=== PATIENT | male | born 1975 | race Caucasian/White ===

== ENCOUNTER 2022-10-19 11:10 | Inpatient (IN) ==
--- NOTE | 2022-10-19 12:24 | History & Physical Report ---
Date of Service October 19, 2022 Assessment & Plan (1) Diabetic foot infection: Plan: -Admit to med/surge -Currently stable -Initially noticed discoloration of his right great toe approximately 3 weeks ago, noticed pain, erythema, and swelling yesterday -XRay of the right foot at [facility] concerning for OM so transferred here for further evaluation and treatment -Stable leukocytosis today at 11 with left shift of 9, ESR of 34 with CRP of -Started on Vancomycin and Zosyn at [facility], due to continued leukocytosis and elevated inflammatory makes will continue on Vancomycin and Cefepime for now -Orthopedics consulted, they will see tomorrow, requesting MRI w/con of the Right foot, ordered -Will obtain arterial doppler with CRISTY of the RLE for further evaluation -Spelter control with Tylenol prn mild pain and 1 mg IV morphine q4h prn pain 5+ -DM II for now, will make NPO at midnight in case of OR tomorrow -BL SCD's for DVT PPX for now, will see if Ortho would want chemical PPX to be held at this time -AM CBC, CMP, Mag, PT/INR (2) Osteomyelitis of right foot: Plan: -Reported by ED staff at [facility] per their review of right foot xray -Will obtain MRI of the right foot w/con for further evaluation -ABX and management per diabetic foot infection (3) Hypokalemia: Plan: -Noted to be 3.2 on admission labs today -T-wave flattening noted on ECG but otherwise WNL -Likely due to his diuretic use -Will give 40 meq PO KCL q2h x 2 doses now -Hold diuretic for now -Will obtain mag level (4) DM II (diabetes mellitus, type II), controlled: Plan: -Hold metformin -Monitor BSG ACHS, goal is 110-140 -5 units lantus BID, CF 50, CR 15 for now -DM II diet -Adjust regimen as needed (5) Cough: Plan: -Patient has had a non-productive cough for the past month -No focal consolidation on CXR to suggest PNA, will need a non-emergent CT for follow up on left lung nodule -Will obtain full respiratory biofire -No signs of acute CHF on exam or imaging -Will try a duoneb and order prn antitussive for now, continue to monitor (6) Weight loss: Plan: -Patient's reports that the patient has unintentionally lost approximately 30 lbs since last February -Appetite has been good, no reported changes in bowel habits, neurologic symptoms, urinary symptoms -Has had the non-productive cough with left pulmonary nodule on CXR -Will need to ensure he has outpatient Chest CT scheduled prior to DC with close PCP FU (7) HTN (hypertension): Plan: -Stable -Continue amlodipine -Hold losartan-HCTZ for now with hypokalemia (8) Hyperlipemia: Plan: -Continue simvastatin (9) Cellulitis: (10) Abnormal CXR: Plan The patient was discussed with Dr. Monreal at the time of the admission History of Present Illness Chief Complaint: Osteomyelitis of the right great toe Constantin is a 46 year old male with a PMH significant for HTN, DMII with diabetic neuropathy, hyperlipidemia, and current smokeless tobacco use who was transferred to [facility] from [facility] due to concerns for OM of the great right toe and diabetic right foot wound. Per transfer documentation, the patient arrived to the [facility] ED yesterday after developing pain, swelling, and erythema of the great right toe. The patient remained stable. Labs were significant for a leukocytosis of 16 with left shift of 13, ESR of 21, and potassium of 3.2. Xray of the right foot was concerning for OM of the great right toe. The patient was started on Vancomycin and Zosyn, with his last dose of vancomyin given at 0900 today and last dose of zosyn given at 2pm yesterday. At the time of the exam the patient was lying in bed in no acute distress with his sitting bedside. He states that he started to develop pain, erythema, and swelling of the right great toe yesterday. When asked further, he states that he first noticed black discoloration of the right great toe approximately 3 weeks ago but did not think it was related to infection at that time. He has significant peripheral neuropathy of the feet from DM II and does not examine his feet regularly. His pain is currently a 3/10 and he denies recent fever or chills. His is concerned because he has had an approximately 30 lbs of unintentional weight loss since last February, he has not been trying to lose weight and has been eating frequently. Her has been using smokeless tobacco for 20+ years and had approximately 17 years of secondhand smoke exposure while growing up as both his parents smoke. He has had a non- productive cough for the past month, he denies previous hx of lung disease or CHF. He denies recent chest pain, SOB, abd pain, nausea, vomiting, diarrhea, changes in bowel habit or changes in stool calibers, melena, bloody BM's, dysuria, hematuria, LE swelling and recent trauma. He did have surgery shortly after due to pyloric stenosis and abdominal hernias. He states that he was born approximately 2 months prematurely. I explained that he will need to be evaluated by Orthopedics, who will need to take him to the OR during this admission for surgery. He is a full code and wishes for his to make medical decisions for him if he could not make them himself. Please refer to Dr. Monreal's attestation for any changes to the treatment plan Allergies Allergy/AdvReac Type Severity Reaction Status Date / Time No Known Allergies Allergy Unverified 10/19/22 13:47 Home Medications Medication Instructions Recorded Confirmed Type amlodipine 5 mg tablet 5 mg PO DAILY 10/19/22 10/19/22 History aspirin 81 mg PO DAILY 10/19/22 10/19/22 History losartan 100 1 tab PO DAILY 10/19/22 10/19/22 History mg-hydrochlorothiazide 25 mg tablet metformin 500 mg tablet 500 mg PO BID 10/19/22 10/19/22 History simvastatin 10 mg tablet 10 mg PO HS 10/19/22 10/19/22 History Past Med/Surg History Medical History (Updated 10/20/22 @ 09:05 by Richmond Monreal MD) DM II (diabetes mellitus, type II), controlled HTN (hypertension) Hyperlipemia Social History Smoking Status: Never smoker Do You Dip or Chew Tobacco: Yes; Hx Alcohol Use: Yes Hx Substance Use: No Preferred Language: [employer] Shift Lead Required: No Beliefs That Will Affect Care: None Current Living Situation: Family and Significant Other Current Living Situation Comment: patient living with significant other and patient's mother Other Information That Helps Us Care for You: No Feels Safe at Home: Yes Safety Concerns: Feels Safe At This Time Assistive Devices: Denture - Upper and Denture - Lower Physical Exam Physical Exam: Physical Exam: General: In no acute distress, older stated age, chronically ill appearing but non-toxic, poor hygiene HEENT: Normocephalic, atraumatic, no scleral icterus, pupils around round, symmetrical, and reactive to light, moist mucus membranes, trachea midline, no thyromegaly Chest/Pulm: No respiratory distress, symmetrical chest expansion, expiratory wheezing noted in the BL lower lung dos santos Cardiac: RRR, no murmurs noted Abdomen: Negative for ascites and bruising, normoactive bowel sounds, soft, non-tender to palpation throughout Musculoskeletal: Swelling and erythema of the right great to with associated discoloration and eschar, no other signs of acute infection or trauma noted Extremities: Radial, dorsalis pedis, and posterior tibial pulses are intact and symmetrical, no edema noted in the BL LE's Skin: Skin thickening of the medial aspect of the right great toe with blue/black skin changes on the distal aspect of the right great toe, erythema and swelling runs from the distal aspect to the proxial aspect of the right great toe, no signs of significant cellulitis Neuro: Alert and oriented to person, place, month, year, and president, no focal defects, CN II-XII tested and intact, no tremors noted Psych: No acute distress, calm and cooperative during the exam Results & Data Results & Data Laboratory Results Abnormal lab results 10/19/22 10/19/22 10/19/22 Range/Units 12:55 12:55 12:55 WBC 11.32 H (4.8-10.8) K/ul RBC 4.35 L (4.70-6.10) M/uL Hgb 12.7 L (14.0-18.0) g/dl Hct 36.0 L (42.0-52.0) % Neut # (Auto) 9.38 H (1.40-6.50) K/uL Lymph # (Auto) 0.90 L (1.2-3.4) K/uL [place] # (Auto) 0.95 H (0.11-0.59) K/uL ESR 34 H (0-15) mm/hr Sodium 135 L (136-145) mmol/L Potassium 3.2 L (3.5-5.1) mmol/L Glucose 119 H (70-99(Fasting)) mg/dl Calcium 8.5 L (8.6-10.3) mg/dl AST 10 L (13-39) U/L C-Reactive Protein 12.36 H (0-0.5) mg/dl Diagnostic Findings Chest X-Ray 10/19/22 12:42 XR chest 1V portable HISTORY: 46 years-old Male cough acute cough COMPARISON: None TECHNIQUE: AP view of the chest FINDINGS: Cardiomediastinal and hilar silhouettes are within normal limits. No pneumothorax, pleural effusion or overt pulmonary edema. An 0.8 cm nodular focus of the left midlung. Probable nipple shadow in the right lung base. Bones appear grossly intact. IMPRESSION: 1. No airspace consolidation typical for pneumonia. 2. 1.8 cm nodular focus of the left mid lung. Nonemergent follow-up chest CT recommended. ACT 112: Negative or not required by law. The above report was generated using voice recognition software. It may contain grammatical, syntax or spelling errors. Electronically signed by: Luis Miguel Stark M.D. 10/19/2022 1:23 PM ECG Additional Comments: Normal sinus rhythm Nonspecific T wave abnormality Abnormal ECG No previous ECGs available Code Status & VTE Plan Code Status Full code VTE Prophylaxis Plan VTE Prophylaxis will be ordered: Yes Supervising Physician Co-Signing Physician Notes I personally saw and examined the patient. I verified all bazan points and agree with Vargas Mary PA-C with the following exceptions and/or additions: 46 year old male with relatively recently diagnosed T2DM transfer from [facility] due to need for debridement for right 1st toe infection (no orthopedics at [place]). O/E A&Ox3, HS RRR, no murmurs, Chest CTAB, Abdo SNT, right 2st toe swelling with fluctuance, swelling and erythema up to ankle A/P Diabetic ulcer with surrounding cellulitis - Vancomycin + cefepime, US arterial doppler, consult orthopedics, NPO after midnight Abnormal CXR - given nodule seen on CXR, recent weight loss and possible need for surgery will get CT chest while here routinely in the morning to further evaluate this. Otherwise as above. PG Care Time/CCT Total # of Minutes Spent Total Time Spent with Patient: Total time spent is greater than 50% in coordination of care (as documented) at patient's floor/unit and/or counseling patient: C[place] [address] INT INP/OBS CARE MIN Patient Type Established Medical Decision Making High Complexity Diagnoses Diabetic foot infection E11.628; L08.9 Osteomyelitis of right foot M86.9 Hypokalemia E87.6 DM II (diabetes mellitus, type II), controlled E11.9 Cough R05.9 Weight loss R63.4 HTN (hypertension) I10 Hyperlipemia E78.5 Cellulitis L03.90 Abnormal CXR R93.89
[2022-10-19] MEDS ORDERED: GLUCAGON FOR INJ 1 MG VIAL SQ PRN (13:17)
[2022-10-19] MEDS ORDERED: DEXTROSE 50% 50 ML SYRINGE IV PRN (13:17)
[2022-10-19] MEDS ORDERED: GLUCOSE 10 TAB/TUBE PO PRN (13:17)
[2022-10-19] MEDS ORDERED: GLUCOSE 40% GEL 15 GM TUBE PO PRN (13:17)
[2022-10-19] MEDS ORDERED: CARBOHYDRATES FOR HYPOGLYCEMIA PO PRN (13:17)
[2022-10-19 13:19] LABS: Basophils # (auto) 0.03 K/uL (0-0.2); Basophils % (auto) 0.3 %; Eosinophils # (auto) 0.03 K/uL (0-0.50); Eosinophils % (auto) 0.3 %; Hemoglobin 12.7 g/dl (14.0-18.0); Immature Granulocytes # (auto) 0.03 K/uL (0.01-0.20); Immature Granulocytes % (auto) 0.3 %; Mean Corpuscular Hemoglobin 29.2 pg (25.0-34.0); Mean Corpuscular Hgb Conc 35.3 g/dL (32.0-36.0); Mean Corpuscular Volume 82.8 fL (80.0-100.0); Mean Platelet Volume 9.9 fL (9.4-12.4); Monocytes # (auto) 0.95 K/uL (0.11-0.59); Monocytes % (auto) 8.4 %; Neutrophils # (auto) 9.38 K/uL (1.40-6.50); Neutrophils % (auto) 82.7 %; Platelet Count 327 K/uL (130-400); RDW Coefficient of Variation 12.5 % (11.5-14.5); RDW Standard Deviation 38.5 fL (36.4-46.3); Red Blood Count 4.35 M/uL (4.70-6.10); White Blood Count 11.32 K/ul (4.8-10.8)
--- NOTE | 2022-10-19 13:25 | XRay Report ---
XR chest 1V portable HISTORY: 46 years-old Male cough acute cough COMPARISON: None TECHNIQUE: AP view of the chest FINDINGS: Cardiomediastinal and hilar silhouettes are within normal limits. No pneumothorax, pleural effusion o r overt pulmonary edema. An 0.8 cm nodular focus of the left midlung. Probable nipple shadow in the r ight lung base. Bones appear grossly intact. IMPRESSION: 1. No airspace consolidation typical for pneumonia. 2. 1.8 cm nodular focus of the left mid lung. Nonemergent follow-up chest CT recommended. ACT 112: Negative or not required by law. The above report was generated using voice recognition software. It may contain grammatical, syntax o r spelling errors. Electronically signed by: Luis Miguel Stark M.D. 10/19/2022 1:23 PM
[2022-10-19] MEDS ORDERED: ASPIRIN 81 MG ECTAB PO SCH (13:30)
[2022-10-19] MEDS ORDERED: VANCOMYCIN CONSULT ACTIVE PRN (13:30)
[2022-10-19 13:36] LABS: Albumin Globulin Ratio 1.1 (0.9-2); Albumin Level 3.5 gm/dl (3.4-5.0); BUN Creatinine Ratio 19.3 (10-20); Bilirubin,Total 0.8 mg/dl (0.2-1.0); C Reactive Protein 12.36 mg/dl (0-0.5); Calcium 8.5 mg/dl (8.6-10.3); Creatinine Clr Calc Pharmacy 105.6 ml/min; Est GFR (African American) 121.4 ml/min; Est GFR (Non-African American) 104.8 ml/min; Globulin 3.2 gm/dl (2.5-4.0); Potassium 3.2 mmol/L (3.5-5.1); Total Protein 6.7 gm/dl (6.0-8.3)
[2022-10-19] MEDS ORDERED: MoRPHine SULFATE 2 MG/ML CARP IV PRN (13:37)
[2022-10-19] MEDS ORDERED: Patient's ALLERGY Info needs ENTERED SCH (13:45)
[2022-10-19] MEDS: amLODIPine BESYLATE 5 MG TAB PO SCH (13:48)
[2022-10-19] MEDS: CEFEPIME 2,000 MG in SYRINGE 0 ML IV SCH ×2 (14:09→21:51)
[2022-10-19 14:43] LABS: Adenovirus PCR Not Detected (NotDetected); Bordetella parapertussis PCR Not Detected (NotDetected); Bordetella pertussis PCR Not Detected (NotDetected); Chlamydia pneumoniae PCR Not Detected (NotDetected); Coronavirus 229E PCR Not Detected (NotDetected); Coronavirus CoV-2 (COVID19)PCR Not Detected (NotDetected); Coronavirus HKU1 PCR Not Detected (NotDetected); Coronavirus NL63 PCR Not Detected (NotDetected); Coronavirus OC43PCR Not Detected (NotDetected); Human Metapneumovirus PCR Not Detected (NotDetected); Influenza A PCR Not Detected (NotDetected); Influenza B PCR Not Detected (NotDetected); Mycoplasma pneumoniae PCR Not Detected (NotDetected); Parainfluenza Virus 1 PCR Not Detected (NotDetected); Parainfluenza Virus 2 PCR Not Detected (NotDetected); Parainfluenza Virus 3 PCR Not Detected (NotDetected); Parainfluenza Virus 4 PCR Not Detected (NotDetected); Respiratory Syncytial VirusPCR Not Detected (NotDetected); Rhinovirus/Enterovirus PCR Not Detected (NotDetected)
[2022-10-19] MEDS ORDERED: ALBUT/IPRATROP 3MG/0.5MG NEB 3 ML VIAL NEB STA (14:48)
[2022-10-19] MEDS: POTASSIUM CHLORIDE CRTAB 20 MEQ TABCR PO SCH ×2 (15:04→17:32)
[2022-10-19] MEDS ORDERED: GADOBUTROL 65ML VIAL IV ONE ×2 (16:57→17:01)
[2022-10-19] MEDS: INSULIN ASPART PER UNIT CHARGE SC SCH ×2 (17:36→21:23)
[2022-10-19] MEDS: VANCOMYCIN HCL 1,250 MG in SODIUM CHLORIDE 0.9% 250 ML IV SCH (17:41)
--- NOTE | 2022-10-19 18:31 | Magnetic Resonance Report ---
MR foot RT wo/w con HISTORY: 46 years-old Male Concern for OM of right foot patient presents with open wound of the righ t great toe COMPARISON: Radiographs from outside facility 10/18/2022 TECHNIQUE: Multiplanar multisequence MRI of the right foot was obtained both with and without the use of IV contrast. FINDINGS: Motion degraded exam. There is extensive enhancing subcutaneous and deep tissue edema of the foot, most pronounced dorsally . Intramuscular edema is also present. Subcutaneous gas involves the plantar tissues of the great toe with moderate subcutaneous and deep tissue edema with associated skin thickening. There is an associ ated ulcer/open wound on the distal plantar surface. No drainable fluid collection. Moderate marrow e jono the first distal phalanx. No associated cortical erosions are identified. Mild osteoarthritis. M arginal spurring of the first MTP joint. Ligaments and tendons are suboptimally dilated secondary to the motion artifact. Lisfranc ligament ap pears intact. IMPRESSION: 1. Motion degraded exam. 2. Findings suggestive of cellulitis with myositis of the foot. 3. Plantar ulcer of the distal great toe with subcutaneous gas. This may be secondary to direct exten scotty versus gas-forming organism. 4. Moderate marrow edema of the first distal phalanx without osseous erosion suggestive of reactive o steitis versus early osteomyelitis. 5. No abscess. ACT 112: Negative or not required by law. The above report was generated using voice recognition software. It may contain grammatical, syntax o r spelling errors. Electronically signed by: Luis Miguel Stark M.D. 10/19/2022 6:28 PM
--- NOTE | 2022-10-19 18:34 | Pharmacy Report ---
Pharmacy PK ABX Note - Date of Service October 19, 2022 - Assessment and Plan Assessment 46 year old M receiving cefepime/vancomycin for treatment of diabetic foot ulcer (r/o osteomyelitis). Pertinent microbiologic data includes: blood cultures pending. Foot MRI and Ortho evaluation pending. Day # 1/? of antimicrobial therapy. Plan Vancomycin * Loading dose: 1250 mg IV at 0900 (given in [facility]) * Stat vancomycin random ordered to assess for safety/clearance, level below goal range * Maintenance dose: 1250 mg IV every 12 hours beginning at 1700 * Regimen is predicted to achieve target AUC/SANDIE of 400-600 mg/L.hr, estimated AUC/SANDIE 519 on current regimen, goal AUC/SANDIE 500-600 for potential osteomyelitis * Daily serum creatinine ordered, Trough level ordered for: 10/21/22 @ 0400 (before 4th dose) Pharmacy will continue to follow and will adjust dose/frequency as necessary. Thank you. Pharmacy has transitioned to AUC monitoring for vancomycin. AUC/SANDIE is the preferred PK/PD target and is associated with decreased risk of nephrotoxicity compared to traditional trough targets.
[2022-10-19] MEDS: LANTUS PER UNIT CHARGE SQ SCH (21:23)
[2022-10-19] MEDS: SIMVASTATIN 10 MG TAB PO SCH (21:24)
[2022-10-19] MEDS: guaiFENesin SUGAR FREE 200 MG/10 ML UDC PO PRN (21:24)
[2022-10-19] MEDS: ACETAMINOPHEN 325 MG TAB PO PRN (21:31)
[2022-10-20] MEDS ORDERED: Nursing to Pharmacy Communication SCH ×2 (01:45→16:30)
[2022-10-20] MEDS: VANCOMYCIN HCL 1,250 MG in SODIUM CHLORIDE 0.9% 250 ML IV SCH ×2 (04:36→16:30)
[2022-10-20] MEDS: INSULIN ASPART PER UNIT CHARGE SC SCH ×4 (05:53→21:09)
[2022-10-20] MEDS: CEFEPIME 2,000 MG in SYRINGE 0 ML IV SCH ×3 (07:22→21:10)
[2022-10-20] MEDS: ASPIRIN 81 MG ECTAB PO SCH (07:33)
[2022-10-20] MEDS: amLODIPine BESYLATE 5 MG TAB PO SCH (07:33)
[2022-10-20] MEDS: LANTUS PER UNIT CHARGE SQ SCH ×2 (08:47→21:09)
[2022-10-20 09:48] LABS: Basophils # (auto) 0.04 K/uL (0-0.2); Basophils % (auto) 0.4 %; Eosinophils # (auto) 0.08 K/uL (0-0.50); Eosinophils % (auto) 0.9 %; Hematocrit (blood only) 35.2 % (42.0-52.0); Hemoglobin 12.6 g/dl (14.0-18.0); Immature Granulocytes # (auto) 0.04 K/uL (0.01-0.20); Immature Granulocytes % (auto) 0.4 %; Lymphocytes # (auto) 1.07 K/uL (1.2-3.4); Lymphocytes % (auto) 11.8 %; Mean Corpuscular Hemoglobin 29.4 pg (25.0-34.0); Mean Corpuscular Hgb Conc 35.8 g/dL (32.0-36.0); Mean Corpuscular Volume 82.1 fL (80.0-100.0); Mean Platelet Volume 10.1 fL (9.4-12.4); Monocytes # (auto) 0.71 K/uL (0.11-0.59); Monocytes % (auto) 7.8 %; Neutrophils # (auto) 7.15 K/uL (1.40-6.50); Neutrophils % (auto) 78.7 %; Platelet Count 334 K/uL (130-400); RDW Coefficient of Variation 12.8 % (11.5-14.5); RDW Standard Deviation 38.7 fL (36.4-46.3); Red Blood Count 4.29 M/uL (4.70-6.10); White Blood Count 9.09 K/ul (4.8-10.8)
[2022-10-20 10:15] LABS: Albumin Level 3.3 gm/dl (3.4-5.0); BUN Creatinine Ratio 15.2 (10-20); Bilirubin,Total 0.6 mg/dl (0.2-1.0); C Reactive Protein 7.77 mg/dl (0-0.5); Calcium 8.4 mg/dl (8.6-10.3); Creatinine Clr Calc Pharmacy 110.8 ml/min; Est GFR (African American) 123.9 ml/min; Est GFR (Non-African American) 106.9 ml/min; Globulin 3.4 gm/dl (2.5-4.0); Potassium 3.5 mmol/L (3.5-5.1); Total Protein 6.7 gm/dl (6.0-8.3)
[2022-10-20] MEDS ORDERED: diphenhydrAMINE 50 MG/ML VIAL IV STA (10:16)
[2022-10-20 10:19] LABS: Prothrombin Time 11.4 Seconds (9.0-12.0)
[2022-10-20 10:31] LABS: Estimated Average Glucose 117 mg/dl; Hemoglobin A1C 5.7 % (4.5-5.6)
[2022-10-20] MEDS ORDERED: OPTIRAY 320 100ml IV ONE (10:35)
--- NOTE | 2022-10-20 11:06 | CT Scan Report ---
CT SCAN OF THE CHEST WITH IV CONTRAST CLINICAL HISTORY: Abnormal chest x-ray. Suspected pulmonary nodule. COMPARISON STUDY: Chest x-ray dated 10/19/2022. TECHNIQUE: Following the IV administration of 90 cc of Optiray 320, CT scan of the thorax was perform ed from the thoracic inlet to the upper abdomen. Images are reviewed in the axial, sagittal, and eryn nal planes. IV contrast was administered without complication. A dose lowering technique was utilize d adhering to the principles of ALARA. CT DOSE: 799.64 mGy.cm FINDINGS: Thyroid: Imaged portions of the thyroid gland are normal in size and attenuation. A coarse calcificat ion is seen in the right lobe. Thoracic aorta: The thoracic aorta is normal in caliber and demonstrates bovine variant arch anatomy. No dissection is seen. Pulmonary vasculature: The pulmonary trunk is normal in caliber. There are no filling defects identif ied in the central pulmonary vessels to indicate pulmonary embolus. Note that this examination was no t protocoled for evaluation of the pulmonary arteries. Heart: The heart is top normal in size and without pericardial effusion. Lungs and pleural spaces: There is patchy airspace consolidation in the right middle, with mild tree- in-bud consolidation also seen at the right lung base. Additionally, there is a 2.3 cm irregular nodu le in the left lower lobe along the major fissure seen on image #115. This corresponds to the abnorma lity seen on yesterday's chest x-ray. No pleural effusion is identified. The trachea and central airw ays are clear. Mediastinum: There is no mediastinal lymphadenopathy. Mayi: Clear. Axillae: There is no axillary lymphadenopathy. Upper abdomen: There is a small hiatal hernia. A calcified granuloma is noted in the liver. Skeletal structures: No lytic or blastic bony lesions are seen. There are minimal chronic appearing c ompression deformities in the thoracic spine. IMPRESSION: 1. There is patchy airspace consolidation in the right middle lobe, as well as tree-in-bud nodularity in the right lower lobe. This is typical for an infectious/inflammatory pneumonitis. Clinical correl ation will be required. 2. There is a 2.3 cm irregular nodular density in the left lower lobe along the major fissure, which corresponds to the abnormality seen on yesterday's chest x-ray. There is is pathologically indetermin ant, and given the findings in the right lung may be on an infectious/inflammatory basis. Neoplasm is to be excluded, and a one-month follow-up chest CT is recommended for reassessment. 3. There is no mediastinal or hilar lymphadenopathy. 4. No pleural effusion is seen. 5. Additional findings as above. ACT 112: Positive. There are findings on this exam that require communication between the performing entity and the patient following Patient Test Result Information Act ([place] Act 112) guidelines. Electronically signed by: Tobi Katz M.D. 10/20/2022 11:05 AM
--- NOTE | 2022-10-20 11:15 | Ultrasound Report ---
US arterial duplex LE RT CLINICAL HISTORY: diabetic foot wounds TECHNIQUE: Real-time grayscale and color and spectral Doppler ultrasound imaging of the right lower e xtremity arteries was performed. Measurements calculated based NASCET criteria. COMPARISON: None available at the time of this dictation. FINDINGS: Right lower extremity Doppler: No significant plaque is seen. Triphasic waveforms are seen throughout without elevated velocities. Multiple lymph nodes are seen in the right inguinal region measuring up to 1.2 cm in short axis with fatty dragan. ANKLE/BRACHIAL INDEX (CRISTY): Brachial: Right: 175 mmHg. Ankle (dorsalis pedis): Right: >225 mmHg. Ankle (posterior tibial): Right: >225 mmHg. Ankle/brachial index: Right: >1.0 Reference ranges: Normal Ankle/Brachial Index (CRISTY) 1.0-1.4; 0.91-0.99 borderline; < or = 0.9 abnormal (0.7-0.89 mild, 0.51-0.69 moderate, < or = 0.5 severe peripheral arterial disease). Normal Toe/Brachial Index (TBI) > or = 0.6; < 0.6 abnormal (0.34-0.59 mild, 0.12-0.34 moderate, < or = 0.11 severe peripheral arterial disease). IMPRESSION: 1. No hemodynamically significant stenosis. 2. Normal ankle-brachial indices. ACT 112: Negative or not required by law. Electronically signed by: Altaf Murguia M.D. 10/20/2022 11:14 AM
[2022-10-20] MEDS: SIMVASTATIN 10 MG TAB PO SCH (21:10)
[2022-10-20] MEDS: guaiFENesin SUGAR FREE 200 MG/10 ML UDC PO PRN (21:11)
[2022-10-20] MEDS ORDERED: HEPARIN SOD 5,000 UNIT/0.5 ML VIAL SQ STA (22:53)
--- NOTE | 2022-10-20 22:53 | Hospitalist Progress Note ---
Date of Service October 20, 2022 Assessment & Plan (1) Diabetic foot infection: Plan: -Admit to med/surge -Currently stable -Initially noticed discoloration of his right great toe approximately 3 weeks ago, noticed pain, erythema, and swelling yesterday -XRay of the right foot at [facility] concerning for OM so transferred here for further evaluation and treatment -Stable leukocytosis today at 11 with left shift of 9, ESR of 34 with CRP of -Started on Vancomycin and Zosyn at [facility], due to continued leukocytosis and elevated inflammatory makes will continue on Vancomycin and Cefepime for now -Orthopedics consulted, they will see tomorrow, requesting MRI w/con of the Right foot, ordered -Will obtain arterial doppler with CRISTY of the RLE for further evaluation -[place] control with Tylenol prn mild pain and 1 mg IV morphine q4h prn pain 5+ -DM II for now, will make NPO at midnight in case of OR tomorrow -BL SCD's for DVT PPX for now, will see if Ortho would want chemical PPX to be held at this time -AM CBC, CMP, Mag, PT/INR On 10/20 will be NPO after midnight, plan for amputation of infected tissue on 10/21 (2) Osteomyelitis of right foot: Plan: -Reported by ED staff at [facility] per their review of right foot xray -Will obtain MRI of the right foot w/con for further evaluation -ABX and management per diabetic foot infection (3) Hypokalemia: Plan: -Noted to be 3.2 on admission labs today -T-wave flattening noted on ECG but otherwise WNL -Likely due to his diuretic use -Will give 40 meq PO KCL q2h x 2 doses now -Hold diuretic for now -Will obtain mag level (4) DM II (diabetes mellitus, type II), controlled: Plan: -Hold metformin -Monitor BSG ACHS, goal is 110-140 -5 units lantus BID, CF 50, CR 15 for now -DM II diet -Adjust regimen as needed (5) Cough: Plan: -Patient has had a non-productive cough for the past month -No focal consolidation on CXR to suggest PNA, will need a non-emergent CT for follow up on left lung nodule -Will obtain full respiratory biofire -No signs of acute CHF on exam or imaging -Will try a duoneb and order prn antitussive for now, continue to monitor (6) Weight loss: Plan: -Patient's reports that the patient has unintentionally lost approximately 30 lbs since last February -Appetite has been good, no reported changes in bowel habits, neurologic symptoms, urinary symptoms -Has had the non-productive cough with left pulmonary nodule on CXR -Will need to ensure he has outpatient Chest CT scheduled prior to DC with close PCP FU (7) HTN (hypertension): Plan: -Stable -Continue amlodipine -Hold losartan-HCTZ for now with hypokalemia (8) Hyperlipemia: Plan: -Continue simvastatin (9) Cellulitis: (10) Abnormal CXR: Admission and Anticipated Discharge Date Admission Date: October 19, 2022 Subjective Patient reports no new symptoms. Review of Systems Review of Systems: All systems reviewed & are unremarkable except as noted in HPI & below Physical Exam Physical Exam: General: In no acute distress, older stated age, chronically ill appearing but non-toxic HEENT: Normocephalic, atraumatic Chest/Pulm: No respiratory distress, symmetrical chest expansion, expiratory wheezing noted in the BL lower lung dos santos Cardiac: RRR, no murmurs noted Abdomen: Negative for ascites and bruising, normoactive bowel sounds, soft, non-tender to palpation throughout Musculoskeletal: Swelling and erythema of the right great to with associated discoloration and eschar, no other signs of acute infection or trauma noted Extremities: Radial, dorsalis pedis, and posterior tibial pulses are intact and symmetrical, no edema noted in the BL LE's Skin: Skin thickening of the medial aspect of the right great toe with blue/black skin changes on the distal aspect of the right great toe, erythema and swelling runs from the distal aspect to the proxial aspect of the right great toe, no signs of significant cellulitis Neuro: Alert and oriented to person, place, month, year, and president, no focal defects, CN II-XII tested and intact, no tremors noted Psych: No acute distress, calm and cooperative during the exam Results & Data Results & Data Vital Signs (Past 12 Hours) Vital Signs Temp Pulse Resp BP Pulse Ox O2 Del Method 10/20/22 21:26 Room Air 10/20/22 20:49 36.4 C L 76 18 167/90 H 98 Room Air 10/20/22 16:38 36.7 C 76 17 166/92 H 98 Room Air PG Care Time/CCT Total # of Minutes Spent Total Time Spent with Patient: Total time spent is greater than 50% in coordination of care (as documented) at patient's floor/unit and/or counseling patient: Coding Level of Care Code 01322 SUB INP/OBS CARE 2/35MIN Diagnoses Diabetic foot infection E11.628; L08.9 Osteomyelitis of right foot M86.9 Hypokalemia E87.6 DM II (diabetes mellitus, type II), controlled E11.9 Cough R05.9 Weight loss R63.4 HTN (hypertension) I10 Hyperlipemia E78.5 Cellulitis L03.90 Abnormal CXR R93.89
--- NOTE | 2022-10-21 01:00 | Consultation Report ---
DATE OF CONSULTATION: 10/20/2022. PERTINENT HISTORY: This is a 46-year-old gentleman seen at request of Dr. Richmond Monreal and Dr. Dipak Beltran for complaints of right great toe pain, swelling, redness and ulceration. The patient elan martinez noticed discoloration of his right great toe approximately 3 weeks prior to admission. He n oticed pain, erythema and swelling, which worsened the day before admission. He was seen at [facility] where he had x-rays of the right foot. Radiographs were concerning for osteom yelitis, so he was transferred here to [facility] for further care and management. He was noted to have leukocytosis of 11.0 with a left shift of 9, ESR of 34 with an elevated CRP not ed to be 12.36. The patient was placed on IV antibiotics. Radiographs were transferred from [facility] and the patient was then scheduled for an MRI with contrast to further delineate the z one of injury of the great toe. Per MRI noted to have features consistent with osteitis, possible ea rly osteomyelitis of the distal phalanx of the right great toe with gas noted at the plantar distal a spect of the right great toe. No other complaints. The patient also did note that he has had a nonp roductive cough for the past month and there were some changes on his chest x-ray requiring further w orkup. The patient had complaints of discomfort related to the right great toe. No other concerns. PAST MEDICAL HISTORY: Diabetes mellitus, type 2, hypertension, hyperlipidemia. PAST SURGICAL HISTORY: Noncontributory. ALLERGIES: No known drug allergies. MEDICATIONS: Amlodipine, aspirin, losartan, metformin, and simvastatin. SOCIAL HISTORY: The patient denies cigarette use; however, he does use smokeless tobacco. Denies si gnificant alcohol use. Denies drug use. He lives with his significant other and his mother. He is employed at [employer] in [employer]. PHYSICAL EXAMINATION: This is a 46-year-old gentleman, who is alert and oriented x3. Speech is christiano r and fluent. Affect is appropriate. He answers questions appropriately. He currently says timing with his significant other during the evaluation. Focused examination of the right foot demonstrates significant swelling of the right great toe from the first metatarsophalangeal joint extending dista lly. The redness and streaking, which begins at the distal tip of the right great toe extending prox imally with some streaking noted along the medial midfoot extending to the hindfoot. The patient has tenderness to palpation over the great toe. Limited range of motion due to pain and swelling. Peda l pulses are palpable, 2/4 bilateral feet. Bilateral feet are warm. Sensation is intact with normal sensory distribution proximal to the mid foot. There are features consistent with early neuropathy distal to the mid foot, bilateral feet. There is an ulceration of the distal tip of the right great toe and there is skin thickening of the right great toe with callus formation and there appears to be gas formation in the subepithelial, subdermal region of the distal aspect of right great toe. Radiographs and MRI reviewed. Laboratories reviewed. IMPRESSION: 1. Right great toe osteomyelitis of distal phalanx. 2. Diabetic ulceration, right great toe. 3. Exostoses of the proximal phalanx, great toe. RECOMMENDATION: At this time, the patient is scheduled for surgical amputation of the distal phalanx of the right great toe as well as exostectomy of the proximal phalanx of the right great toe. He tom uld remain on IV antibiotics for approximately 24-48 hours after surgical procedure is completed and then transitioned home with p.o. antibiotics per recommendation of the medical team. All potential r isks, benefits, complications, alternatives and rehabilitation were discussed with the patient and alhaji cortez questions answered. The patient is currently scheduled for surgery to occur on the morning of 10/2022. Thank you for the opportunity to consult in care of this patient. Job ID: [id number]
[2022-10-21] MEDS ORDERED: Nursing to Pharmacy Communication SCH ×2 (02:45→16:30)
[2022-10-21] MEDS ORDERED: VANCOMYCIN LEVEL ONE (04:00)
[2022-10-21 04:32] LABS: Basophils # (auto) 0.04 K/uL (0-0.2); Basophils % (auto) 0.5 %; Eosinophils # (auto) 0.17 K/uL (0-0.50); Eosinophils % (auto) 2.1 %; Hematocrit (blood only) 36.2 % (42.0-52.0); Hemoglobin 12.7 g/dl (14.0-18.0); Immature Granulocytes # (auto) 0.02 K/uL (0.01-0.20); Immature Granulocytes % (auto) 0.2 %; Lymphocytes # (auto) 1.45 K/uL (1.2-3.4); Mean Corpuscular Hemoglobin 29.5 pg (25.0-34.0); Mean Corpuscular Hgb Conc 35.1 g/dL (32.0-36.0); Mean Corpuscular Volume 84.2 fL (80.0-100.0); Mean Platelet Volume 10.1 fL (9.4-12.4); Monocytes # (auto) 0.73 K/uL (0.11-0.59); Monocytes % (auto) 9.1 %; Neutrophils # (auto) 5.64 K/uL (1.40-6.50); Neutrophils % (auto) 70.1 %; Platelet Count 352 K/uL (130-400); RDW Coefficient of Variation 12.7 % (11.5-14.5); RDW Standard Deviation 39.2 fL (36.4-46.3); White Blood Count 8.05 K/ul (4.8-10.8)
[2022-10-21 04:41] LABS: Albumin Level 3.2 gm/dl (3.4-5.0); BUN Creatinine Ratio 20.4 (10-20); Bilirubin,Total 0.4 mg/dl (0.2-1.0); C Reactive Protein 5.03 mg/dl (0-0.5); Calcium 8.5 mg/dl (8.6-10.3); Creatinine Clr Calc Pharmacy 89.3 ml/min; Est GFR (Non-African American) 91.4 ml/min; Globulin 3.1 gm/dl (2.5-4.0); Potassium 3.6 mmol/L (3.5-5.1); Total Protein 6.3 gm/dl (6.0-8.3)
[2022-10-21] MEDS: CEFEPIME 2,000 MG in SYRINGE 0 ML IV SCH ×3 (05:01→21:33)
[2022-10-21] MEDS: VANCOMYCIN HCL 1,250 MG in SODIUM CHLORIDE 0.9% 250 ML IV SCH ×3 (05:03→21:33)
[2022-10-21 05:15] LABS: Prothrombin Time 11.1 Seconds (9.0-12.0)
--- NOTE | 2022-10-21 06:14 | Electrocardiogram Report ---
Test Reason : Blood Pressure : / mmHG Vent. Rate : 076 BPM Atrial Rate : 076 BPM P-R Int : 136 ms QRS Dur : 088 ms QT Int : 388 ms P-R-T Axes : 047 036 103 degrees QTc Int : 436 ms Normal sinus rhythm Nonspecific T wave abnormality Abnormal ECG No previous ECGs available Confirmed by Jeff Goddard ([id number]) on 10/21/2022 6:13:45 AM Referred By: MORENITA GILLESPIE Confirmed By:Jeff Goddard
[2022-10-21] MEDS: INSULIN ASPART PER UNIT CHARGE SC SCH ×4 (06:34→21:32)
[2022-10-21] MEDS: amLODIPine BESYLATE 5 MG TAB PO SCH (07:24)
[2022-10-21] MEDS: ASPIRIN 81 MG ECTAB PO SCH (07:24)
[2022-10-21] MEDS: LANTUS PER UNIT CHARGE SQ SCH ×2 (07:24→21:32)
--- NOTE | 2022-10-21 11:31 | Pharmacy Report ---
Pharmacy PK ABX Note - Date of Service October 21, 2022 - Assessment and Plan Assessment 10/20 * Pt remains on vancomycin and cefepime for R great toe infection. * MRI with possible early osteomyelitis. Pt is scheduled for surgical amputation today. * Per ortho, rec continue IV abx [id number] post-op with transition to PO abx at discharge. * Vanc level obtained this morning. While not yet at steady-state, level was lower than desired for indication. Dosing re-timed as modified "load" to get vanc level into goal AUC range more quickly. 10/19 * 46 year old M receiving cefepime/vancomycin for treatment of diabetic foot ulcer (r/o osteomyelitis). Pertinent microbiologic data includes: blood cultures pending. Foot MRI and Ortho evaluation pending. * Day # 1/? of antimicrobial therapy. Plan Vancomycin * Loading dose: 1250 mg IV at 0900 (given in [facility] ER) * Maintenance dose: continue 1250 mg IV every 12 hours, with next dose closely following this morning's dose * Regimen is predicted to achieve target AUC/SANDIE 500-600, for potential osteomyelitis * No further levels have been ordered at this time. If patient remains on vanc beyond an additional 48hr, will re-consider the need for additional monitoring. Pharmacy will continue to follow and will adjust dose/frequency as necessary. Thank you. Pharmacy has transitioned to AUC monitoring for vancomycin. AUC/SANDIE is the preferred PK/PD target and is associated with decreased risk of nephrotoxicity compared to traditional trough targets.
--- NOTE | 2022-10-21 11:37 | History & Physical Bridge Note ---
Date of Service October 21, 2022 History & Physical Bridge Note I have examined the patient, reviewed the History & Physical and in the interval since the performance of the History & Physical I have noted the following changes of clinical significance: no changes noted
[2022-10-21] MEDS ORDERED: MIDAZOLAM HCL 1 MG/ML 2ML VIAL ONE (11:39)
[2022-10-21] MEDS ORDERED: LIDOCAINE 2% 2 ML VIAL/AMP(20MG/ML) INFIL ONE (11:39)
[2022-10-21] MEDS ORDERED: ONDANSETRON INJ 2 MG/ML 2 ML VIAL ONE (11:39)
[2022-10-21] MEDS ORDERED: PROPOFOL IV EMULSION 10 MG/ML 20 ML VIAL IV ONE ×2 (11:39→12:51)
[2022-10-21] MEDS ORDERED: fentaNYL citrate PF 100 MCG/2 ML VIAL ONE (11:39)
[2022-10-21] MEDS ORDERED: BUPIVACAINE 0.5 % 5 MG/1 ML MPF 30ML VIAL ONE (11:58)
[2022-10-21] MEDS ORDERED: ceFAZolin 330 MG/ML 1 GM VIAL ONE (11:58)
--- NOTE | 2022-10-21 12:17 | Anesthesiology Consultation ---
Date of Service October 21, 2022 Assessment & Plan Chart Review Chart Review: Acceptable Risk for Surgery Consults Requested none History Surgery Operation Date: 10/21/22 11:25 Proposed Procedures p Right Great Toe Amputation - Kan Preston DO Height/Weight Height: 5 ft 5 in Weight: 77.111 kg Allergies Allergy/AdvReac Type Severity Reaction Status Date / Time No Known Allergies Allergy Unverified 10/19/22 13:47 Medications Home Medications Medication Instructions Recorded Confirmed Last Taken amlodipine 5 mg tablet 5 mg PO DAILY 10/19/22 10/19/22 Unknown aspirin 81 mg PO DAILY 10/19/22 10/19/22 Unknown losartan 100 1 tab PO DAILY 10/19/22 10/19/22 Unknown mg-hydrochlorothiazide 25 mg tablet metformin 500 mg tablet 500 mg PO BID 10/19/22 10/19/22 Unknown simvastatin 10 mg tablet 10 mg PO HS 10/19/22 10/19/22 Unknown Active Medications Generic Name Dose Route Start Last Admin Trade Name Freq PRN Reason Stop Dose Admin Acetaminophen 650 mg 10/19/22 13:37 10/19/22 21:31 Acetaminophen 325 Mg Tab PO 11/18/22 13:36 650 mg Q4H PRN Administration pain(1,2,3,4) or fever Amlodipine Besylate 5 mg 10/19/22 13:30 10/21/22 07:24 Amlodipine Besylate 5 Mg Tab PO 11/18/22 13:29 5 mg DAILY CATALINA Administration Aspirin 81 mg 10/20/22 09:00 10/21/22 07:24 Aspirin 81 Mg Ectab PO 11/19/22 08:59 81 mg DAILY CATALINA Administration Guaifenesin 200 mg 10/19/22 15:11 10/20/22 21:11 Guaifenesin Sugar Free 200 Mg/10 Ml Udc PO 11/18/22 15:10 200 mg Q6H PRN Administration Cough Cefepime HCl 2,000 mg/ Syringe 20 mls @ 5 mls/min 10/19/22 14:00 10/21/22 05:01 IV 11/30/22 13:59 5 mls/min Q8H CATALINA Administration Protocol Vancomycin HCl 1,250 mg/ 275 mls @ 100 mls/hr 10/19/22 17:00 10/21/22 10:38 Sodium Chloride IV 11/30/22 16:59 100 mls/hr Q12H CATALINA Administration Protocol Insulin Aspart 0 units 10/21/22 06:00 10/21/22 11:31 Insulin Aspart Per Unit Charge SC 11/19/22 16:29 Not Given Q6 CATALINA Insulin Glargine 5 units 10/19/22 21:00 10/21/22 07:24 Lantus Per Unit Charge SQ 11/18/22 20:59 Not Given BID CATALINA Simvastatin 10 mg 10/19/22 21:00 10/20/22 21:10 Simvastatin 10 Mg Tab PO 11/18/22 20:59 10 mg HS CATALINA Administration NPO Date Last Intake of Fluids: 10/20/22 Time Last Intake of Fluids: 21:00 Date Last Intake of Solids: 10/20/22 Time Last Intake of Solids: 21:00 Past Medical History Medical History (Updated 10/20/22 @ 09:05 by Richmond Monreal MD) DM II (diabetes mellitus, type II), controlled HTN (hypertension) Hyperlipemia Social History Smoking Status: Never smoker tobacco type: smokeless tobacco Do You Dip or Chew Tobacco: Yes Hx Alcohol Use: Yes alcohol intake frequency: holidays/special occasions only Alcohol Intake Frequency Comment: very seldom, no hard liquor Hx Substance Use: No Physical Exam Vital Signs Last Vital Signs Temp 36.8 C 10/21/22 11:47 Pulse 69 10/21/22 11:47 Resp 18 10/21/22 11:47 BP 169/107 H 10/21/22 11:47 Pulse Ox 99 10/21/22 11:47 O2 Del Method Room Air 10/21/22 11:47 Testing Laboratory Results 10/21/22 04:11 10/21/22 04:11 PT 11.1 Seconds (9.0-12.0) 10/21/22 04:11 INR 1.0 (0.9-1.1) 10/21/22 04:11 Hemoglobin A1c 5.7 % (4.5-5.6) H 10/20/22 09:19 10/19/22 12:55 Aerobic Blood Culture - Preliminary Blood No growth in Aerobic bottle after 24 hours. Anaerobic Blood Culture - Preliminary No growth in Anaerobic bottle after 24 hours. 10/19/22 12:55 Aerobic Blood Culture - Preliminary Blood No growth in Aerobic bottle after 24 hours. Anaerobic Blood Culture - Preliminary No growth in Anaerobic bottle after 24 hours. 10/21/22 10/21/22 11:22 06:32 POC Glucose 91 108 H
[2022-10-21] MEDS ORDERED: fentaNYL citrate PF 100 MCG/2 ML VIAL IV PRN (12:18)
[2022-10-21] MEDS ORDERED: ONDANSETRON INJ 2 MG/ML 2 ML VIAL IV PRN (12:18)
[2022-10-21] MEDS ORDERED: ATROPINE SULFATE 0.1 MG/ML 10ML SYR IV PRN (12:18)
[2022-10-21] MEDS ORDERED: ePHEDrine sulfate 50 MG/ML AMP IV PRN (12:18)
[2022-10-21] MEDS ORDERED: HYDROmorphone INJ 2 MG/ML SYR/VIAL IV PRN (12:18)
[2022-10-21] MEDS ORDERED: PROMETHAZINE HCL 12.5 MG in SODIUM CHLORIDE 0.9% 50 ML IV PRN (12:18)
--- NOTE | 2022-10-21 13:25 | Post Operative Brief Note ---
Immediate Post Op Note v1 Date of Surgery October 21, 2022 Pre & Post Diagnosis Operation Date: 10/21/22 11:25 Pre-Op Diagnosis: 1. Right great toe osteomyelitis of distal phalanx. 2. Diabetic ulceration, right great toe. 3. Exostoses of the proximal phalanx, great toe. Post-Op Diagnosis: 1. Right great toe osteomyelitis of distal phalanx. 2. Diabetic ulceration, right great toe. 3. Exostoses of the proximal phalanx, great toe. I identified the patient and participated in the time-out.: Yes Procedure Operation Date: 10/21/22 11:25 Actual Procedures p #1 Right Great Toe Amputation distal phalanx and necrotic tissue. #2 exostect leana proximal phalanx great toe. #3 debridement diabetic ulceration plantar medial great toe 1.0 cm x 1.0 cm. (Right) - Kan Preston DO Surgeon Kan Preston DO Yeast Tender None Estimated Blood Loss 1 Findings Consistent with Post-Op Diagnosis Specimens Distal phalanx and tissue right great toe amputation Anesthesia Type MAC Regional Complications none Disposition Accompanied Patient To Recovery: No
--- NOTE | 2022-10-21 13:30 | Anesthesiology Progress Note ---
Date of Service October 21, 2022 Anesthesia Post Procedure Vital Signs Vital Signs: Temp Pulse Pulse Pulse Resp BP BP 10/21/22 13:20 76 16 144/93 H 10/21/22 13:14 36.8 C 83 17 133/88 10/21/22 11:47 36.8 C 69 69 18 169/107 H 10/21/22 09:16 69 163/96 H 10/21/22 07:20 36.4 C L 85 18 172/104 H 10/20/22 21:26 10/20/22 20:49 36.4 C L 76 18 167/90 H 10/20/22 16:38 36.7 C 76 17 166/92 H Pulse Ox O2 Del Method O2 Flow Rate 10/21/22 13:20 99 Oxymask 9 10/21/22 13:14 98 Oxymask 9 10/21/22 11:47 99 Room Air 10/21/22 09:16 98 Room Air 10/21/22 07:20 97 Room Air 10/20/22 21:26 Room Air 10/20/22 20:49 98 Room Air 10/20/22 16:38 98 Room Air Transfer of Care Handoff Completed per policy Notes Mental Status: alert / awake / arousable and participated in evaluation Patient Amnestic to Procedure: Yes Nausea / Vomiting: adequately controlled Pain: adequately controlled Airway Patency, RR, SpO2: stable & adequate BP & HR: stable & adequate Hydration State: stable & adequate Anesthetic Complications: no major complications apparent
--- NOTE | 2022-10-21 14:49 | Operative Report (OR) ---
DATE OF PROCEDURE: 10/21/2022. PREOPERATIVE DIAGNOSES: 1. Right great toe osteomyelitis of the distal phalanx. 2. Exostoses of the proximal phalanx great toe, right foot. 3. Diabetic ulcer, plantar medial right great toe, 1.0 cm x 1.0 cm. POSTOPERATIVE DIAGNOSES: 1. Right great toe osteomyelitis of the distal phalanx. 2. Exostoses of the proximal phalanx great toe, right foot. 3. Diabetic ulcer, plantar medial right great toe, 1.0 cm x 1.0 cm. PROCEDURE: 1. Right great toe amputation, distal phalanx and tissue. 2. Exostectomy of the proximal phalanx, right great toe. 3. Debridement diabetic ulcer, 1.0 cm x 1.0 cm. SURGEON: Kan Preston DO. ABAP DEVELOPER: None. ANESTHESIA: Local MAC. SPECIMENS: Distal phalanx and tissue, right great toe amputation. DRAINS: None. COMPLICATIONS: None. BLOOD LOSS: 1 mL. PERTINENT HISTORY: This is a 46-year-old gentleman who has had approximately 3- week history of pain, swelling, and redness of his right great toe. He eventually began to have fevers and he had pain with ambulation. He then presented to [facility]. On radiographs, there was concern for osteomyelitis of the great toe. He was then sent to [facility] for care and management. After MRI demonstrated definitive osteomyelitis with abscess and gas forming organism within the distal phalanx, the patient was then scheduled for surgery as indicated. All potential risks, benefits, complications, alternatives, rehab potential for incomplete relief of symptoms, need for further surgery, DVT, PE, , persistent pain, swelling, scarring, weakness, neurovascular injury, wound complications, need for further amputation was discussed with the patient and his significant other. They both decided to proceed with the procedure as indicated. DESCRIPTION OF PROCEDURE: The patient was taken to the operative suite and placed supine on the operating table. After review of consent, identification of proper operative site, the patient was sedated. Right lower extremity was identified per consent and timeout was performed. A sterile prep and drape was then performed of the right foot and then the limb was elevated and partially exsanguinated from the hindfoot proximally using an Esmarch bandage over a surgical towel. Tourniquet was applied over the towel and then after surgical timeout was confirmed, the digital block was then performed with approximately 20 mL of 0.5% Marcaine plain of the right great toe and then after this was completed, a 15 blade scalpel was used to make a circumferential racket style incision with a larger plantar lateral flap to excise the necrotic tissue and preserve as much of the flap as possible for closure. Next, the 15 blade was then used to enter the dorsal joint capsule and this was used to skeletonize the distal phalanx through the joint capsule and then using towel clips and gentle traction, the circumferential incision was then carried through the soft tissue leaving a full-thickness flap for closure. The osteomyelitis infected distal phalanx was then passed off as specimen including the necrotic tissue associated. Next, a 15 blade was then used to trim the collateral ligaments and then circumferentially dissect around the distal aspect of the proximal phalanx. Large exostosis were noted, which would definitely produce further ulceration. Then, a sagittal saw was then used to resect the exostoses of the distal aspect of the proximal phalanx of the great toe. A rongeur was then used to smooth and contour the remaining bone and a file was then used to smooth and contour the bone to a fine edge. Next, a copious irrigation with sterile saline was performed until clear. New top gloves were changed, top sheet was changed, and then the 1.0 cm x 1.0 cm diabetic ulcer was then debrided with a 15 blade scalpel down to a stable base, removing necrotic tissue and slough to preserve as much tissue to close as possible. The flaps were then revised with a 15- blade scalpel and a loose closure was then performed with a trial closure. Final irrigation was performed with sterile saline until clear and then two deep 3-0 Vicryl sutures were placed away from the area of tissue contamination to retain the contour of the toe and then the rest of the closure was then performed with interrupted 3-0 nylon sutures using combination of vertical mattress and simple sutures. Finally, a sterile compressive dressing was applied, overwrapped with Xeroform gauze, sterile 4 x 4s, cast padding, and a 4- inch Nehemias wrap. The tourniquet was released. The patient was awakened and taken to recovery in stable condition. Job ID: [id number] [facility]
[2022-10-21] MEDS: guaiFENesin SUGAR FREE 200 MG/10 ML UDC PO PRN (21:33)
[2022-10-21] MEDS: SIMVASTATIN 10 MG TAB PO SCH (21:33)
--- NOTE | 2022-10-21 22:35 | Hospitalist Progress Note ---
Date of Service October 21, 2022 Assessment & Plan (1) Diabetic foot infection: Plan: -Admit to med/surge -Currently stable -Initially noticed discoloration of his right great toe approximately 3 weeks ago, noticed pain, erythema, and swelling yesterday -XRay of the right foot at [facility] concerning for OM so transferred here for further evaluation and treatment -Stable leukocytosis today at 11 with left shift of 9, ESR of 34 with CRP of -Started on Vancomycin and Zosyn at [facility], due to continued leukocytosis and elevated inflammatory makes will continue on Vancomycin and Cefepime for now -Orthopedics consulted, they will see tomorrow, requesting MRI w/con of the Right foot, ordered -Will obtain arterial doppler with CRISTY of the RLE for further evaluation -[place] control with Tylenol prn mild pain and 1 mg IV morphine q4h prn pain 5+ -DM II for now, will make NPO at midnight in case of OR tomorrow -BL SCD's for DVT PPX for now, will see if Ortho would want chemical PPX to be held at this time -AM CBC, CMP, Mag, PT/INR On 10/20 will be NPO after midnight, plan for amputation of infected tissue on 10/21 On 10/21 Patient tolerated the procedure, patient does not appear to be septic (2) Osteomyelitis of right foot: Plan: -Reported by ED staff at [facility] per their review of right foot xray -Will obtain MRI of the right foot w/con for further evaluation -ABX and management per diabetic foot infection (3) Hypokalemia: Plan: -Noted to be 3.2 on admission labs today -T-wave flattening noted on ECG but otherwise WNL -Likely due to his diuretic use -Will give 40 meq PO KCL q2h x 2 doses now -Hold diuretic for now -Will obtain mag level (4) DM II (diabetes mellitus, type II), controlled: Plan: -Hold metformin -Monitor BSG ACHS, goal is 110-140 -5 units lantus BID, CF 50, CR 15 for now -DM II diet -Adjust regimen as needed (5) Cough: Plan: -Patient has had a non-productive cough for the past month -No focal consolidation on CXR to suggest PNA, will need a non-emergent CT for follow up on left lung nodule -Will obtain full respiratory biofire -No signs of acute CHF on exam or imaging -Will try a duoneb and order prn antitussive for now, continue to monitor (6) Weight loss: Plan: -Patient's reports that the patient has unintentionally lost approximately 30 lbs since last February -Appetite has been good, no reported changes in bowel habits, neurologic symptoms, urinary symptoms -Has had the non-productive cough with left pulmonary nodule on CXR -Will need to ensure he has outpatient Chest CT scheduled prior to DC with close PCP FU (7) HTN (hypertension): Plan: -Stable -Continue amlodipine -Hold losartan-HCTZ for now with hypokalemia (8) Hyperlipemia: Plan: -Continue simvastatin (9) Cellulitis: (10) Abnormal CXR: Admission and Anticipated Discharge Date Admission Date: October 19, 2022 Subjective Patient reports no new symptoms. Review of Systems Review of Systems: All systems reviewed & are unremarkable except as noted in HPI & below Physical Exam Physical Exam: General: In no acute distress, older stated age, chronically ill appearing but non-toxic HEENT: Normocephalic, atraumatic Chest/Pulm: No respiratory distress, symmetrical chest expansion, lungs appear clearer Cardiac: RRR, no murmurs noted Abdomen: normoactive bowel sounds, soft, non-tender to palpation throughout Extremities: Radial, dorsalis pedis, and posterior tibial pulses are intact and symmetrical, no edema noted in the BL LE's Neuro: Alert and oriented to person, place, month, year, and president, no focal defects Psych: No acute distress, calm and cooperative during the exam Results & Data Results & Data Vital Signs (Past 12 Hours) Vital Signs Temp Pulse Pulse Pulse Resp BP BP 10/21/22 22:06 37 C 82 16 163/90 H 10/21/22 19:47 36.7 C 84 16 169/94 H 10/21/22 17:10 36.7 C 77 20 156/94 H 10/21/22 15:10 36.4 C L 72 18 167/92 H 10/21/22 14:43 36.4 C L 67 20 158/91 H 10/21/22 16:04 36.7 C 87 20 162/94 H 10/21/22 14:09 36.9 C 68 20 159/91 H 10/21/22 13:45 61 12 145/90 H 10/21/22 13:30 36.3 C L 70 16 133/95 10/21/22 13:20 76 16 144/93 H 10/21/22 13:14 36.8 C 83 17 133/88 10/21/22 11:47 36.8 C 69 69 18 169/107 H Pulse Ox O2 Del Method O2 Flow Rate 10/21/22 22:06 98 Room Air 10/21/22 19:47 98 Room Air 10/21/22 17:10 96 Room Air 10/21/22 15:10 98 Room Air 10/21/22 14:43 96 Room Air 10/21/22 16:04 99 Room Air 10/21/22 14:09 97 Room Air 10/21/22 13:45 97 Room Air 10/21/22 13:30 98 Room Air 10/21/22 13:20 99 Oxymask 9 10/21/22 13:14 98 Oxymask 9 10/21/22 11:47 99 Room Air PG Care Time/CCT Total # of Minutes Spent Total Time Spent with Patient: Total time spent is greater than 50% in coordination of care (as documented) at patient's floor/unit and/or counseling patient: Coding Level of Care Code 34964 SUB INP/OBS CARE 2/35MIN Diagnoses Diabetic foot infection E11.628; L08.9 Osteomyelitis of right foot M86.9 Hypokalemia E87.6 DM II (diabetes mellitus, type II), controlled E11.9 Cough R05.9 Weight loss R63.4 HTN (hypertension) I10 Hyperlipemia E78.5 Cellulitis L03.90 Abnormal CXR R93.89
[2022-10-22] MEDS: CEFEPIME 2,000 MG in SYRINGE 0 ML IV SCH ×3 (05:08→21:18)
[2022-10-22 07:53] LABS: Basophils # (auto) 0.05 K/uL (0-0.2); Basophils % (auto) 0.5 %; Eosinophils # (auto) 0.15 K/uL (0-0.50); Eosinophils % (auto) 1.5 %; Hemoglobin 13.6 g/dl (14.0-18.0); Immature Granulocytes # (auto) 0.04 K/uL (0.01-0.20); Immature Granulocytes % (auto) 0.4 %; Lymphocytes # (auto) 1.29 K/uL (1.2-3.4); Lymphocytes % (auto) 13.2 %; Mean Corpuscular Hemoglobin 29.3 pg (25.0-34.0); Mean Corpuscular Hgb Conc 35.8 g/dL (32.0-36.0); Mean Corpuscular Volume 81.9 fL (80.0-100.0); Mean Platelet Volume 10.1 fL (9.4-12.4); Monocytes % (auto) 9.2 %; Neutrophils # (auto) 7.34 K/uL (1.40-6.50); Neutrophils % (auto) 75.2 %; Platelet Count 407 K/uL (130-400); RDW Coefficient of Variation 12.6 % (11.5-14.5); RDW Standard Deviation 37.8 fL (36.4-46.3); Red Blood Count 4.64 M/uL (4.70-6.10); White Blood Count 9.77 K/ul (4.8-10.8)
[2022-10-22 08:12] LABS: Albumin Level 3.5 gm/dl (3.4-5.0); BUN Creatinine Ratio 19.6 (10-20); Bilirubin,Total 0.6 mg/dl (0.2-1.0); C Reactive Protein 4.64 mg/dl (0-0.5); Calcium 8.6 mg/dl (8.6-10.3); Creatinine Clr Calc Pharmacy 95.1 ml/min; Est GFR (African American) 114.4 ml/min; Est GFR (Non-African American) 98.7 ml/min; Globulin 3.5 gm/dl (2.5-4.0); Potassium 3.9 mmol/L (3.5-5.1)
[2022-10-22] MEDS: LANTUS PER UNIT CHARGE SQ SCH ×2 (08:53→21:16)
[2022-10-22] MEDS: INSULIN ASPART PER UNIT CHARGE SC SCH ×4 (08:53→21:15)
[2022-10-22] MEDS: ASPIRIN 81 MG ECTAB PO SCH (08:54)
[2022-10-22] MEDS: amLODIPine BESYLATE 5 MG TAB PO SCH (08:54)
[2022-10-22] MEDS: guaiFENesin SUGAR FREE 200 MG/10 ML UDC PO PRN (08:55)
[2022-10-22] MEDS: ACETAMINOPHEN 325 MG TAB PO PRN (09:00)
[2022-10-22] MEDS: VANCOMYCIN HCL 1,250 MG in SODIUM CHLORIDE 0.9% 250 ML IV SCH ×2 (10:00→21:18)
--- NOTE | 2022-10-22 17:15 | Orthopedic Progress Note ---
Date of Service October 22, 2022 Assessment & Plan (1) Osteomyelitis of right foot: Plan: Nursing to perform dressing change in a.m. Continue use of postoperative shoe with primary heel weightbearing only. Continue IV antibiotics per medical team. Ice and elevate. Consider ASA 81 mg 1 p.o. daily x4 weeks for DVT prophylaxis if approved by medicine team. (2) Diabetic foot infection: (3) Cellulitis: Admission and Anticipated Discharge Date Admission Date: October 19, 2022 Subjective Patient feeling improved. Minimal pain in the foot. No fevers and chills. Blood sugar improved. Physical Exam Physical Exam: Patient sitting at bedside chair with foot elevated. No acute distress. Dressing clean and dry. No strikethrough evident. Capillary refill less than 2 seconds remaining toes. No proximal edema or erythema. No calf tenderness. Negative Homans test. Results & Data Vital Signs (Past 12 Hours) Vital Signs Temp Pulse Resp BP Pulse Ox O2 Del Method 10/22/22 15:28 36.6 C 91 H 18 176/105 H 96 Room Air 10/22/22 09:07 Room Air 10/22/22 07:47 36.7 C 72 18 176/95 H 97 Room Air
[2022-10-22] MEDS: SIMVASTATIN 10 MG TAB PO SCH (20:10)
--- NOTE | 2022-10-22 22:46 | Hospitalist Progress Note ---
Date of Service October 22, 2022 Assessment & Plan (1) Diabetic foot infection: Plan: -Admit to med/surge -Currently stable -Initially noticed discoloration of his right great toe approximately 3 weeks ago, noticed pain, erythema, and swelling yesterday -XRay of the right foot at [facility] concerning for OM so transferred here for further evaluation and treatment -Stable leukocytosis today at 11 with left shift of 9, ESR of 34 with CRP of -Started on Vancomycin and Zosyn at [facility], due to continued leukocytosis and elevated inflammatory makes will continue on Vancomycin and Cefepime for now -Orthopedics consulted, they will see tomorrow, requesting MRI w/con of the Right foot, ordered -Will obtain arterial doppler with CRISTY of the RLE for further evaluation -Ernest control with Tylenol prn mild pain and 1 mg IV morphine q4h prn pain 5+ -DM II for now, will make NPO at midnight in case of OR tomorrow -BL SCD's for DVT PPX for now, will see if Ortho would want chemical PPX to be held at this time -AM CBC, CMP, Mag, PT/INR On 10/20 will be NPO after midnight, plan for amputation of infected tissue on 10/21 On 10/21 Patient tolerated the procedure, patient does not appear to be septic 10/22 Continue IV antibiotics throughout 10/23. trend cbc, glucos, Sed rate and CRP. Plan to discharge home on thursday or thursday. (2) Osteomyelitis of right foot: Plan: possible Gas gangrene R toe -Reported by ED staff at [facility] per their review of right foot xray -Will obtain MRI of the right foot w/con for further evaluation -ABX and management per diabetic foot infection (3) Hypokalemia: Plan: -Noted to be 3.2 on admission labs today -T-wave flattening noted on ECG but otherwise WNL -Likely due to his diuretic use -Will give 40 meq PO KCL q2h x 2 doses now -Hold diuretic for now -Will obtain mag level (4) DM II (diabetes mellitus, type II), controlled: Plan: -Hold metformin -Monitor BSG ACHS, goal is 110-140 -5 units lantus BID, CF 50, CR 15 for now -DM II diet -Adjust regimen as needed (5) Cough: Plan: -Patient has had a non-productive cough for the past month -No focal consolidation on CXR to suggest PNA, will need a non-emergent CT for follow up on left lung nodule -Will obtain full respiratory biofire -No signs of acute CHF on exam or imaging -Will try a duoneb and order prn antitussive for now, continue to monitor (6) Weight loss: Plan: severe malnutrition -Patient's reports that the patient has unintentionally lost approximately 30 lbs since last February -Appetite has been good, no reported changes in bowel habits, neurologic symptoms, urinary symptoms -Has had the non-productive cough with left pulmonary nodule on CXR -Large irregular lung nodule noted on chest CT. will need repeat in 1 month. -Will need to ensure he has outpatient Chest CT scheduled prior to DC with close PCP FU reached out to lung nodule coordinator, will check in 1 month if patient followed through with chest ct (7) HTN (hypertension): Plan: -Stable -Continue amlodipine -Hold losartan-HCTZ for now with hypokalemia (8) Hyperlipemia: Plan: -Continue simvastatin (9) Cellulitis: (10) Abnormal CXR: Admission and Anticipated Discharge Date Admission Date: October 19, 2022 Subjective Patient reports no new symptoms. Review of Systems Review of Systems: All systems reviewed & are unremarkable except as noted in HPI & below Physical Exam Physical Exam: General: In no acute distress, older stated age, chronically ill appearing but non-toxic HEENT: Normocephalic, atraumatic Chest/Pulm: No respiratory distress, symmetrical chest expansion, lungs appear clearer Cardiac: RRR, no murmurs noted Abdomen: normoactive bowel sounds, soft, non-tender to palpation throughout Extremities: Radial, dorsalis pedis, and posterior tibial pulses are intact and symmetrical, no edema noted in the BL LE's Neuro: Alert and oriented to person, place, month, year, and president, no focal defects Psych: No acute distress, calm and cooperative during the exam Results & Data Results & Data Vital Signs (Past 12 Hours) Vital Signs Temp Pulse Resp BP BP Pulse Ox O2 Del Method 10/22/22 19:20 Room Air 10/22/22 21:10 36.6 C 76 20 166/92 H 99 Room Air 10/22/22 15:28 36.6 C 91 H 18 176/105 H 96 Room Air PG Care Time/CCT Total # of Minutes Spent Total Time Spent with Patient: Total time spent is greater than 50% in coordination of care (as documented) at patient's floor/unit and/or counseling patient: Coding Level of Care Code 81779 SUB INP/OBS CARE 2/35MIN Diagnoses Diabetic foot infection E11.628; L08.9 Osteomyelitis of right foot M86.9 Hypokalemia E87.6 DM II (diabetes mellitus, type II), controlled E11.9 Cough R05.9 Weight loss R63.4 HTN (hypertension) I10 Hyperlipemia E78.5 Cellulitis L03.90 Abnormal CXR R93.89
[2022-10-23] MEDS: CEFEPIME 2,000 MG in SYRINGE 0 ML IV SCH (05:07)
[2022-10-23 06:01] LABS: Hematocrit (blood only) 38.2 % (42.0-52.0); Hemoglobin 13.4 g/dl (14.0-18.0); Mean Corpuscular Hemoglobin 29.3 pg (25.0-34.0); Mean Corpuscular Hgb Conc 35.1 g/dL (32.0-36.0); Mean Corpuscular Volume 83.4 fL (80.0-100.0); Platelet Count 403 K/uL (130-400); RDW Coefficient of Variation 12.4 % (11.5-14.5); RDW Standard Deviation 37.8 fL (36.4-46.3); Red Blood Count 4.58 M/uL (4.70-6.10); White Blood Count 9.41 K/ul (4.8-10.8)
[2022-10-23 06:14] LABS: BUN Creatinine Ratio 18.2 (10-20); C Reactive Protein 8.07 mg/dl (0-0.5); Calcium 8.6 mg/dl (8.6-10.3); Creatinine Clr Calc Pharmacy 102.4 ml/min; Est GFR (African American) 118.6 ml/min; Est GFR (Non-African American) 102.3 ml/min; Potassium 3.6 mmol/L (3.5-5.1)
[2022-10-23] MEDS: amLODIPine BESYLATE 5 MG TAB PO SCH (09:02)
[2022-10-23] MEDS: ASPIRIN 81 MG ECTAB PO SCH (09:05)
[2022-10-23] MEDS: LANTUS PER UNIT CHARGE SQ SCH (09:06)
[2022-10-23] MEDS: INSULIN ASPART PER UNIT CHARGE SC SCH ×2 (09:07→13:06)
--- NOTE | 2022-10-23 09:37 | Hospitalist Progress Note ---
Date of Service October 23, 2022 Assessment & Plan (1) Diabetic foot infection: Plan: -3 week prehospital change and progression -XRay of the right foot at [facility] concerning for OM so transferred here for further evaluation and treatment possible Gas gangrene R toe-Started on Vancomycin and Zosyn at [facility], continued on Vancomycin and Cefepime -Orthopedics consult; MRI w/con of the Right foot Moderate marrow edema of the first distal phalanx without osseous erosion suggestive of reactive osteitis versus early osteomyelitis. - arterial doppler with no hemodynamically significant stenosis and normal CRISTY 10/21, taken to OR by Dr Preston for Gr toe amputation (2) DM II (diabetes mellitus, type II), controlled: Plan: -Hold metformin -Monitor BSG ACHS, goal is 110-140 -5 units lantus BID, CF 50, CR 15 for now -DM II diet -Adjust regimen as needed (3) Cough: Plan: -Patient has had a non-productive cough for the past month, CT has 2.3 cm nodule LLL vs infectious etiol Biofire is negative severe malnutrition, unintentional weight loss -Patient's reports that the patient has unintentionally lost approximately 30 lbs since last February -Appetite has been good, no reported changes in bowel habits, -Will need to ensure he has outpatient Chest CT scheduled prior to DC with close PCP Fu reached out to lung nodule coordinator, will check in 1 month if patient followed through with chest ct -will need a non-emergent CT for follow up on left lung nodule - (4) HTN (hypertension): Plan: -Stable -Continue amlodipine -Hold losartan-HCTZ for now with hypokalemia (5) Hypokalemia: Plan: -Noted to be 3.2 on admission labs today -T-wave flattening noted on ECG but otherwise WNL replete Admission and Anticipated Discharge Date Admission Date: October 19, 2022 Results & Data Results & Data Vital Signs (Past 12 Hours) Vital Signs Temp Pulse Pulse Resp BP BP Pulse Ox 10/23/22 09:06 92 H 160/91 H 10/23/22 07:57 10/23/22 07:39 98.1 F 83 18 164/100 H 98 O2 Del Method 10/23/22 09:06 10/23/22 07:57 Room Air 10/23/22 07:39 Room Air PG Care Time/CCT Total # of Minutes Spent Total Time Spent with Patient: Total time spent is greater than 50% in coordination of care (as documented) at patient's floor/unit and/or counseling patient: Coding Diagnoses Diabetic foot infection E11.628; L08.9 DM II (diabetes mellitus, type II), controlled E11.9 Cough R05.9 HTN (hypertension) I10 Hypokalemia E87.6
[2022-10-23] MEDS: VANCOMYCIN HCL 1,250 MG in SODIUM CHLORIDE 0.9% 250 ML IV SCH (10:31)
--- NOTE | 2022-10-23 13:30 | Pharmacy Report ---
Pharmacy PK ABX Note - Date of Service October 23, 2022 - Assessment and Plan Assessment 10/23: * Plan to continue IV antibiotic therapy through today and stop tomorrow, 48 hours post amputation. * Level today predicts therapeutic AUc/SANDIE will continue same dose thorugh today. 10/20 * Pt remains on vancomycin and cefepime for R great toe infection. * MRI with possible early osteomyelitis. Pt is scheduled for surgical amputation today. * Per ortho, rec continue IV abx [id number] post-op with transition to PO abx at discharge. * Vanc level obtained this morning. While not yet at steady-state, level was lower than desired for indication. Dosing re-timed as modified "load" to get vanc level into goal AUC range more quickly. 10/19 * 46 year old M receiving cefepime/vancomycin for treatment of diabetic foot ulcer (r/o osteomyelitis). Pertinent microbiologic data includes: blood cultures pending. Foot MRI and Ortho evaluation pending. * Day # 1/? of antimicrobial therapy. Plan Vancomycin * Loading dose: 1250 mg IV at 0900 (given in [facility] ER) * Maintenance dose: continue 1250 mg IV every 12 hours * Regimen is predicted to achieve target AUC/SANDIE 500-600 * No further levels have been ordered at this time. Pharmacy will continue to follow and will adjust dose/frequency as necessary. Thank you. Pharmacy has transitioned to AUC monitoring for vancomycin. AUC/SANDIE is the preferred PK/PD target and is associated with decreased risk of nephrotoxicity compared to traditional trough targets.
--- NOTE | 2022-10-23 16:06 | Discharge Summary ---
Date of Service October 23, 2022 Admission HPI Per Admitting Provider Constantin is a 46 year old male with a PMH significant for HTN, DMII with diabetic neuropathy, hyperlipidemia, and current smokeless tobacco use who was transferred to [facility] from [facility] due to concerns for OM of the great right toe and diabetic right foot wound. Per transfer documentation, the patient arrived to the [facility] ED yesterday after developing pain, swelling, and erythema of the great right toe. The patient remained stable. Labs were significant for a leukocytosis of 16 with left shift of 13, ESR of 21, and potassium of 3.2. Xray of the right foot was concerning for OM of the great rig ht toe. The patient was started on Vancomycin and Zosyn, with his last dose of vancomyin given at 0900 today and last dose of zosyn given at 2pm yesterday. At the time of the exam the patient was lying in bed in no acute distress with his sitting bedside. He states that he started to develop pain, erythema, and swelling of the right great toe yesterday. When asked further, he states that he first noticed black discoloration of the right great toe approximately 3 weeks ago but did not think it was related to infection at that time. He has significant peripheral neuropathy of the feet from DM II and does not examine his feet regularly. His pain is currently a 3/10 and he denies recent fever or chills. His is concerned because he has had an approximately 30 lbs of unintentional weight loss since last February, he has not been trying to lose weight and has been eating frequently. Her has been using smokeless tobacco for 20+ years and had approximately 17 years of secondhand smoke exposure while growing up as both his parents smoke. He has had a non- productive cough for the past month, he denies previous hx of lung disease or CHF. He denies recent chest pain, SOB, abd pain, nausea, vomiting, diarrhea, changes in bowel habit or changes in stool calibers, melena, bloody BM's, dysuria, hematuria, LE swelling and recent trauma. He did have surgery shortly after due to pyloric stenosis and abdominal hernias. He states that he was born approximately 2 months prematurely. I explained that he will need to be evaluated by Orthopedics, who will need to take him to the OR during this admission for surgery. He is a full code and wishes for his to make medical decisions for him if he could not make them himself. Please refer to Dr. Monreal's attestation for any changes to the treatment plan Principal Diagnosis Gangrene right great toe status post amputation Abnormal CT chest with left fissure indeterminate mass Discharge Exam Patient wake alert and appropriate lung exam is clear heart is regular he has a boot and dressing on his foot I asked the nurse to redress before discharge Discharge Data Allergies Allergy/AdvReac Type Severity Reaction Status Date / Time No Known Allergies Allergy Unverified 10/19/22 13:47 Consultations 10/19/22 13:22 Consult Orthopedic Surgery Routine Procedures Performed Operation Date: 10/21/22 11:25 Actual Procedures p Right Great Toe Amputation(Right) - Kan Preston DO Ordered Studies 10/19/22 14:20 MRI Foot [MR foot RT wo/w con] Urgent 10/20/22 US arterial duplex LE RT Routine 10/20/22 07:00 CT chest diagnostic w con Routine Hospital Course (1) Diabetic foot infection: -3 week prehospital change and progression -XRay of the right foot at [facility] concerning for OM so transferred here for further evaluation and treatment possible Gas gangrene R toe-Started on Vancomycin and Zosyn at [facility], continued on Vancomycin and Cefepime -Orthopedics consult; MRI w/con of the Right foot Moderate marrow edema of the first distal phalanx without osseous erosion suggestive of reactive osteitis versus early osteomyelitis. - arterial doppler with no hemodynamically significant stenosis and normal CRISTY 10/21, taken to OR by Dr Preston for Gr toe amputation recommend aspirin 81 4 times a day for 6 weeks for DVT prevention (2) DM II (diabetes mellitus, type II), controlled: -Patient's A1c is in good control with metformin 500 twice daily however may need to come off informatively get if A1c continues to be low (3) Cough: -Patient has had a non-productive cough for the past month, CT has 2.3 cm nodule LLL vs infectious etiol Biofire is negative severe malnutrition, unintentional weight loss -Patient's reports that the patient has unintentionally lost approximately 30 lbs since last February -Appetite has been good, no reported changes in bowel habits, -Will need to ensure he has outpatient Chest CT scheduled prior to DC with close PCP Fu reached out to lung nodule coordinator, will check in 1 month if patient followed through with chest ct -will need a non-emergent CT for follow up on left lung nodule communicate this need to [employer] in office - (4) HTN (hypertension): -Stable -Continue amlodipine -Resume losartan at discharge (5) Hypokalemia: -Noted to be 3.2 on admission labs today -T-wave flattening noted on ECG but otherwise WNL replete Total Time Total Time Spent Total Time Spent (In Minutes): It required greater than 30 minutes to prepare this patient for discharge Discharge Plan Discharge Items Patient Disposition: Home - Self-Care Reason For Visit: OSTEOMYELITIS, DIABETIC ULCER Discharge Diagnosis: right gr toe osteomyelitis, s/p amputation for gangrene lung nodule in need of follow up Activity: Resume your previous activity Non-emergency contact: Primary Care Provider and Surgeon Call non-emergency contact if: your symptoms worsen Follow-up/Referrals: Kan Preston DO [Surgeon] - (LEFT A MESSAGE AT THE OFFICE TO HAVE OFFICE STAFF CALL PATIENT FOR A HOSPITAL FOLLOW UP.) Vern Driscoll MD [Primary Care Provider] - 11/03/22 3:25 pm ([address] [place] [id number] Cox ) Diet: Carb Consistent or DM2 Addtl Attending Provider Instructions: follow up with primary care to arrange an outpt CT chest for follow up Follow up with Dr Haque office , keep wound clean and dry, elevate leg when sitting, avoid weight bearing on the front of your foot take aspirin 81 mg 4 x's a day to prevent blood clots for 6 weeks Pending Studies at Discharge: No Stand-Alone Forms: My Apprema, Work/School Release, Smoking Cessation Medications and DC Order Prescriptions: New acetaminophen [Tylenol Extra Strength] 500 mg tablet 500 mg PO QID PRN (Reason: fever) Qty: 30 0RF Continued amlodipine 5 mg tablet 5 mg PO DAILY metformin 500 mg tablet 500 mg PO BID simvastatin 10 mg tablet 10 mg PO HS losartan-hydrochlorothiazide 100-25 mg tablet 1 tab PO DAILY aspirin 81 mg PO DAILY Discharge Orders: Discharge Order (Routine); Ordered 10/23/22 Ordered By: Ho Llamas/Other Patient Handouts: Foot Surg Protect Foot Post Op, Diabetes Inspect Feet Admission Data Admit Date/Time: 10/19/22 12:26 Attending Provider: Ho Samuels Admit Provider: Richmond Monreal Primary Care Provider: Vern Driscoll Other Providers: Kan Preston Other Interventions: Discharge Summary Assessment (RN) Last Done: 10/23/22 13:14 Coding Level of Care Code 40862 INP/OBS DISCH >30 MIN Diagnoses Diabetic foot infection E11.628; L08.9 DM II (diabetes mellitus, type II), controlled E11.9 Cough R05.9 HTN (hypertension) I10 Hypokalemia E87.6
== END 2022-10-23 14:23 | disposition home or self-care (01) | DRG 616 ==
LOC: SUPCPDRO 12:26 → 3E 12:26 → SUATTDRO 12:26

== ENCOUNTER 2022-11-02 17:50 | Inpatient (IN) ==
--- NOTE | 2022-11-02 18:22 | Emergency Department Note ---
History of Present Illness General Chief complaint: Toe Injury/Pain Stated complaint: RIGHT BIG TOE PAIN Time Seen by Provider: 11/02/22 17:57 History of Present Illness Maximum Pain Intensity: 4 This is a 46-year-old male that presents to the emergency department via private vehicle accompanied by girlfriend with complaints of right toe pain". The patient notes recent partial amputation of his right first toe performed on 10/21/2022 here at [facility] by Dr. Preston. Patient notes that postoperatively he has not had any follow-up thus far. He notes he has been doi ng well but over the past few days notes increasing pain and points to the right first MTP joint as a location of discomfort. He and girlfriend also note that there has been some yellowish-green discharge over the past day or so now. No fevers. Patient not currently on antibiotics. Home Medications Medication Instructions Recorded Confirmed Type amlodipine 5 mg tablet 5 mg PO DAILY 10/19/22 11/02/22 History losartan 100 1 tab PO DAILY 10/19/22 11/02/22 History mg-hydrochlorothiazide 25 mg tablet metformin 500 mg tablet 500 mg PO BID 10/19/22 11/02/22 History simvastatin 10 mg tablet 10 mg PO HS 10/19/22 11/02/22 History acetaminophen 500 mg tablet 500 mg PO QID PRN fever #30 tabs 10/23/22 11/02/22 Rx (Tylenol Extra Strength) naproxen sodium 220 mg tablet 220 mg PO BID 11/02/22 11/02/22 History (Aleve) Allergies Allergy/AdvReac Type Severity Reaction Status Date / Time No Known Allergies Allergy Unverified 10/19/22 13:47 Past Med/Surg History Medical History DM II (diabetes mellitus, type II), controlled HTN (hypertension) Hyperlipemia Surgical History H/O toe surgery Social History Smoking Status: Never smoker Do You Dip or Chew Tobacco: Yes; Hx Alcohol Use: Yes Hx Substance Use: No Preferred Language: Yemeni Communication Ability: Effective 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 Required: No Beliefs That Will Affect Care: None Current Living Situation: Family and Significant Other Current Living Situation Comment: patient living with significant other and patient's mother Feels Safe at Home: Yes Assistive Devices: Walker Review of Systems A total of 10 systems reviewed and were otherwise negative Physical Exam Vital Signs Vital Signs - 24 hr 11/02/22 17:53 11/02/22 18:28 11/02/22 20:15 Temperature 37.1 C 36.9 C Temperature Source Temporal Artery Scan Oral Pulse Rate 102 H Pulse Rate [Left Finger] 102 H 83 Pulse Rhythm [Left Finger] Regular Pulse Strength [Left Finger] Normal Respiratory Rate 20 20 18 Respiratory Effort / Characteristics Non-Labored Non-Labored Spontaneous Respiratory Depth Normal Normal Respiratory Pattern Regular Blood Pressure 192/108 H Blood Pressure [Left Arm] 179/112 H 166/103 H Blood Pressure Mean 136 Blood Pressure Mean [Left Arm] 134 124 Blood Pressure Position [Left Arm] Lying Pulse Oximetry 99 96 97 Oxygen Delivery Method Room Air Room Air Sepsis Recent Fever Within 48 Hours No Sepsis New/Unexplained Change in Mental Status N/A Sepsis Action Taken by Nursing No Action Required VITAL SIGNS - Vital signs and nursing notes were reviewed. Hypertensive, otherw ise stable and afebrile. GENERAL -46-year-old male appearing his stated age who is in no acute distress. Communicates well with provider and answers questions appropriately. SKIN -the patient has a hard soled/postop shoe to the right foot. This was removed and the bandage underneath is a dark green/brown stained color. The integument is an erythematous hue with several scabbed areas and yellow flake appearance. There is some bleeding to the lateral wound edge. Sutures are in place. No dehiscence at the present time but the wound edge is still soft and appears to not be adhered. No lymphangitic streaking LUNGS -clear to auscultation. CARDIAC -regular rate and rhythm. EXTREMITIES - No clubbing or peripheral cyanosis. Skin as above. Evidence of recent partial amputation to the right first toe. Sutures overlying the distal aspect of the toe in the horizontal plane. There is minimal active drainage from the toe with some mild bleeding. The gauze dressing that was overlying it as above was saturated with a dark green/brown stained color. Mild odor present. +5/5 strength noted in UE/LE bilaterally. NEUROLOGIC - Cranial nerves II through XII grossly intact. PSYCH - A&O, and cooperates fully with examiner. Pt is very pleasant and interacts well with examiner. Course Administered Medications Discontinued Medications Cefepime HCl (Maxipime) 2,000 mg in 20 mls @ 5 mls/min IV NOW STA; Protocol Stop: 11/02/22 19:47 Last Admin: 11/02/22 20:16 Dose: 5 mls/min Documented By: MAINFRAME PROGRAMMER Medical Decision Making Laboratory Data 11/02/22 18:26 11/02/22 18:26 Lab Results 11/02/22 11/02/22 11/02/22 Range/Units 18:26 18:26 19:54 WBC 6.11 (4.8-10.8) K/ul RBC 4.55 L (4.70-6.10) M/uL Hgb 13.2 L (14.0-18.0) g/dl Hct 39.0 L (42.0-52.0) % MCV 85.7 (80.0-100.0) fL MCH 29.0 (25.0-34.0) pg MCHC 33.8 (32.0-36.0) g/dL RDW Std Deviation 41.1 (36.4-46.3) fL RDW Coeff of Arcelia 13.2 (11.5-14.5) % Plt Count 360 (130-400) K/uL MPV 10.3 (9.4-12.4) fL Immature Gran % (Auto) 0.3 % Neut % (Auto) 61.0 % Lymph % (Auto) 26.2 % [place] % (Auto) 9.7 % Eos % (Auto) 1.8 % Baso % (Auto) 1.0 % Neut # (Auto) 3.73 (1.40-6.50) K/uL Lymph # (Auto) 1.60 (1.2-3.4) K/uL [place] # (Auto) 0.59 (0.11-0.59) K/uL Eos # (Auto) 0.11 (0-0.50) K/uL Baso # (Auto) 0.06 (0-0.2) K/uL Immature Gran # (Auto) 0.02 (0.01-0.20) K/uL Sodium 139 (136-145) mmol/L Potassium 3.9 (3.5-5.1) mmol/L Chloride 106 (98-107) mmol/L Carbon Dioxide 27 (21-32) mmol/L Anion Gap 6 (3-11) BUN 15 (6-23) mg/dl Creatinine 1.15 (0.6-1.4) mg/dl Est Cr Clr Drug Dosing 79.1 ml/min Est GFR ( Amer) 87.3 ml/min Est GFR (Non-Af Amer) 75.4 ml/min BUN/Creatinine Ratio 13.0 (10-20) Glucose 132 H (70-99(Fasting)) mg/dl Calcium 9.3 (8.6-10.3) mg/dl Total Bilirubin 0.3 (0.2-1.0) mg/dl AST 15 (13-39) U/L ALT 23 (7-52) U/L Alkaline Phosphatase 76 (34-104) U/L Total Protein 7.1 (6.0-8.3) gm/dl Albumin 3.8 (3.4-5.0) gm/dl Globulin 3.3 (2.5-4.0) gm/dl Albumin/Globulin Ratio 1.2 (0.9-2) SARS-CoV-2, RNA, NAAT NEGATIVE (NEGATIVE) Imaging Data Radiologist's Impression: Foot X-Ray 11/02/22 18:16 RIGHT FOOT 3 VIEWS CLINICAL HISTORY: First toe pain. FINDINGS: 3 views of the right foot are compared to study dated 10/18/2022. The skeletal structures are well-mineralized. There has been amputation of the first toe through the head of the first proximal phalanx. There is soft tissue swelling within the stump of the first toe. No acute fracture is seen. No bony erosion is identified. Minimal degenerative change is seen at the first meta tarsophalangeal joint and at the tarsometatarsal articulations. There are tiny dorsal and large plantar heel spurs. Atherosclerotic calcification is noted in the regional arteries. No soft tissue gas is identified. IMPRESSION: 1. No acute bony abnormality is identified. 2. There has been interval amputation of the first toe as above. 3. Soft tissue edema is seen in the stump of the first toe. Correlate clinically. Electronically signed by: Tobi Katz M.D. 11/02/2022 6:57 PM MDM Narrative Patient was seen and evaluated as above in room D03. Review was performed of triage nursing notes and vital signs. I did review pertinent previous visits and patient history. After obtaining a thorough history and physical examination the above work up was performed. Patient presents to us today with worsening pain in the outpatient setting now with drainage from his surgical wound. Patient is status post partial amputation of his right first toe. On examination there is a large amount of dried greenish/brown discharge on the dressing that was ad hered to the integument and dry. Options of care were discussed with the patient. X-ray was obtained. No acute bony abnormality is seen. Consent was obtained, utilizing sterile saline and sterile gauze I was able to gently remove the dressing that was adhered to the integument and dried to the integument. Care was taken so as to not create any disruption to the wound. Patient and girlfriend note that they have been applying antibiotic ointment from a packets to the toe. The right first digit is erythematous. No dehiscence of the wound. With the patient having new drainage from the toe that is a change compared to previous postoperative drainage in the setting of a somewhat macerated appearance of the tissue of the toe I did find it reasonable to discuss findings with the patient's surgeon, Dr. Preston. Unfortunately there is not enough drainage to culture at the present time. At this time we will proceed with inpatient management, IV antibiotics and the patient will be n.p.o. after midnight in the event that further surgical intervention is needed. Patient provided IV cefepime here. Case discussed with the hospitalist service. Patient amenable to plan of care. Please refer to further documentation regarding his stay. After the patient was evaluated hospitalist service I did redress the patient's wound. Sterile gauze was utilized followed by sterile gauze wrap. At this time we will use dry dressings noting the appearance of the wound pending evaluation tomorrow by his surgeon. In the evaluation and treatment of this patient the following differential diagnoses were entertained: Postoperative pain, fracture, infection, abscess, wound dehiscence, among others Impression & Plan Wound drainage, Pain in toe of right foot Discharge Plan Visit Data Chief Complaint: Toe Injury/Pain Stated Complaint: RIGHT BIG TOE PAIN ED Provider: Chirag Gar ED Midlevel Provider: Michael Hernandez Discharge Problem: Wound drainage, Pain in toe of right foot Patient Disposition: Admitted As Inpatient Condition: Good Forms Stand Alone Forms: My [facility] [employer] Prescriptions Prescriptions: No Action naproxen sodium [Aleve] 220 mg Tablet 220 mg PO BID amlodipine 5 mg tablet 5 mg PO DAILY metformin 500 mg tablet 500 mg PO BID simvastatin 10 mg tablet 10 mg PO HS losartan-hydrochlorothiazide 100-25 mg tablet 1 tab PO DAILY acetaminophen [Tylenol Extra Strength] 500 mg tablet 500 mg PO QID PRN (Reason: fever) Qty: 30 0RF Referrals Referrals: Vern Driscoll MD [Primary Care Provider] -
[2022-11-02 18:45] LABS: Basophils # (auto) 0.06 K/uL (0-0.2); Eosinophils # (auto) 0.11 K/uL (0-0.50); Eosinophils % (auto) 1.8 %; Hemoglobin 13.2 g/dl (14.0-18.0); Immature Granulocytes # (auto) 0.02 K/uL (0.01-0.20); Immature Granulocytes % (auto) 0.3 %; Lymphocytes % (auto) 26.2 %; Mean Corpuscular Hgb Conc 33.8 g/dL (32.0-36.0); Mean Corpuscular Volume 85.7 fL (80.0-100.0); Mean Platelet Volume 10.3 fL (9.4-12.4); Monocytes # (auto) 0.59 K/uL (0.11-0.59); Monocytes % (auto) 9.7 %; Neutrophils # (auto) 3.73 K/uL (1.40-6.50); Platelet Count 360 K/uL (130-400); RDW Coefficient of Variation 13.2 % (11.5-14.5); RDW Standard Deviation 41.1 fL (36.4-46.3); Red Blood Count 4.55 M/uL (4.70-6.10); White Blood Count 6.11 K/ul (4.8-10.8)
[2022-11-02 18:59] LABS: Alanine Aminotransferase 23 U/L (7-52); Albumin Globulin Ratio 1.2 (0.9-2); Albumin Level 3.8 gm/dl (3.4-5.0); Alkaline Phosphatase 76 U/L (34-104); Anion Gap 6 (3-11); Aspartate Aminotransferase 15 U/L (13-39); Bilirubin,Total 0.3 mg/dl (0.2-1.0); Blood Urea Nitrogen 15 mg/dl (6-23); Calcium 9.3 mg/dl (8.6-10.3); Carbon Dioxide 27 mmol/L (21-32); Chloride 106 mmol/L (98-107); Creatinine Clr Calc Pharmacy 79.1 ml/min; Est GFR (African American) 87.3 ml/min; Est GFR (Non-African American) 75.4 ml/min; Globulin 3.3 gm/dl (2.5-4.0); Glucose 132 mg/dl (70-99(Fasting)); Potassium 3.9 mmol/L (3.5-5.1); Sodium 139 mmol/L (136-145); Total Protein 7.1 gm/dl (6.0-8.3)
--- NOTE | 2022-11-02 18:59 | XRay Report ---
RIGHT FOOT 3 VIEWS CLINICAL HISTORY: First toe pain. FINDINGS: 3 views of the right foot are compared to study dated 10/18/2022. The skeletal structures are well-mineralized. There has been amputation of the first toe through the head of the first proximal phalanx. There is soft tissue swelling within the stump of the first toe. No acute fracture is seen. No bony erosion is identified. Minimal degenerative change is seen at the first metatarsophalangeal j oint and at the tarsometatarsal articulations. There are tiny dorsal and large plantar heel spurs. At herosclerotic calcification is noted in the regional arteries. No soft tissue gas is identified. IMPRESSION: 1. No acute bony abnormality is identified. 2. There has been interval amputation of the first toe as above. 3. Soft tissue edema is seen in the stump of the first toe. Correlate clinically. Electronically signed by: Tobi Katz M.D. 11/02/2022 6:57 PM
[2022-11-02] MEDS ORDERED: CEFEPIME 2,000 MG/20 ML VIAL IV STA (19:44)
--- NOTE | 2022-11-02 20:15 | History & Physical Report ---
Date of Service November 02, 2022 Assessment & Plan (1) Wound drainage: Plan: 46yo male with DM, HTN, HLP, recent amputation of the right great toe distal phalanx for osteomyelitis and debridement of diabetic ulcer performed by Dr. Preston on 10/21/22 returns with increase in purulent drainage from his surgical site as well as increased pain and swelling. He is afebrile, HD stable and non-toxic in appearance. Surgical site with possible infection. Imaging as above, no suggestion of osteomyelitis on x-ray. -Admit to medical -Wound care to right toe daily -Check CRP -Continue antibiotics - Cefepime -Tylenol and Oxy-IR as needed for pain -Will keep NPO after midnight in the event of OR debridement/intervention tomorrow -Orthopedic Surgery consultation appreciated (2) Hyperlipemia: Plan: Chronic. -Continue Simvastatin 10mg po qHS (3) HTN (hypertension): Plan: Chronic. Blood pressure elevated at 166/103 -Continue Losartan/HCTZ -Continue Amlodipine -Continue to monitor (4) DM II (diabetes mellitus, type II), controlled: Plan: Overall well controlled on Metformin. Last [id number]=3.7 on 10/20/22 -Hold metformin -ISS - goal blood sugar 110 - 140 F/E/N - Heplock. Electrolytes WNL. CC diet for now, NPO after midnight Ppx - REsume ASA 81mg po QID Code - Full Dispo -Admit to medical History of Present Illness Chief Complaint: right great toe pain Primary Care Provider: Vern Driscoll MD Constantin Dodson is a 46yo male with history of well controlled DM, HTN and HLP presenting with pain and drainage from his right great toe. Patient was recently seen at [facility] from 10/19/22 - 10/23/22 with concern for osteomyelitis of the right great toe. He had an MRI which revealed reactive osteitis vs osteomyelitis. He had an arterial doppler which was normal. Patient was treated with IV antibiotics - Vancomycin/Zosyn then Vancomycin/Cefepime. He was taken to the OR on 10/21/[address] Preston for amputation fo the great toe. The surgery went well and patient was discharged home on 10/23/22. He has been changing the dressing every other day and notes a large amount of serosanguinous drainage present on the bandages. Over the last several days he has had a sharp, shooting pain in the dorsal portion of the surgical stump and in the joint as well as some tingling in the toe. He noted an increased amount of drainage today and the drainage was more cloudy and green in color. Patient has been taking his ASA four times daily until he ran out 3 days ago. He denies fever, chills, cough, CP, SOB. Denies abdominal pain, nausea, vomiting or diarrhea. No additional complaints at this time. In the ER he is afebrile, mildly tachycardic at 102bpm, NAD Allergies Allergy/AdvReac Type Severity Reaction Status Date / Time No Known Allergies Allergy Unverified 10/19/22 13:47 Home Medications Medication Instructions Recorded Confirmed Type amlodipine 5 mg tablet 5 mg PO DAILY 10/19/22 11/02/22 History losartan 100 1 tab PO DAILY 10/19/22 11/02/22 History mg-hydrochlorothiazide 25 mg tablet metformin 500 mg tablet 500 mg PO BID 10/19/22 11/02/22 History simvastatin 10 mg tablet 10 mg PO HS 10/19/22 11/02/22 History acetaminophen 500 mg tablet 500 mg PO QID PRN fever #30 tabs 10/23/22 11/02/22 Rx (Tylenol Extra Strength) naproxen sodium 220 mg tablet 220 mg PO BID 11/02/22 11/02/22 History (Aleve) Past Med/Surg History Medical History DM II (diabetes mellitus, type II), controlled HTN (hypertension) Hyperlipemia Surgical History H/O toe surgery Social History Smoking Status: Never smoker Do You Dip or Chew Tobacco: Yes; Hx Alcohol Use: Yes Hx Substance Use: No Preferred Language: Armenian Communication Ability: Effective 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 Beliefs That Will Affect Care: None Current Living Situation: Family and Significant Other Current Living Situation Comment: patient living with significant other and patient's mother Feels Safe at Home: Yes Assistive Devices: Walker Review of Systems Review of Systems: All systems reviewed & are unremarkable except as noted in HPI & below Physical Exam Physical Exam: General: patient resting comfortably, NAD, non-toxic in appearance, AA&O x 4 Skin: warm, dry, intact, no rashes or lesions HEENT: NC/AT, PERRL, EOMI, anicteric sclera, conjunctiva without injection, external ear normal to inspection and nontender, nares patent, moist mucus membranes, dentition intact, no oropharyngeal lesions, neck supple, trachea midline, no LAD, no thyromegaly, no JVD Heart: +S1/S2, regular, several ectopic beats, no m/r/g Lungs: equal air entry bilaterally, no rales/rhonchi/wheezes Abd: +BS, soft, NT/ND, no masses/organomegaly/ascites Ext: warm, 2+ pulses in UE/LE bilaterally, no clubbing/cyanosis, right great toe with swelling, purulent drainage present on dressings, skin scaling, sutures in place. 2+ pulses. No evidence of progressive infection of the foot Neuro: nonfocal, patient AA&O x 4, speech intact, no facial droop, moving all extremities on command with equal strength 5/5 Results & Data Results & Data Vital Signs (Past 12 Hours) Vital Signs Temp Pulse Pulse Resp BP BP Pulse Ox 11/02/22 18:28 102 H 20 179/112 H 96 11/02/22 17:53 37.1 C 102 H 20 192/108 H 99 O2 Del Method 11/02/22 18:28 11/02/22 17:53 Room Air Laboratory Results Laboratory Results WBC 6.11 K/ul (4.8-10.8) 11/02/22 18: RBC 4.55 M/uL (4.70-6.10) L 11/02/22 18:26 Hgb 13.2 g/dl (14.0-18.0) L 11/02/22 18: Hct 39.0 % (42.0-52.0) L 11/02/22 18: MCV 85.7 fL (80.0-100.0) 11/02/22 18: MCH 29.0 pg (25.0-34.0) 11/02/22 18: MCHC 33.8 g/dL (32.0-36.0) 11/02/22 18: RDW Std Deviation 41.1 fL (36.4-46.3) 11/02/22 18: RDW Coeff of Arcelia 13.2 % (11.5-14.5) 11/02/22 Plt Count 360 K/uL (130-400) 11/02/22 18: MPV 10.3 fL (9.4-12.4) 11/02/22: Immature Gran % (Auto) 0.3 % 11/02/22: Neut % (Auto) 61.0 % 11/02/22 18: Lymph % (Auto) 26.2 % 11/02/22 18: [place] % (Auto) 9.7 % 11/02/22: Eos % (Auto) 1.8 % 11/02/22 Baso % (Auto) 1.0 % 11/02/22 Neut # (Auto) 3.73 K/uL (1.40-6.50) 11/02/22: Lymph # (Auto) 1.60 K/uL (1.2-3.4) 11/02/22 18: [place] # (Auto) 0.59 K/uL (0.11-0.59) 11/02/22: Eos # (Auto) 0.11 K/uL (0-0.50) 11/02/22 18: Baso # (Auto) 0.06 K/uL (0-0.2) 11/02/22: Immature Gran # (Auto) 0.02 K/uL (0.01-0.20) 11/02/22 18: Sodium 139 mmol/L (136-145) 11/02/22: Potassium 3.9 mmol/L (3.5-5.1) 11/02/22: Chloride 106 mmol/L (98-107) 11/02/22 Carbon Dioxide 27 mmol/L (21-32) 11/02/22 18: Anion Gap 6 (3-11) 11/02/22: BUN 15 mg/dl (6-23) 11/02/22: Creatinine 1.15 mg/dl (0.6-1.4) 11/02/22: Est Cr Clr Drug Dosing 79.1 ml/min 11/02/22 18:26 Est GFR ( Amer) 87.3 ml/min 11/02/22 18: Est GFR (Non-Af Amer) 75.4 ml/min 11/02/22 18:26 BUN/Creatinine Ratio 13.0 (10-20) 11/02/22 18:26 Glucose 132 mg/dl (70-99(Fasting)) H 11/02/22 18: Calcium 9.3 mg/dl (8.6-10.3) 11/02/22 18: Total Bilirubin 0.3 mg/dl (0.2-1.0) 11/02/22 18: AST 15 U/L (13-39) 11/02/22 18: ALT 23 U/L (7-52) 11/02/22 18: Alkaline Phosphatase 76 U/L (34-104) 11/02/22 18: Total Protein 7.1 gm/dl (6.0-8.3) 11/02/22 18: Albumin 3.8 gm/dl (3.4-5.0) 11/02/22 18: Globulin 3.3 gm/dl (2.5-4.0) 11/02/22 18: Albumin/Globulin Ratio 1.2 (0.9-2) 11/02/22 18:26 SARS-CoV-2, RNA, NAAT NEGATIVE (NEGATIVE) 11/02/22 19:54 Impressions Foot X-Ray 11/02/22 18:16 RIGHT FOOT 3 VIEWS CLINICAL HISTORY: First toe pain. FINDINGS: 3 views of the right foot are compared to study dated 10/18/2022. The skeletal structures are well-mineralized. There has been amputation of the first toe through the head of the first proximal phalanx. There is soft tissue swelling within the stump of the first toe. No acute fracture is seen. No bony erosion is identified. Minimal degenerative change is seen at the first metatarsophalangeal joint and at the tarsometatarsal articulations. There are tiny dorsal and large plantar heel spurs. Atherosclerotic calcification is noted in the regional arteries. No soft tissue gas is identified. IMPRESSION: 1. No acute bony abnormality is identified. 2. There has been interval amputation of the first toe as above. 3. Soft tissue edema is seen in the stump of the first toe. Correlate clinic ally. Electronically signed by: Tobi Katz M.D. 11/02/2022 6:57 PM PG Care Time/CCT Total # of Minutes Spent Total Time Spent with Patient: Total time spent is greater than 50% in coordination of care (as documented) at patient's floor/unit and/or counseling patient: Coding Level of Care Code 55454 INT INP/OBS CARE 2/55MIN Diagnoses Wound drainage L24.A9 Hyperlipemia E78.5 HTN (hypertension) I10 DM II (diabetes mellitus, type II), controlled E11.9
[2022-11-02] MEDS ORDERED: GLUCAGON FOR INJ 1 MG VIAL SQ PRN (21:43)
[2022-11-02] MEDS ORDERED: CARBOHYDRATES FOR HYPOGLYCEMIA PO PRN (21:43)
[2022-11-02] MEDS ORDERED: ONDANSETRON INJ 2 MG/ML 2 ML VIAL IV PRN (21:43)
[2022-11-02] MEDS ORDERED: oxyCODONE HCL IR 5 MG TAB (IMMEDIATE RELEASE) PO PRN (21:43)
[2022-11-02] MEDS ORDERED: ACETAMINOPHEN 500 MG TAB PO PRN (21:43)
[2022-11-02] MEDS ORDERED: DEXTROSE 50% 50 ML SYRINGE IV PRN (21:43)
[2022-11-02] MEDS ORDERED: GLUCOSE 40% GEL 15 GM TUBE PO PRN (21:43)
[2022-11-02] MEDS ORDERED: GLUCOSE 10 TAB/TUBE PO PRN (21:43)
[2022-11-02] MEDS: INSULIN ASPART PER UNIT CHARGE SC SCH (21:56)
[2022-11-02 22:28] LABS: C Reactive Protein < 0.50 mg/dl (0-0.5)
[2022-11-02] MEDS: CEFEPIME 2,000 MG in SYRINGE 0 ML IV SCH (22:28)
[2022-11-02] MEDS: SIMVASTATIN 10 MG TAB PO SCH (22:29)
--- NOTE | 2022-11-03 07:29 | Hospitalist Progress Note ---
Date of Service November 03, 2022 Assessment & Plan (1) Wound drainage: Plan: 46 y/o male with DM, HTN, HLP, recent amputation of the right great toe distal phalanx for osteomyelitis and debridement of diabetic ulcer performed by Dr. Preston on 10/21/22 returns with increase in purulent drainage from his surgical site as well as increased pain and swelling now on IV abx and awaiting surgical revision with Dr. Preston. #Right foot infection #Recent surgical removal of right great toe #Recent osteomyelitis He is afebrile, HD stable and non-toxic in appearance. Surgical site with possible infection. Imaging as above, no suggestion of osteomyelitis on x-ray. This does not r/o osteo. CRP WNL. No leukocytosis. Ortho consulted - appreciate recs. Plan to return to the OR. [] NPO [] wound care [] wound revision today [] abx - cefepime [] pain control - tylenol and oxy #HLD Chronic. Continue Simvastatin 10mg po qHS #HTN Chronic. Blood pressure elevated at 166/103. Continue home meds - Losartan/HCTZ, Amlodipine #Type II DM Overall well controlled on metformin. Last HgbA1C: 5.7 on 10/20/22. Hold metformin while inpatient. [] SSI while inpatient - BSG 110-140 FENGI - NPO, resume carb consistent diet after procedure DVT ppx - resume ASA 81mg po QID Code - Full Dispo - med/surg (2) Hyperlipemia: (3) HTN (hypertension): (4) DM II (diabetes mellitus, type II), controlled: Admission and Anticipated Discharge Date Admission Date: November 02, 2022 Supervising Physician Co-Signing Physician Notes I personally examined the patient and verified all bazan points of history and exam, discussed case, and agree with decision making with Dr Hsu Feeling okay postop. No new complaints. Vitals noted, in general he is awake and alert pleasant no distress. HEENT normocephalic atraumatic mucous membranes moist. Breathing unlabored no accessory muscle use good effort. Foot dressed. CBC, BMP, glucoses noted. Diabetic foot infection/osteomyelitis/cellulitisfurther amputation done today. Continue IV antibiotics. Surgical input greatly appreciated. DVT proph - SCDs for now. add pharmacologic if stay becomes prolonged Subjective Seen at bedside. No f/c/SOB/CP. Pain is manageable at present. No complaints. Review of Systems Review of Systems: See HPI Physical Exam Physical Exam: General: patient resting comfortably, NAD, non-toxic in appearance Skin: warm, dry, intact, no rashes or lesions HEENT: NC/AT, PERRL, EOMI, anicteric sclera, conjunctiva without injection, external ear normal to inspection and nontender, nares patent, moist mucus membranes Heart: +S1/S2, regular, no m/r/g Lungs: CTAB, no rales/rhonchi/wheezes Abd: nondistended Ext: warm, well perfused, dressing in place over right foot, no strikethrough Neuro: nonfocal, patient AA&O x 4, speech intact, no facial droop, moving all extremities on command Results & Data Results & Data Vital Signs (Past 12 Hours) Vital Signs Temp Pulse Resp BP Pulse Ox O2 Del Method 11/02/22 21:43 36.6 C 75 18 182/94 H 98 Room Air 11/02/22 20:15 36.9 C 83 18 166/103 H 97 Room Air Laboratory Results 11/03/22 07:03 11/03/22 07:03 Diagnostic Findings Foot X-Ray 11/02/22 18:16 RIGHT FOOT 3 VIEWS CLINICAL HISTORY: First toe pain. FINDINGS: 3 views of the right foot are compared to study dated 10/18/2022. The skeletal structures are well-mineralized. There has been amputation of the first toe through the head of the first proximal phalanx. There is soft tissue swelling within the stump of the first toe. No acute fracture is seen. No bony erosion is identified. Minimal degenerative change is seen at the first metatarsophalangeal joint and at the tarsometatarsal articulations. There are tiny dorsal and large plantar heel spurs. Atherosclerotic calcification is noted in the regional arteries. No soft tissue gas is identified. IMPRESSION: 1. No acute bony abnormality is identified. 2. There has been interval amputation of the first toe as above. 3. Soft tissue edema is seen in the stump of the first toe. Correlate clinically. Resident Activity Tracking Resident Involvement: Resident Care Provided Care Provided: [facility]
[2022-11-03 07:46] LABS: Hematocrit (blood only) 41.2 % (42.0-52.0); Hemoglobin 13.8 g/dl (14.0-18.0); Mean Corpuscular Hemoglobin 28.9 pg (25.0-34.0); Mean Corpuscular Hgb Conc 33.5 g/dL (32.0-36.0); Mean Corpuscular Volume 86.2 fL (80.0-100.0); Mean Platelet Volume 10.2 fL (9.4-12.4); Platelet Count 333 K/uL (130-400); RDW Coefficient of Variation 13.2 % (11.5-14.5); Red Blood Count 4.78 M/uL (4.70-6.10); White Blood Count 6.38 K/ul (4.8-10.8)
[2022-11-03 08:03] LABS: BUN Creatinine Ratio 16.5 (10-20); Calcium 9.4 mg/dl (8.6-10.3); Creatinine Clr Calc Pharmacy 88.1 ml/min; Est GFR (African American) 99.8 ml/min; Est GFR (Non-African American) 86.1 ml/min; Potassium 4.1 mmol/L (3.5-5.1)
[2022-11-03] MEDS: INSULIN ASPART PER UNIT CHARGE SC SCH ×4 (08:26→20:42)
[2022-11-03] MEDS: ASPIRIN 81 MG ECTAB PO SCH ×2 (08:48→13:16)
[2022-11-03] MEDS: LOSARTAN/HCTZ 50/12.5MG TAB PO SCH (08:48)
[2022-11-03] MEDS: amLODIPine BESYLATE 5 MG TAB PO SCH (08:49)
[2022-11-03] MEDS: NICOTINE 7 MG/24 HR TDSY TD SCH (08:50)
--- NOTE | 2022-11-03 09:24 | Anesthesiology Consultation ---
Date of Service November 03, 2022 Assessment & Plan (1) Encounter for pre-operative examination: Chart Review Chart Review: Acceptable Risk for Surgery History Surgery Operation Date: 11/03/22 13:05 Proposed Procedures p Right Great Toe Amputation Revision - Kan Preston DO Height/Weight Height: 5 ft 5 in Weight: 83.4 kg Allergies Allergy/AdvReac Type Severity Reaction Status Date / Time No Known Allergies Allergy Unverified 10/19/22 13:47 Medications Home Medications Medication Instructions Recorded Confirmed Last Taken amlodipine 5 mg tablet 5 mg PO DAILY 10/19/22 11/02/22 11/02/22 losartan 100 1 tab PO DAILY 10/19/22 11/02/22 11/02/22 mg-hydrochlorothiazide 25 mg tablet metformin 500 mg tablet 500 mg PO BID 10/19/22 11/02/22 11/02/22 simvastatin 10 mg tablet 10 mg PO HS 10/19/22 11/02/22 11/01/22 acetaminophen 500 mg tablet 500 mg PO QID PRN fever #30 tabs 10/23/22 11/02/22 Unknown (Tylenol Extra Strength) naproxen sodium 220 mg tablet 220 mg PO BID 11/02/22 11/02/22 11/02/22 (Aleve) Active Medications Generic Name Dose Route Start Last Admin Trade Name Freq PRN Reason Stop Dose Admin Amlodipine Besylate 5 mg 11/03/22 09:00 11/03/22 08:49 Amlodipine Besylate 5 Mg Tab PO 12/03/22 08:59 5 mg DAILY CATALINA Administration Aspirin 81 mg 11/03/22 09:00 11/03/22 08:48 Aspirin 81 Mg Ectab PO 12/03/22 08:59 81 mg QID CATALINA Administration HCTZ/Losartan Potassium 1 tab 11/03/22 09:00 11/03/22 08:48 Losartan/Hctz 50/12.5mg Tab PO 12/03/22 08:59 1 tab DAILY CATALINA Administration Cefepime HCl 2,000 mg/ Syringe 20 mls @ 5 mls/min 11/02/22 22:00 11/02/22 22:28 IV 11/09/22 21:59 5 mls/min Q12H CATALINA Administration Protocol Insulin Aspart 0 units 11/02/22 22:00 11/03/22 08:26 Insulin Aspart Per Unit Charge SC 12/02/22 21:59 Not Given ACHS CATALINA Miscellaneous 1 each 11/03/22 08:59 11/03/22 08:51 Remove Nicoderm Patch N/A 12/03/22 08:58 Not Given DAILY@0859 CATALINA Nicotine 7 mg 11/03/22 09:00 11/03/22 08:50 Nicotine 7 Mg/24 Hr Tdsy TD 12/03/22 08:59 7 mg QAM CATALINA Administration Oxycodone HCl 5 mg 11/02/22 21:43 11/03/22 06:18 Oxycodone Hcl Ir 5 Mg Tab (Immediate Release) PO 11/16/22 21:42 5 mg Q6H PRN Administration moderate to severe pain Simvastatin 10 mg 11/02/22 22:00 11/02/22 22:29 Simvastatin 10 Mg Tab PO 12/02/22 21:59 10 mg HS CATALINA Administration Past Medical History Medical History DM II (diabetes mellitus, type II), controlled HTN (hypertension) Hyperlipemia Past Surgical History Surgical History H/O toe surgery Social History Smoking Status: Never smoker tobacco type: smokeless tobacco Do You Dip or Chew Tobacco: Yes Hx Alcohol Use: Yes alcohol intake frequency: holidays/special occasions only Hx Substance Use: No substance use type: does not use Physical Exam Vital Signs Last Vital Signs Temp 36.5 C 11/03/22 07:43 Pulse 75 11/03/22 07:43 Resp 18 11/03/22 07:43 BP 169/106 H 11/03/22 07:43 Pulse Ox 99 11/03/22 07:43 O2 Del Method Room Air 11/03/22 07:43 Testing Laboratory Results 11/03/22 07:03 11/03/22 07:03 11/03/22 11/02/22 06:06 21:52 POC Glucose 113 H 95 Electrocardiogram Date: 10/19/22 Findings: + NSR @ (76) and + NSST changes
[2022-11-03] MEDS: CEFEPIME 2,000 MG in SYRINGE 0 ML IV SCH ×2 (09:28→21:53)
[2022-11-03] MEDS ORDERED: LIDOCAINE 2% 2 ML VIAL/AMP(20MG/ML) INFIL ONE (09:43)
[2022-11-03] MEDS ORDERED: ONDANSETRON INJ 2 MG/ML 2 ML VIAL ONE (09:43)
[2022-11-03] MEDS ORDERED: METOCLOPRAMIDE HCL INJ 5 MG/ML 2 ML VIAL ONE (09:43)
[2022-11-03] MEDS ORDERED: PROPOFOL IV EMULSION 10 MG/ML 20 ML VIAL IV ONE ×2 (09:43→12:12)
[2022-11-03] MEDS ORDERED: MIDAZOLAM HCL 1 MG/ML 2ML VIAL ONE (09:44)
[2022-11-03] MEDS ORDERED: fentaNYL citrate PF 100 MCG/2 ML VIAL ONE (09:44)
[2022-11-03] MEDS ORDERED: FAMOTIDINE/PF 20 MG/2 ML VIAL IV ONE (10:12)
--- NOTE | 2022-11-03 10:48 | History & Physical Bridge Note ---
Date of Service November 03, 2022 History & Physical Bridge Note I have examined the patient, reviewed the History & Physical and in the interval since the performance of the History & Physical I have noted the following changes of clinical significance: no changes noted
[2022-11-03] MEDS ORDERED: ONDANSETRON INJ 2 MG/ML 2 ML VIAL IV PRN (11:07)
[2022-11-03] MEDS ORDERED: LABETALOL HCL IV 5 MG/ML 20ML IV PRN (11:07)
[2022-11-03] MEDS ORDERED: fentaNYL citrate PF 100 MCG/2 ML VIAL IV PRN (11:07)
[2022-11-03] MEDS ORDERED: ATROPINE SULFATE 0.1 MG/ML 10ML SYR IV PRN (11:07)
--- NOTE | 2022-11-03 11:13 | Orthopedic Consultation ---
Date of Consultation November 03, 2022 Assessment & Plan (1) Abscess of great toe, right: Patient will be scheduled for revision amputation right great toe. Continue IV antibiotics with transition to p.o. antibiotics after surgery. ASA 81 mg daily for DVT prophylaxis. Thank you for the opportunity to participate in the care of this patient. Kan Preston (2) Dehiscence of amputation stump of right lower extremity: (3) Cellulitis of right foot: (4) Wound drainage: (5) Pain in toe of right foot: History of Present Illness Reason for Consultation: This is a 46-year-old gentleman seen at the request of Dr. Orlin paulino and the hospitalist service. Patient is well-known to my service and had prior partial amputation of the right great toe due to osteomyelitis. Over the last 48 to 72 hours prior to admission the patient developed increased redness, swelling and some green purulent discharge from the right great toe despite doing daily dressing changes. The patient then presented to the emergency department and w as then admitted to the hospitalist service for IV antibiotics and further surgical management. When seen at bedside, the patient noted that he was feeling somewhat better with bed rest and IV antibiotics. He did note some fevers and mild chills prior to admission. No other associated issues. Attending Physician: Madhav Ordaz DO Allergies Allergy/AdvReac Type Severity Reaction Status Date / Time No Known Allergies Allergy Unverified 10/19/22 13:47 Home Medications Medication Instructions Recorded Confirmed Type amlodipine 5 mg tablet 5 mg PO DAILY 10/19/22 11/02/22 History losartan 100 1 tab PO DAILY 10/19/22 11/02/22 History mg-hydrochlorothiazide 25 mg tablet metformin 500 mg tablet 500 mg PO BID 10/19/22 11/02/22 History simvastatin 10 mg tablet 10 mg PO HS 10/19/22 11/02/22 History acetaminophen 500 mg tablet 500 mg PO QID PRN fever #30 tabs 10/23/22 11/02/22 Rx (Tylenol Extra Strength) naproxen sodium 220 mg tablet 220 mg PO BID 11/02/22 11/02/22 History (Aleve) Patient History Medical History DM II (diabetes mellitus, type II), controlled HTN (hypertension) Hyperlipemia Surgical History H/O toe surgery Social History Smoking Status: Never smoker Do You Dip or Chew Tobacco: Yes; Hx Alcohol Use: Yes Hx Substance Use: No Preferred Language: Filipino Communication Ability: Effective Slicing Machine Feeder Required: No Beliefs That Will Affect Care: None Current Living Situation: Significant Other Current Living Situation Comment: patient living with significant other and patient's mother Other Information That Helps Us Care for You: No Feels Safe at Home: Yes Safety Concerns: Feels Safe At This Time Assistive Devices: None Physical Exam Constitutional: WD/WN, vitals as above Eyes: Strabismus. No glasses noted. ENMT: external ear and nose normal, oropharynx normal Neck: trachea midline, no thyromegaly Respiratory: Symmetric chest motion. No labored breathing. Gastrointestinal (Abdomen): Soft, nontender and nondistended. Musculoskeletal: Right great toe status post partial amputation of the distal phalanx and the condyles of the proximal phalanx with several sutures intact. Erythema and local purulence at the incision line with loss of stabilization of several of the sutures. Proximal redness with streaking to the level of the first metatarsal phalangeal joint. No obvious fluctuance however area of erythema over the medial first MTPJ. Pedal pulses palpable 2/4 bilateral lower extremities. Protective sensation intact from the midfoot proximal bilaterally. Normal range of motion of the ankles and lower extremities with the exception of the previously amputated right great toe. Early hammertoe formation bilateral. Skin: no rashes, warm and dry Results & Data Vital Signs (Past 12 Hours) Vital Signs Temp Pulse Resp BP Pulse Ox O2 Del Method 11/03/22 09:59 36.6 C 66 18 162/100 H 99 Room Air 11/03/22 07:43 36.5 C 75 18 169/106 H 99 Room Air Diagnostic Findings Radiographs reviewed noting prior partial amputation right great toe without evidence of osteomyelitis or fracture.
[2022-11-03] MEDS ORDERED: BUPIVACAINE 0.5 % 5 MG/1 ML MPF 30ML VIAL ONE (12:29)
[2022-11-03] MEDS ORDERED: ceFAZolin 330 MG/ML 1 GM VIAL ONE (12:29)
--- NOTE | 2022-11-03 12:32 | Operative Report ---
Post Operative Report Pre & Post Diagnosis Operation Date: 11/03/22 10:30 Preop diagnosis: 1. Dehiscence right great toe 2. Right great toe infection with recent history of osteomyelitis 3. Cellulitis right great toe Postop diagnosis: 1. Dehiscence right great toe 2. Right great toe infection with recent history of osteomyelitis 3. Cellulitis right great toe I identified the patient and participated in the time-out.: Yes Procedure Operation Date: 11/03/22 10:30 Procedure: 1. Revision amputation right great toe including resection bone and tissue dist al aspect proximal phalanx. Surgeon Kan Preston, DO Crop Setting Out Machine Operator None Estimated Blood Loss 1 Findings Consistent with Post-Op Diagnosis Specimens Aerobic, Gram stain and anaerobic specimen sent to laboratory distal aspect r ight great toe bone. Anesthesia Type MAC Regional Complications none Disposition Accompanied Patient To Recovery: No Indications This 46-year-old gentleman had previously developed osteomyelitis of the right great toe and underwent amputation of the distal phalanx and the distal condyles of the proximal phalanx of the right great toe. He had an uneventful postoperative recovery course until the last 72 hours when he began noticing increasing redness, pain and some trace purulent drainage on his dressings. He presented to the emergency department at [facility] was evaluated placed on IV antibiotics and then scheduled for surgery after orthopedic consultation as indicated. Description of Procedure All potential risks, benefits, complications, alternatives, rehab, need for fu rther surgery, potential for incomplete relief of symptoms, neurovascular injury, DVT, PE, , stiffness, weakness, loss of function, persistent pain, swelling, numbness, bone fracture and wound complications were discussed with the patient. The patient decided to proceed with the procedure as indicated. The patient was taken to the operative suite and placed supine on the operating room table. After review of the consent and identification of the proper operative site, the patient was sedated. The operative right lower extremity was then sterilely prepped and draped in the usual fashion. Elevated, exsanguinated with an Esmarch bandage and Esmarch tourniquet applied over a sterile surgical towel at the level of the ankle. Quarter percent Marcaine plain local anesthetic was injected at the site of the planned revision amputation right great toe. Several sutures had loosened or pulled through the tissue. The remaining nylon sutures were sharply removed using iris scissors. Next, the #15 blade scalpel was used to incise and debride the uneven macerated, roughened tissue edges of the partial amputation. The distal phalanx was completely missing as a result of the previous amputation. There was local erythema, maceration and purulence at the incision line which was then resected with a 15 blade scalpel and adjacent soft tissue which was then sharply excised to even the soft tissue envelope to more healthy appearing tissue. Careful dissection was performed with tenotomy scissors to expose the distal aspect of the proximal phalanx and a specimen was obtained down to the level of bone for aerobic, anaerobic and Gram stain evaluation. The specimen container was then passed off the back table. A sagittal saw was then used to resect the distal aspect of the proximal phalanx to reveal firm healthy bone. Next a rongeur was then used to smooth and contour the distal aspect of the proximal phalanx. The residual tissue was then partially incised to allowed robust soft tissue coverage of the distal bony phalanx. This provided a more uniform and neat closure of the plantar flap. 3 L of sterile normal saline irrigation was performed with pulsatile lavage until clear. Plantar flap of the great toe was then carefully approximated to the dorsum and then closed using interrupted 3-0 Monocryl antibiotic and 3-0 Ethilon nylon sutures using combination of horiz ontal mattress, vertical mattress and simple sutures. A sterile compressive forefoot dressing was applied and then overwrapped with a Nehemias wrap. The tourniquet was released and normal hyperemic response return to the great toe and lesser digits. The patient was awakened and taken to recovery in stable condition. I attest to the content of the Intraoperative Record and any orders documented therein. Any exceptions are noted below.
--- NOTE | 2022-11-03 12:50 | Anesthesiology Progress Note ---
Date of Service November 03, 2022 Anesthesia Post Procedure Vital Signs Vital Signs: Temp Pulse Pulse Pulse Resp BP BP 11/03/22 12:45 65 16 130/95 11/03/22 12:35 58 L 18 159/96 H 11/03/22 12:28 36 C L 63 11 L 137/93 11/03/22 09:59 36.6 C 66 18 162/100 H 11/03/22 07:43 36.5 C 75 18 169/106 H 11/02/22 21:43 36.6 C 75 18 182/94 H 11/02/22 20:15 36.9 C 83 18 166/103 H 11/02/22 18:28 102 H 20 179/112 H 11/02/22 17:53 37.1 C 102 H 20 192/108 H Pulse Ox O2 Del Method 11/03/22 12:45 99 Room Air 11/03/22 12:35 98 Room Air 11/03/22 12:28 96 Room Air 11/03/22 09:59 99 Room Air 11/03/22 07:43 99 Room Air 11/02/22 21:43 98 Room Air 11/02/22 20:15 97 Room Air 11/02/22 18:28 96 11/02/22 17:53 99 Room Air Pain Intensity Right Toe: Pain Intensity: 5 Transfer of Care Handoff Completed per policy Notes Mental Status: alert / awake / arousable Patient Amnestic to Procedure: Yes Nausea / Vomiting: adequately controlled Pain: adequately controlled Airway Patency, RR, SpO2: stable & adequate BP & HR: stable & adequate Hydration State: stable & adequate Anesthetic Complications: no major complications apparent
--- NOTE | 2022-11-03 19:04 | Billing Data ---
Date of Service November 03, 2022 Coding Level of Care Code 93139 SUB INP/OBS CARE MIN
[2022-11-03] MEDS: SIMVASTATIN 10 MG TAB PO SCH (20:35)
[2022-11-04] MEDS: LOSARTAN/HCTZ 50/12.5MG TAB PO SCH (06:22)
[2022-11-04 07:24] LABS: Hematocrit (blood only) 40.8 % (42.0-52.0); Mean Corpuscular Hemoglobin 29.2 pg (25.0-34.0); Mean Corpuscular Hgb Conc 34.3 g/dL (32.0-36.0); Mean Corpuscular Volume 85.2 fL (80.0-100.0); Mean Platelet Volume 10.2 fL (9.4-12.4); Platelet Count 336 K/uL (130-400); RDW Standard Deviation 39.7 fL (36.4-46.3); Red Blood Count 4.79 M/uL (4.70-6.10); White Blood Count 8.23 K/ul (4.8-10.8)
--- NOTE | 2022-11-04 07:33 | Hospitalist Progress Note ---
Date of Service November 04, 2022 Assessment & Plan (1) Wound drainage: Plan: 46 y/o male with DM, HTN, HLP, recent amputation of the right great toe distal phalanx for osteomyelitis and debridement of diabetic ulcer performed by Dr. Preston on 10/21/22 returns with increase in purulent drainage from his surgical site as well as increased pain and swelling now POD1 from wound revision 11/[address] Preston doing well on IV abx. #Right foot infection #Recent surgical removal of right great toe #Recent osteomyelitis He is afebrile, HD stable and non-toxic in appearance. Surgical site with possible infection. Imaging as above, no suggestion of osteomyelitis on x-ray. This does not r/o osteo. CRP WNL. No leukocytosis. Ortho consulted - appreciate recs. Now POD1 from wound revision. Cultures growing gram negative rods. Awaiting sensitivities. [] wound care [] awaiting sensitivities on control [] abx - cefepime [] pain control - tylenol and oxy #HLD Chronic. Continue Simvastatin 10mg po qHS #HTN Chronic. Blood pressure elevated. Continue home meds - Losartan/HCTZ, Amlodipine #Type II DM Overall well controlled on metformin. Last HgbA1C: 5.7 on 10/20/22. Hold metformin while inpatient. [] SSI while inpatient - BSG 110-140 #Lung Nodule Incidental finding on CT Chest. Infectious vs inflammatory vs malignancy. Will need repeat CT 11/19/2022 for further information. Patient has also had 30 lbs of weight loss in the last few weeks. Attributed to dietary changes for lifestyle control of diabetes. Warrants further workup. FENGI - carb consistent diet DVT ppx - resume ASA 81mg po QID Code - Full Dispo - med/surg (2) Hyperlipemia: (3) HTN (hypertension): (4) DM II (diabetes mellitus, type II), controlled: Admission and Anticipated Discharge Date Admission Date: November 02, 2022 Supervising Physician Co-Signing Physician Notes I personally examined the patient and verified all bazan points of history and exam, discussed case, and agree with decision making with Dr Hsu Feels okay, would like to go home, but after we discussed waiting on full culture results for sensitivities, he expressed a good understanding and was okay with staying. Extensive discussion on tobacco abuse and stress management as well. Applauded his effortsdiscussed his current A1c is 5.7, and he notes it was not that long ago it was 14-16. Vitals noted, in general he is awake and alert pleasant no distress. HEENT normocephalic atraumatic mucous membranes moist. Breathing unlabored no accessory muscle use good effort. Skin shows no rashes no pallor or icterus. Neuro without focal deficits. Foot in a walking boot Diabetic foot infection/osteomyelitis/cellulitisfurther amputation done yesterday, continue cefepime until sensitivities are back. DVT proph - SCDs for now. add pharmacologic if stay becomes prolonged but probably will be able to go home tomorrow. Counseled on tobacco cessation Subjective Seen at bedside. No f/c/SOB/CP. Pain is manageable at present. No complaints. Review of Systems Review of Systems: See HPI Physical Exam Physical Exam: General: patient resting comfortably, NAD, non-toxic in appearance Skin: warm, dry, intact, no rashes or lesions HEENT: NC/AT, PERRL, EOMI, anicteric sclera, conjunctiva without injection, external ear normal to inspection and nontender, nares patent, moist mucus membranes Heart: +S1/S2, regular, no m/r/g Lungs: CTAB, no rales/rhonchi/wheezes Abd: nondistended Ext: warm, well perfused, dressing in place over right foot, no strikethrough Neuro: nonfocal, patient AA&O x 4, speech intact, no facial droop, moving all extremities on command Results & Data Results & Data Vital Signs (Past 12 Hours) Vital Signs Temp Pulse Resp BP Pulse Ox O2 Del Method 11/04/22 06:08 162/109 H 11/04/22 06:04 37.0 C 75 19 158/108 H 97 Room Air 11/04/22 00:04 36.7 C 82 18 160/93 H 96 Room Air 11/03/22 19:36 36.7 C 67 18 164/94 H 99 Room Air Laboratory Results 11/04/22 06:55 11/04/22 06:55 Resident Activity Tracking Resident Involvement: Resident Care Provided Care Provided: Adult Hospital Medicine
[2022-11-04 07:36] LABS: Calcium 9.4 mg/dl (8.6-10.3); Creatinine Clr Calc Pharmacy 82.5 ml/min; Est GFR (African American) 92.2 ml/min; Est GFR (Non-African American) 79.5 ml/min; Potassium 3.7 mmol/L (3.5-5.1)
[2022-11-04] MEDS: ASPIRIN 81 MG ECTAB PO SCH (07:37)
[2022-11-04] MEDS: amLODIPine BESYLATE 5 MG TAB PO SCH (07:37)
[2022-11-04] MEDS: NICOTINE 7 MG/24 HR TDSY TD SCH (07:38)
[2022-11-04] MEDS: INSULIN ASPART PER UNIT CHARGE SC SCH ×4 (08:31→21:51)
[2022-11-04] MEDS: CEFEPIME 2,000 MG in SYRINGE 0 ML IV SCH ×2 (08:32→21:52)
--- NOTE | 2022-11-04 18:59 | Billing Data ---
Date of Service November 04, 2022 Coding Level of Care Code 68935 SUB INP/OBS CARE MIN
[2022-11-04] MEDS: SIMVASTATIN 10 MG TAB PO SCH (21:36)
--- NOTE | 2022-11-05 07:51 | Discharge Summary ---
Date of Service November 05, 2022 Admission HPI Per Admitting Provider Constantin Dodosn is a 46yo male with history of well controlled DM, HTN and HLP presenting with pain and drainage from his right great toe. Patient was recently seen at [facility] from 10/19/22 - 10/23/22 with concern for osteomyelitis of the right great toe. He had an MRI which revealed reactive osteitis vs osteomyelitis. He had an arterial doppler which was normal. Patient was treated with IV antibiotics - Vancomycin/Zosyn then Vancomycin/Cefepime. He was taken to the OR on 10/21/[address] Preston for amputation fo the great toe. The surgery went well and patient was discharged home on 10/23/22. He has been changing the dressing every other day and notes a large amount of serosanguinous drainage present on the bandages. Over the last several days he has had a sharp, shooting pain in the dorsal portion of the surgical stump and in the joint as well as some tingling in the toe. He noted an increased amount of drainage today and the drainage was more cloudy and green in color. Patient has been taking his ASA four times daily until he ran out 3 days ago. He denies fever, chills, cough, CP, SOB. Denies abdominal pain, nausea, vomiting or diarrhea. No additional complaints at this time. In the ER he is afebrile, mildly tachycardic at 102bpm, NAD Admission Exam Per Admitting Provider General: patient resting comfortably, NAD, non-toxic in appearance, AA&O x 4 Skin: warm, dry, intact, no rashes or lesions HEENT: NC/AT, PERRL, EOMI, anicteric sclera, conjunctiva without injection, external ear normal to inspection and nontender, nares patent, moist mucus membranes, dentition intact, no oropharyngeal lesions, neck supple, trachea midline, no LAD, no thyromegaly, no JVD Heart: +S1/S2, regular, several ectopic beats, no m/r/g Lungs: equal air entry bilaterally, no rales/rhonchi/wheezes Abd: +BS, soft, NT/ND, no masses/organomegaly/ascites Ext: warm, 2+ pulses in UE/LE bilaterally, no clubbing/cyanosis, right great toe with swelling, purulent drainage present on dressings, skin scaling, sutures in place. 2+ pulses. No evidence of progressive infection of the foot Neuro: nonfocal, patient AA&O x 4, speech intact, no facial droop, moving all extremities on command with equal strength 5/5 Principal Diagnosis cellulitis Discharge Exam General: patient resting comfortably, NAD, non-toxic in appearance Skin: warm, dry, intact, no rashes or lesions HEENT: NC/AT, PERRL, EOMI, anicteric sclera, conjunctiva without injection, external ear normal to inspection and nontender, nares patent, moist mucus membranes Heart: +S1/S2, regular, no m/r/g Lungs: CTAB, no rales/rhonchi/wheezes Abd: nondistended Ext: warm, well perfused, dressing in place over right foot, no strikethrough Neuro: nonfocal, patient AA&O x 4, speech intact, no facial droop, moving all extremities on command Discharge Data Allergies Allergy/AdvReac Type Severity Reaction Status Date / Time No Known Allergies Allergy Unverified 10/19/22 13:47 Consultations 11/02/22 19:44 ED Decision to Admit Stat 11/02/22 21:43 Consult Orthopedic Surgery Routine Procedures Performed Foot X-Ray 11/02/22 18:16 RIGHT FOOT 3 VIEWS CLINICAL HISTORY: First toe pain. FINDINGS: 3 views of the right foot are compared to study dated 10/18/2022. The skeletal structures are well-mineralized. There has been amputation of the first toe through the head of the first proximal phalanx. There is soft tissue swelling within the stump of the first toe. No acute fracture is seen. No bony erosion is identified. Minimal degenerative change is seen at the first metatarsophalangeal joint and at the tarsometatarsal articulations. There are tiny dorsal and large plantar heel spurs. Atherosclerotic calcification is noted in the regional arteries. No soft tissue gas is identified. IMPRESSION: 1. No acute bony abnormality is identified. 2. There has been interval amputation of the first toe as above. 3. Soft tissue edema is seen in the stump of the first toe. Correlate clinically. Operation Date: 11/03/22 10:30 Actual Procedures p Right Great Toe Amputation Revision with (Right) - Kan Preston DO 11/05/22 07:21 11/05/22 07:21 Hospital Course (1) Wound drainage: 46 y/o male with DM, HTN, HLP, recent amputation of the right great toe distal phalanx for osteomyelitis and debridement of diabetic ulcer performed by Dr. Preston on 10/21/22 returns with increase in purulent drainage from his surgical site as well as increased pain and swelling now POD1 from wound revision 11/[address] Preston with + blood cultures growing pansensitive pseudomonas stable for transition to oral abx and discharge home. #Right foot infection #Recent surgical removal of right great toe #Recent osteomyelitis He is afebrile, HD stable and non-toxic in appearance. Surgical site with possible infection. Imaging as above, no suggestion of osteomyelitis on x-ray. This does not r/o osteo. CRP WNL. No leukocytosis. Ortho consulted - appreciate recs. Now POD2 from wound revision. Cultures growing pansensitive pseudomonas. Will treat with an additional 10 days of oral antibiotics - ciprofloxacin 750 mg BID. Continue with tylenol as needed for pain. Recommend changing dressing either every 2-3 days or when saturated. Close follow up with his surgeon and podaitry. Has a scheduled appointment with PCP office 11/07. #HLD Chronic. Continue Simvastatin 10mg po qHS #HTN Chronic. Blood pressure elevated. Continue home meds - Losartan/HCTZ, Amlodipine #Type II DM Overall well controlled on metformin. Last HgbA1C: 5.7 on 10/20/22. SSI while inpatient. Resume home meds on discharge. #Lung Nodule Incidental finding on CT Chest. Infectious vs inflammatory vs malignancy. Will need repeat CT 11/19/2022 for further information. Patient has also had 30 lbs of weight loss in the last few weeks. Attributed to dietary changes for lifestyle control of diabetes. Warrants further workup. FENGI - carb consistent diet DVT ppx - resume ASA 81mg po QID Code - Full Dispo - med/surg (2) Hyperlipemia: (3) HTN (hypertension): (4) DM II (diabetes mellitus, type II), controlled: Total Time Total Time Spent Total Time Spent (In Minutes): <30 Discharge Plan Discharge Items Patient Disposition: Home - Self-Care Reason For Visit: ?toe infection Discharge Diagnosis: cellulitis Condition on Discharge: Good Activity: Per Instructions section Non-emergency contact: Primary Care Provider and Surgeon Call non-emergency contact if: your pain is concerning for you, your temperature is above 101.5 and your wound has increased drainage Follow-up/Referrals: Kan Preston DO [Surgeon] - 11/24/22 11:20 am (Follow up with Dr Preston on Thursday November 24, 2022 at 11:[address] Preston stated to finish the prescribed antibiotic and to do your daily dressing changes. ) Ame Adams DPM [Physician] - Vern Driscoll MD [Primary Care Provider] - 11/07/22 9:50 am (appointment with Fawn Saldana on 11/07/22 at 9:50 am) Diet: Carb Consistent or DM2 Addtl Attending Provider Instructions: You were admitted to the hospital for an infection in your toe. Dr. Preston revised the previous wound on your toe. You were also treated with IV antib iotics. Your wound cultures grew pseudomonas. We will transition from IV antibiotics to oral ciprofloxacin 750 mg twice a day. Take the entire course of this medication. A discharge summary will be sent to your primary care physician to ensure continuity of care. Please bring this discharge summary with you to your next office appointment so that your provider can review it at that time. Follow-up appointments: You have an appointment scheduled with Fawn Saldana PA 11/07. It is very important that you follow up with them shortly after discharge from the hospital. We have requested a follow up appointment with your surgeon Dr. Preston. If you do not hear from them in the 5 business days call. Keep all your follow-up appointments as already scheduled. If you cannot make an appointment, notify your provider. Medications: Your medication list has been reviewed and reconciled upon discharge to ensure accuracy and continuity of care. An updated list of all your medications is included with your hospital discharge paperwork. Please review this list closely, and make note of any changes. We sent a new medication called ciprofloxacin to your pharmacy. Take one pill every 12 hours for 10 days. If you have any issues filling these prescriptions, please call [phone] and ask to leave a message for Dr. Hsu. Take your medications as instructed; do not skip a dose of your medicines. Make sure all of your doctors know every medicine you are taking (including msab-ubp-wqmulgl medicines, vitamins, and supplements). Call your primary care provider before taking any new medicines (including over- the- counter medicines, vitamins, and supplements), because some of these may interact with your current medications, or may make your symptoms worse. Tell your primary care provider if you cannot afford your medications. CONTACT YOUR PRIMARY CARE PROVIDER if you experience any of the following: fevers/chills increased foul smelling discharge from wound Difficulty following your treatment plan, or difficulty taking medications CALL 911 OR GO TO THE EMERGENCY DEPARTMENT if you experience any of the following: Sudden, severe abdominal pain or nausea/vomiting Severe chest pain, or chest pain that radiates (moves) to your jaw or arm Sudden, severe shortness of breath or difficulty breathing Thank you for allowing us to participate in your care Pending Studies at Discharge: No Stand-Alone Forms: My [facility] [employer], Smoking Cessation Medications and DC Order Prescriptions: New nicotine 7 mg/24 hr Patch 24 Hour 7 mg transdermal QAM Qty: 14 3RF ciprofloxacin HCl 750 mg tablet 750 mg PO BID 10 Days Qty: 20 0RF Continued naproxen sodium [Aleve] 220 mg Tablet 220 mg PO BID amlodipine 5 mg tablet 5 mg PO DAILY metformin 500 mg tablet 500 mg PO BID simvastatin 10 mg tablet 10 mg PO HS losartan-hydrochlorothiazide 100-25 mg tablet 1 tab PO DAILY acetaminophen [Tylenol Extra Strength] 500 mg tablet 500 mg PO QID PRN (Reason: fever) Qty: 30 0RF Discharge Orders: Discharge Order (Routine); Ordered 11/05/22 Ordered By: Chari Hsu Admission Data Admit Date/Time: 11/04/22 16:25 Attending Provider: Madhav Ordaz Admit Provider: Madhav Ordaz Primary Care Provider: Vern Driscoll Other Providers: Loretta Mcmillan ; Kan Preston Other Interventions: Discharge Summary Assessment (RN) Last Done: 11/05/22 11:52 Supervising Physician Co-Signing Physician Notes I personally examined the patient and verified all bazan points of history and exam, discussed case, and agree with decision making with Dr Hsu Feels good, feels up to going home, culture and antibiotic selection, as well as tendinopathy risk discussed with patient. Vitals noted, in general he is awake and alert pleasant no distress. HEENT normocephalic atraumatic mucous membranes moist. Breathing unlabored no accessory muscle use good effort. Skin shows no rashes no pallor or icterus. Neuro without focal deficits. Foot in a walking boot Diabetic foot infection/osteomyelitis/cellulitisfurther amputation done during this hospital stay. PseudomonasHome on Cipro (was on cefepime while here) DVT proph -SCDs and ambulation utilized during this hospital stay Briefly reiterated counseling on tobacco cessation Resident Activity Tracking Resident Involvement: Resident Care Provided Care Provided: Adult Hospital Medicine
[2022-11-05 08:11] LABS: Hematocrit (blood only) 42.4 % (42.0-52.0); Hemoglobin 14.9 g/dl (14.0-18.0); Mean Corpuscular Hemoglobin 28.9 pg (25.0-34.0); Mean Corpuscular Hgb Conc 35.1 g/dL (32.0-36.0); Mean Corpuscular Volume 82.3 fL (80.0-100.0); Mean Platelet Volume 10.7 fL (9.4-12.4); Platelet Count 361 K/uL (130-400); RDW Coefficient of Variation 13.2 % (11.5-14.5); RDW Standard Deviation 39.7 fL (36.4-46.3); Red Blood Count 5.15 M/uL (4.70-6.10); White Blood Count 6.74 K/ul (4.8-10.8)
[2022-11-05] MEDS: amLODIPine BESYLATE 5 MG TAB PO SCH (08:23)
[2022-11-05] MEDS: LOSARTAN/HCTZ 50/12.5MG TAB PO SCH (08:23)
[2022-11-05 08:24] LABS: BUN Creatinine Ratio 28.6 (10-20); Calcium 9.7 mg/dl (8.6-10.3); Creatinine Clr Calc Pharmacy 86.4 ml/min; Est GFR (African American) 97.5 ml/min; Est GFR (Non-African American) 84.1 ml/min; Potassium 3.8 mmol/L (3.5-5.1)
[2022-11-05] MEDS: NICOTINE 7 MG/24 HR TDSY TD SCH (08:24)
[2022-11-05] MEDS: ASPIRIN 81 MG ECTAB PO SCH (08:24)
[2022-11-05] MEDS: INSULIN ASPART PER UNIT CHARGE SC SCH ×2 (08:33→13:06)
[2022-11-05] MEDS: CEFEPIME 2,000 MG in SYRINGE 0 ML IV SCH (10:30)
--- NOTE | 2022-11-05 17:29 | Billing Data ---
Date of Service November 05, 2022 Coding Level of Care Code 54681 IN/OBS DISCH 30 MIN/LESS
== END 2022-11-05 13:07 | disposition home or self-care (01) | DRG 617 ==
LOC: ED 17:50 → 3N 17:50 → SUATTDRO 20:14 → 3N 21:30

== ENCOUNTER 2023-05-14 11:10 | Inpatient (IN) ==
--- NOTE | 2023-05-14 11:35 | ED Triage Note ---
Date of Service May 14, 2023 Provider in Triage Author: Michael Hernandez History of Present Illness This patient was briefly evaluated while in triage. An abbreviated physical exam was performed. This patient is a 47-year-old Male who presents to the ED for evaluation of infection Sores on right foot. Saw PCP today, sent here. Diabetes neuropathy. Currently on Clindamycin for the past 3 days. Physical Exam GENERAL: 47 year old male. In no acute distress. SKIN: No lesions or rashes. Shoe covering the right foot. HEART: Regular rate and rhythm. LUNGS: Clear to auscultation. NEURO: Alert and oriented. No deficits. MUSCULOSKELETAL: No deformities to inspection of the extremities. Shoe currently in place. PSYCH: Patient is pleasant and answers all questions appropriately. Initial orders for labs and / or imaging were placed and patient was placed in the waiting area until a bed is available. Please see further documentation for the full ED course.
--- NOTE | 2023-05-14 12:10 | XRay Report ---
XR foot RT min 3V routine CLINICAL HISTORY: Right foot wounds. COMPARISON: MRI of the right foot October 19, 2022. Right foot radiographs November 02, 2022. FINDINGS: There are postoperative findings consistent with resection of the distal phalanx of the ri ght first toe. Interval erosion of the distal aspect of the right first proximal phalanx is noted whi ch compared to radiographs of November 02, 2022. Interval mild erosion of the distal tuft of the distal p halanx of the right second toe is also noted. No additional erosions are identified within the right foot. There is moderate vascular calcification. No radiopaque foreign bodies are present. There are n o fractures. IMPRESSION: 1. Status post amputation of the distal phalanx of the right first toe. 2. Interval bony erosion of the distal aspect of the proximal phalanx of the right first toe. This pollack ggests acute to subacute osteomyelitis. 3. Interval subtle erosion of the distal tuft of the distal phalanx of the right second toe suggestiv e of age indeterminate osteomyelitis. 4. No fractures within the right foot. ACT 112: Negative or not required by law. Electronically signed by: Rashid Aguilar M.D. 05/14/2023 12:09 PM
[2023-05-14 12:40] LABS: Basophils # (auto) 0.05 K/uL (0.00-0.20); Basophils % (auto) 0.7 %; Eosinophils # (auto) 0.06 K/uL (0.00-0.50); Eosinophils % (auto) 0.8 %; Hematocrit (blood only) 49.5 % (42.0-52.0); Hemoglobin 17.7 g/dl (14.0-18.0); Immature Granulocytes # (auto) 0.01 K/uL (0.01-0.20); Immature Granulocytes % (auto) 0.1 %; Lymphocytes # (auto) 1.34 K/uL (1.20-3.40); Lymphocytes % (auto) 18.7 %; Mean Corpuscular Hemoglobin 30.5 pg (25.0-34.0); Mean Corpuscular Hgb Conc 35.8 g/dL (32.0-36.0); Mean Corpuscular Volume 85.3 fL (80.0-100.0); Mean Platelet Volume 10.2 fL (9.4-12.4); Monocytes # (auto) 0.57 K/uL (0.11-0.59); Neutrophils # (auto) 5.13 K/uL (1.40-6.50); Neutrophils % (auto) 71.7 %; Platelet Count 319 K/uL (130-400); RDW Coefficient of Variation 12.4 % (11.5-14.5); RDW Standard Deviation 38.5 fL (36.4-46.3); White Blood Count 7.16 K/ul (4.8-10.8)
[2023-05-14 12:51] LABS: Albumin Globulin Ratio 1.5 (0.9-2); Albumin Level 4.6 gm/dl (3.4-5.0); BUN Creatinine Ratio 17.4 (10-20); Calcium 10.3 mg/dl (8.6-10.3); Creatinine Clr Calc Pharmacy 84.1 ml/min; Est GFR (African American) 86.7 ml/min; Est GFR (Non-African American) 74.8 ml/min; Globulin 3.1 gm/dl (2.5-4.0); Potassium 3.6 mmol/L (3.5-5.1); Total Protein 7.7 gm/dl (6.0-8.3)
--- NOTE | 2023-05-14 13:04 | Emergency Department Note ---
History of Present Illness General Chief complaint: Infection Stated complaint: DIABETIC SORES, INFECTION, REF BY DOC Time Seen by Provider: 05/14/23 12:54 History of Present Illness This is a 47-year-old male that presents to the emergency department via private vehicle with complaints of "foot infection". Patient notes that he has had some ongoing wounds now to the toes adjacent to the right first toe. He saw his PCP and was referred here today over concern for possible infection. He notes a history of diabetic neuropathy. He is currently on oral clindamycin and has been for the past 3 days. The patient denies any fevers or chills. No nausea or vomiting. EMR review shows pansensitive Pseudomonas grew from the right great toe on 11/03/2022. Home Medications Medication Instructions Recorded Confirmed Type amlodipine 5 mg tablet 5 mg PO DAILY 10/19/22 02/24/23 History losartan 100 1 tab PO DAILY 10/19/22 02/24/23 History mg-hydrochlorothiazide 25 mg tablet metformin 500 mg tablet 500 mg PO BID 10/19/22 02/24/23 History simvastatin 10 mg tablet 10 mg PO HS 10/19/22 02/24/23 History acetaminophen 500 mg tablet 500 mg PO QID PRN fever #30 tabs 10/23/22 02/24/23 Rx (Tylenol Extra Strength) naproxen sodium 220 mg tablet 220 mg PO BID 11/02/22 02/24/23 History (Aleve) nicotine 7 mg/24 hr daily 7 mg transdermal QAM #14 ea 11/05/22 02/24/23 Rx transdermal patch itraconazole 100 mg capsule 200 mg (2 x 100 mg) PO .COMPLEX 02/09/23 02/24/23 Rx #120 caps Allergies Allergy/AdvReac Type Severity Reaction Status Date / Time No Known Allergies Allergy Unverified 02/24/23 09:37 Past Med/Surg History Medical History Hyperlipemia HTN (hypertension) DM II (diabetes mellitus, type II), controlled Surgical History H/O toe surgery Social History Smoking Status: Never smoker Tobacco Type: Smokeless Tobacco (Dip or Chew) Do You Dip or Chew Tobacco: Yes; Hx Alcohol Use: Yes Hx Substance Use: No Preferred Language: Malay Communication Ability: Effective Building Surveyor Required: No Beliefs That Will Affect Care: None Current Living Situation: Significant Other Current Living Situation Comment: patient living with significant other and patient's mother Feels Safe at Home: Yes Assistive Devices: Glasses Review of Systems A total of 10 systems reviewed and were otherwise negative Physical Exam Vital Signs Vital Signs - 24 hr 05/14/23 11:33 05/14/23 13:47 05/14/23 13:47 Temperature 36.9 C Temperature Source Temporal Artery Scan Pulse Rate 98 H 98 H Pulse Rate [Apical] 96 H Respiratory Rate 18 18 Respiratory Effort / Characteristics Non-Labored Non-Labored Spontaneous Respiratory Depth Normal Normal Respiratory Pattern Regular Blood Pressure 143/96 H Blood Pressure [Left Arm] 144/96 H Blood Pressure Mean 111 Blood Pressure Mean [Left Arm] 112 Blood Pressure Position [Left Arm] Lying Pulse Oximetry 99 98 Oxygen Delivery Method Room Air Room Air Sepsis Recent Fever Within 48 Hours No Sepsis New/Unexplained Change in Mental Status No Sepsis Action Taken by Nursing No Action Required VITAL SIGNS - Vital signs and nursing notes were reviewed. Hypertensive, otherwise stable. GENERAL -47-year-old male appearing his stated age who is in no acute distress. Communicates well with provider and answers questions appropriately. SKIN - the right first toe shows partial amputation without erythema. Right second toe with erythema tracking to the dorsal aspect of the right foot outlined by skin marking pen. Small blister to the medial aspect of the right second toe. Cap refill of all toes within normal limits. There is no drainage at the present time to culture. HEAD - NC/AT. EYES - Sclera anicteric. MOUTH/OROPHARYNX - Without perioral cyanosis. NECK - No nuchal rigidity. LUNGS - CTA CARDIAC - RRR EXTREMITIES - No clubbing or peripheral cyanosis. +5/5 strength noted in UE/LE bilaterally. NEUROLOGIC - Cranial nerves II through XII grossly intact. PSYCH - A&O, and cooperates fully with examiner. Pt is very pleasant and interacts well with examiner. Course Administered Medications Sodium Chloride (Nss) 1,000 mls @ 999 mls/hr IV .Q1H1M [facility] Stop: 05/14/23 14:15 Last Admin: 05/14/23 13:40 Dose: 999 mls/hr Documented By: KAYLA Discontinued Medications Cefepime HCl (Maxipime) 2,000 mg in 20 mls @ 5 mls/min IV NOW STA; Protocol Stop: 05/14/23 13:08 Last Admin: 05/14/23 13:39 Dose: 5 mls/min Documented By: KAYLA Medical Decision Making Laboratory Data 05/14/23 12:16 05/14/23 12:16 Lab Results 05/14/23 Range/Units 12:16 WBC 7.16 (4.8-10.8) K/ul RBC 5.80 (4.70-6.10) M/uL Hgb 17.7 (14.0-18.0) g/dl Hct 49.5 (42.0-52.0) % MCV 85.3 (80.0-100.0) fL MCH 30.5 (25.0-34.0) pg MCHC 35.8 (32.0-36.0) g/dL RDW Std Deviation 38.5 (36.4-46.3) fL RDW Coeff of Arcelia 12.4 (11.5-14.5) % Plt Count 319 (130-400) K/uL MPV 10.2 (9.4-12.4) fL Immature Gran % (Auto) 0.1 % Neut % (Auto) 71.7 % Lymph % (Auto) 18.7 % [place] % (Auto) 8.0 % Eos % (Auto) 0.8 % Baso % (Auto) 0.7 % Neut # (Auto) 5.13 (1.40-6.50) K/uL Lymph # (Auto) 1.34 (1.20-3.40) K/uL [place] # (Auto) 0.57 (0.11-0.59) K/uL Eos # (Auto) 0.06 (0.00-0.50) K/uL Baso # (Auto) 0.05 (0.00-0.20) K/uL Immature Gran # (Auto) 0.01 (0.01-0.20) K/uL Sodium 136 (136-145) mmol/L Potassium 3.6 (3.5-5.1) mmol/L Chloride 99 (98-107) mmol/L Carbon Dioxide 27 (21-32) mmol/L Anion Gap 10 (3-11) BUN 20 (6-23) mg/dl Creatinine 1.15 (0.6-1.4) mg/dl Est Cr Clr Drug Dosing 84.1 ml/min Est GFR ( Amer) 86.7 ml/min Est GFR (Non-Af Amer) 74.8 ml/min BUN/Creatinine Ratio 17.4 (10-20) Glucose 140 H (70-99(Fasting)) mg/dl Lactate 2.2 H* (0.4-2.0) mmol/L Calcium 10.3 (8.6-10.3) mg/dl Total Bilirubin 1.0 (0.2-1.0) mg/dl AST 24 (13-39) U/L ALT 33 (7-52) U/L Alkaline Phosphatase 76 (34-104) U/L Total Protein 7.7 (6.0-8.3) gm/dl Albumin 4.6 (3.4-5.0) gm/dl Globulin 3.1 (2.5-4.0) gm/dl Albumin/Globulin Ratio 1.5 (0.9-2) Procalcitonin < 0.05 (0-0.5) ng/ml Imaging Data Radiologist's Impression: Foot X-Ray 05/14/23 11:35 XR foot RT min 3V routine CLINICAL HISTORY: Right foot wounds. COMPARISON: MRI of the right foot October 19, 2022. Right foot radiographs November 02, 2022. FINDINGS: There are postoperative findings consistent with resection of the distal phalanx of the right first toe. Interval erosion of the distal aspect of the right first proximal phalanx is noted which compared to radiographs of November 02, 2022. Interval mild erosion of the distal tuft of the distal phalanx of the right second toe is also noted. No additional erosions are identified within the right foot. There is moderate vascular calcification. No radiopaque foreign bodies are present. There are no fractures. IMPRESSION: 1. Status post amputation of the distal phalanx of the right first toe. 2. Interval bony erosion of the distal aspect of the proximal phalanx of the right first toe. This suggests acute to subacute osteomyelitis. 3. Interval subtle erosion of the distal tuft of the distal phalanx of the right second toe suggestive of age indeterminate osteomyelitis. 4. No fractures within the right foot. ACT 112: Negative or not required by law. Electronically signed by: Rashid Aguilar M.D. 05/14/2023 12:09 PM MDM Narrative Patient was seen and evaluated as above in the triage room followed by the [facility] area in a separate private room. Review was performed of nursing notes and vital signs. I did review pertinent previous visits and patient history. After obtaining a thorough history and physical examination the above work up was performed. Patient presents to us today for evaluation of erythema to the dorsum of the right foot which appears to be originating from toes 1/2. He has a history of osteomyelitis. Options of care were discussed with the patient. IV access was established. Labs were drawn. Blood cultures were obtained. Labs reveal no leukocytosis or concerning anemia. No emergent metabolic disturbance. Lactate 2.2 which could be secondary to infection versus dehydration. IV fluids ordered. Glucose 140. Pro-Lars within normal range. X-ray was obtained revealing status post amputation of the distal phalanx of the right first toe. Interval bony erosion within the distal aspect of the proximal phalanx of the right first toe suggesting acute to subacute osteomyelitis and interval subtle erosion of the distal tuft of the distal phalanx of the right second toe suggestive of age- indeterminate osteomyelitis. No fracture within the right foot. At this time noting the patient's comorbidities and findings today I do believe that IV antibiotics and inpatient management is warranted. IV cefepime was ordered based on patient's previous culture results and sensitivities. Unfortunately there is no purulence or drainage at this time to sample for culture. Case discussed with the hospitalist service. Please refer to further documentation regarding his stay. In the evaluation and treatment of this patient the following differential diagnoses were entertained: Fracture, dislocation, subluxation, osteomyelitis, abscess, cellulitis, among others Impression & Plan Acute osteomyelitis of toe of right foot, Cellulitis of right foot Discharge Plan Visit Data Chief Complaint: Infection Stated Complaint: DIABETIC SORES, INFECTION, REF BY DOC ED Provider: Alisha Napoles ED Midlevel Provider: Michael Hernandez Discharge Problem: Acute osteomyelitis of toe of right foot, Cellulitis of right foot Patient Disposition: Admitted As Inpatient Condition: Good Forms Stand Alone Forms: My [facility], Important Visit Information Prescriptions Prescriptions: No Action itraconazole 100 mg capsule 200 mg PO .COMPLEX Qty: 120 0RF Rx Instructions: 200 mg orally Take 2 capsules 3 times a day for the first 3 days followed by 1 capsule on a daily basis; must administer with a meal/food naproxen sodium [Aleve] 220 mg Tablet 220 mg PO BID nicotine 7 mg/24 hr Patch 24 Hour 7 mg transdermal QAM Qty: 14 3RF amlodipine 5 mg tablet 5 mg PO DAILY metformin 500 mg tablet 500 mg PO BID simvastatin 10 mg tablet 10 mg PO HS Hold Instructions: While on Itraconazole losartan-hydrochlorothiazide 100-25 mg tablet 1 tab PO DAILY acetaminophen [Tylenol Extra Strength] 500 mg tablet 500 mg PO QID PRN (Reason: fever) Qty: 30 0RF Referrals Referrals: Vern Driscoll MD [Primary Care Provider] -
[2023-05-14] MEDS ORDERED: CEFEPIME 2,000 MG/20 ML VIAL IV STA (13:05)
[2023-05-14] MEDS ORDERED: SODIUM CHLORIDE 0.9% 1,000 ML IV SCH (13:15)
--- NOTE | 2023-05-14 14:21 | History & Physical Report ---
Date of Service May 14, 2023 Assessment & Plan (1) Acute osteomyelitis of toe of right foot: (2) Abscess of great toe, right: (3) Cellulitis of right foot: (4) Hyperlipemia: (5) HTN (hypertension): (6) DM II (diabetes mellitus, type II), controlled: (7) Osteomyelitis of right foot: (8) Diabetic foot infection: Plan Diabetic foot infection/recurrent osteomyelitis involving right foot- History of amputation of distal phalanx of right first toe in November 07 X-ray today showing osteomyelitis of proximal phalanx of right first toe, and likely involvement of distal phalanx of right second toe Ordering MRI foot for further assessment Previously had cultures growing pansensitive Pseudomonas Double cover with cefepime 2 g IV every 12 hours and levofloxacin 500 mg IV daily NSS + KCl 20 mill equivalents at 80 mL/h Status post 1 L normal saline bolus from the ED Arterial Dopplers on 10/20/2022 showed normal indices Consult podiatry Dr. Mcduffie Diabetes mellitus- Hold metformin Place on Accu-Cheks with SSI Hypertension- Hold losartan/HCTZ Continue amlodipine 10 mg daily History of Present Illness Chief Complaint: The patient presents to the emergency department with complaint of recurrence of a right foot infection, with history of ongoing wounds to toes, with now redness extending along the dorsum of the foot Primary Care Provider: Vern Driscoll MD The patient is a 39-year-old male with a past medical history including right foot osteomyelitis, histoplasma Pneumonia, Multiple Pulmonary Nodules, Diabetes Mellitus, Hyperlipidemia, Hypertension and Obesity. He Initially Underwent Evaluation in October for Right Great Toe Infection, and Had Amputation of the Distal Phalanx by Dr. Preston at That Time. Cultures at That Time Grew Pseudomonas That Was Pansensitive. He was recently seen at [place] emergency department, and was placed on clindamycin, and with worsening symptoms, who presented to the ED and identified assessment. X-ray of right foot shows amputation of distal phalanx of the right first toe, osteomyelitis of proximal phalanx right first toe, and suggestion of osteomyelitis of distal phalanx of right second toe. Allergies Allergy/AdvReac Type Severity Reaction Status Date / Time No Known Allergies Allergy Unverified 05/14/23 14:00 Home Medications Medication Instructions Recorded Confirmed Type simvastatin 10 mg tablet 10 mg PO HS 10/19/22 05/14/23 History acetaminophen 500 mg tablet 500 mg PO QID PRN fever #30 tabs 10/23/22 05/14/23 Rx (Tylenol Extra Strength) naproxen sodium 220 mg tablet 220 mg PO BID 11/02/22 05/14/23 History (Aleve) amlodipine 10 mg tablet 10 mg PO DAILY 05/14/23 05/14/23 History aspirin 81 mg tablet 81 mg PO DAILY 05/14/23 05/14/23 History chlorthalidone 25 mg tablet 25 mg PO DAILY 05/14/23 05/14/23 History losartan 100 mg tablet 100 mg PO DAILY 05/14/23 05/14/23 History metformin 500 mg tablet 0 mg PO DAILY 05/14/23 05/14/23 History Past Med/Surg History Medical History Hyperlipemia HTN (hypertension) DM II (diabetes mellitus, type II), controlled Surgical History H/O toe surgery Social History Smoking Status: Never smoker Tobacco Type: Smokeless Tobacco (Dip or Chew) Do You Dip or Chew Tobacco: Yes; Hx Alcohol Use: Yes Hx Substance Use: No Preferred Language: Romanian Communication Ability: Effective General Cleaner Required: No Beliefs That Will Affect Care: None Current Living Situation: Significant Other Current Living Situation Comment: patient living with significant other and patient's mother Feels Safe at Home: Yes Assistive Devices: Glasses Review of Systems Review of Systems: The patient denies chest pain, palpitations, shortness of breath, dyspnea on exertion, cough, lower extremity swelling, sore throat, fevers, chills, sweats, nausea, vomiting, diarrhea , constipation, abdominal pain, pelvic pain, blood in urine or stool, dysuria, urinary frequency or urgency, lightheadedness, dizziness, headache, memory loss, loss of consciousness, abnormal bruising or bleeding, focal or generalized weakness, numbness or tingling in arms or legs, generalized arthralgias or myalgias, back or neck pain, or night sweats. The review of systems is otherwise negative other than for that already noted above, and at least 10 systems have been reviewed. Physical Exam Physical Exam: The patient is awake, alert and oriented 3, well developed and well nourished, normocephalic and atraumatic, lying in bed and in no acute distress. HEENT--PERRL, EOMI, mucous membranes and oropharynx normal. Neck--supple. No JVD. No bruits. Thyroid normal, trachea midline, no adenopathy. Heart--normal S1 and S2. No murmurs, rubs or gallops. Lungs--clear bilaterally, no respiratory distress, no accessory muscle use. Abdomen--normal bowel sounds and soft. Nontender. Nondistended, no hernias or masses, no organomegaly. Extremities--right foot: Status post amputation distal phalanx of first toe. Erythema involving right second toe, and along the dorsum of right foot in MTP distribution Dermatologic--normal skin turgor, normal color, no abnormal lymph nodes, no rash. Neurologic--cranial nerves II through XII grossly intact. Rheumatologic--normal range of motion. Psychiatric--normal affect. Results & Data Results & Data Vital Signs (Past 12 Hours) Vital Signs Temp Pulse Pulse Resp BP BP Pulse Ox 05/14/23 13:47 96 H 18 144/96 H 98 05/14/23 13:47 98 H 05/14/23 11:33 36.9 C 98 H 18 143/96 H 99 O2 Del Method 05/14/23 13:47 Room Air 05/14/23 13:47 05/14/23 11:33 Room Air Laboratory Results Laboratory Results WBC 7.16 K/ul (4.8-10.8) 05/14/23 12:16 RBC 5.80 M/uL (4.70-6.10) 05/14/23 12:16 Hgb 17.7 g/dl (14.0-18.0) 05/14/23 12:16 Hct 49.5 % (42.0-52.0) 05/14/23 12:16 MCV 85.3 fL (80.0-100.0) 05/14/23 12:16 MCH 30.5 pg (25.0-34.0) 05/14/23 12:16 MCHC 35.8 g/dL (32.0-36.0) 05/14/23 12:16 RDW Std Deviation 38.5 fL (36.4-46.3) 05/14/23 12:16 RDW Coeff of Arcelia 12.4 % (11.5-14.5) 05/14/23 12:16 Plt Count 319 K/uL (130-400) 05/14/23 12:16 MPV 10.2 fL (9.4-12.4) 05/14/23 12:16 Immature Gran % (Auto) 0.1 % 05/14/23 12:16 Neut % (Auto) 71.7 % 05/14/23 12:16 Lymph % (Auto) 18.7 % 05/14/23 12:16 [place] % (Auto) 8.0 % 05/14/23 12:16 Eos % (Auto) 0.8 % 05/14/23 12:16 Baso % (Auto) 0.7 % 05/14/23 12:16 Neut # (Auto) 5.13 K/uL (1.40-6.50) 05/14/23 12:16 Lymph # (Auto) 1.34 K/uL (1.20-3.40) 05/14/23 12:16 [place] # (Auto) 0.57 K/uL (0.11-0.59) 05/14/23 12:16 Eos # (Auto) 0.06 K/uL (0.00-0.50) 05/14/23 12:16 Baso # (Auto) 0.05 K/uL (0.00-0.20) 05/14/23 12:16 Immature Gran # (Auto) 0.01 K/uL (0.01-0.20) 05/14/23 12:16 Sodium 136 mmol/L (136-145) 05/14/23 12:16 Potassium 3.6 mmol/L (3.5-5.1) 05/14/23 12:16 Chloride 99 mmol/L (98-107) 05/14/23 12:16 Carbon Dioxide 27 mmol/L (21-32) 05/14/23 12:16 Anion Gap 10 (3-11) 05/14/23 12:16 BUN 20 mg/dl (6-23) 05/14/23 12:16 Creatinine 1.15 mg/dl (0.6-1.4) 05/14/23 12:16 Est Cr Clr Drug Dosing 84.1 ml/min 05/14/23 12:16 Est GFR ( Amer) 86.7 ml/min 05/14/23 12:16 Est GFR (Non-Af Amer) 74.8 ml/min 05/14/23 12:16 BUN/Creatinine Ratio 17.4 (10-20) 05/14/23 12:16 Glucose 140 mg/dl (70-99(Fasting)) H 05/14/23 12:16 Lactate 2.2 mmol/L (0.4-2.0) H* 05/14/23 12:16 Calcium 10.3 mg/dl (8.6-10.3) 05/14/23 12:16 Total Bilirubin 1.0 mg/dl (0.2-1.0) 05/14/23 12:16 AST 24 U/L (13-39) 05/14/23 12:16 ALT 33 U/L (7-52) 05/14/23 12:16 Alkaline Phosphatase 76 U/L (34-104) 05/14/23 12:16 Total Protein 7.7 gm/dl (6.0-8.3) 05/14/23 12:16 Albumin 4.6 gm/dl (3.4-5.0) 05/14/23 12:16 Globulin 3.1 gm/dl (2.5-4.0) 05/14/23 12:16 Albumin/Globulin Ratio 1.5 (0.9-2) 05/14/23 12:16 Procalcitonin < 0.05 ng/ml (0-0.5) 05/14/23 12:16 Impressions Foot X-Ray 05/14/23 11:35 XR foot RT min 3V routine CLINICAL HISTORY: Right foot wounds. COMPARISON: MRI of the right foot October 19, 2022. Right foot radiographs November 02, 2022. FINDINGS: There are postoperative findings consistent with resection of the distal phalanx of the right first toe. Interval erosion of the distal aspect of the right first proximal phalanx is noted which compared to radiographs of November 02, 2022. Interval mild erosion of the distal tuft of the distal phalanx of the right second toe is also noted. No additional erosions are identified within the right foot. There is moderate vascular calcification. No radiopaque foreign bodies are present. There are no fractures. IMPRESSION: 1. Status post amputation of the distal phalanx of the right first toe. 2. Interval bony erosion of the distal aspect of the proximal phalanx of the right first toe. This suggests acute to subacute osteomyelitis. 3. Interval subtle erosion of the distal tuft of the distal phalanx of the right second toe suggestive of age indeterminate osteomyelitis. 4. No fractures within the right foot. ACT 112: Negative or not required by law. Electronically signed by: Rashid Aguilar M.D. 05/14/2023 12:09 PM Code Status & VTE Plan Code Status Full code VTE Prophylaxis Plan VTE Prophylaxis will be ordered: Yes PG Care Time/CCT Total # of Minutes Spent Total Time Spent with Patient: Total time spent is greater than 50% in coordination of care (as documented) at patient's floor/unit and/or counseling patient: Coding Level of Care Code 41522 INT INP/OBS CARE 3/75MIN Diagnoses Acute osteomyelitis of toe of right foot M86.171 Abscess of great toe, right L02.611 Cellulitis of right foot L03.115 Hyperlipemia E78.5 HTN (hypertension) I10 DM II (diabetes mellitus, type II), controlled E11.9 Osteomyelitis of right foot M86.9 Diabetic foot infection E11.628; L08.9
[2023-05-14] MEDS: levoFLOXacin/D5W 500 MG/100 ML BAG IV SCH (14:41)
[2023-05-14] MEDS ORDERED: CARBOHYDRATES FOR HYPOGLYCEMIA PO PRN (17:11)
[2023-05-14] MEDS ORDERED: GLUCOSE 40% GEL 15 GM TUBE PO PRN (17:11)
[2023-05-14] MEDS ORDERED: GLUCOSE 10 TAB/TUBE PO PRN (17:11)
[2023-05-14] MEDS ORDERED: GLUCAGON FOR INJ 1 MG VIAL SQ PRN (17:11)
[2023-05-14] MEDS ORDERED: ACETAMINOPHEN 325 MG TAB PO PRN (17:11)
[2023-05-14] MEDS ORDERED: ONDANSETRON INJ 2 MG/ML 2 ML VIAL IV PRN (17:11)
[2023-05-14] MEDS ORDERED: DEXTROSE 50% 50 ML SYRINGE IV PRN (17:11)
[2023-05-14] MEDS ORDERED: CEFEPIME 2,000 MG in SYRINGE 0 ML IV SCH ×2 (17:30→22:00)
[2023-05-14] MEDS ORDERED: fentaNYL citrate PF 100 MCG/2 ML VIAL ONE (17:36)
--- NOTE | 2023-05-14 17:45 | Anesthesiology Consultation ---
Date of Service May 14, 2023 Assessment & Plan (1) Encounter for pre-operative examination: Chart Review Chart Review: Acceptable Risk for Surgery (urgent procedure) History Surgery Operation Date: 05/14/23 18:15 Proposed Procedures p Right Foot First and Second Amputation Toe(Right) - Seth Mcduffie, DPM, MS Height/Weight Height: 5 ft 7 in Weight: 90 kg Allergies Allergy/AdvReac Type Severity Reaction Status Date / Time No Known Allergies Allergy Unverified 05/14/23 14:00 Medications Home Medications Medication Instructions Recorded Confirmed Last Taken simvastatin 10 mg tablet 10 mg PO HS 10/19/22 05/14/23 05/13/23 acetaminophen 500 mg tablet 500 mg PO QID PRN fever #30 tabs 10/23/22 05/14/23 Unknown (Tylenol Extra Strength) naproxen sodium 220 mg tablet 220 mg PO BID 11/02/22 05/14/23 11/02/22 (Aleve) amlodipine 10 mg tablet 10 mg PO DAILY 05/14/23 05/14/23 05/14/23 aspirin 81 mg tablet 81 mg PO DAILY 05/14/23 05/14/23 05/14/23 chlorthalidone 25 mg tablet 25 mg PO DAILY 05/14/23 05/14/23 05/14/23 losartan 100 mg tablet 100 mg PO DAILY 05/14/23 05/14/23 05/14/23 metformin 500 mg tablet 0 mg PO DAILY 05/14/23 05/14/23 05/14/23 Active Medications Generic Name Dose Route Start Last Admin Trade Name Freq PRN Reason Stop Dose Admin Levofloxacin/Dextrose 500 mg in 100 mls @ 100 mls/hr 05/14/23 14:00 05/14/23 15:45 Levaquin/D5w IV 06/25/23 13:59 Infused Q24H CATALINA Infusion Past Medical History Medical History Hyperlipemia HTN (hypertension) DM II (diabetes mellitus, type II), controlled Past Surgical History Surgical History H/O toe surgery Social History Smoking Status: Never smoker tobacco type: smokeless tobacco Do You Dip or Chew Tobacco: Yes Hx Alcohol Use: Yes alcohol intake frequency: holidays/special occasions only Hx Substance Use: No substance use type: does not use Physical Exam Vital Signs Last Vital Signs Temp 36.9 C 05/14/23 11:33 Pulse 92 H 05/14/23 16:14 Resp 18 05/14/23 16:14 BP 145/91 H 05/14/23 16:14 Pulse Ox 99 05/14/23 16:14 O2 Del Method Room Air 05/14/23 16:14 Testing Laboratory Results 05/14/23 12:16 05/14/23 12:16
[2023-05-14] MEDS ORDERED: BUPIVACAINE 0.5 % 5 MG/1 ML MPF 30ML VIAL ONE (17:58)
[2023-05-14] MEDS ORDERED: MIDAZOLAM HCL 1 MG/ML 2ML VIAL ONE (18:00)
--- NOTE | 2023-05-14 18:02 | Magnetic Resonance Report ---
MR foot RT w/o con HISTORY: 47 years-old Male osteomyelitis R 1st and 2nd toes, partial amp hx chronic right foot pain with probable osteomyelitis of the first and second toes. COMPARISON: Right foot radiographs of same day. MRI right foot 10/19/2022 TECHNIQUE: Multiplanar multisequence MRI of the right foot was obtained without use of IV contrast. FINDINGS: Status post amputation of the distal phalanx right first toe. Bony erosions with cortical irregularit y at the amputation site again noted with areas of decreased T1 and increased T2 marrow signal. There is additional cortical irregularity of the distal second phalanx with preserved T1 marrow signal. No acute fractures or dislocations. There is diffuse atrophy of the intrinsic musculature with deep tis tylor, intramuscular subcutaneous edema. Mild to moderate multifocal osteoarthritis. Abnormal thickenin g of the flexor hallucis tendon compatible with chronic tendinosis/tearing. IMPRESSION: 1. Prior amputation of the distal phalanx right great toe with findings suggestive of subacute osteom yelitis at the amputation stump. 2. Mild cortical irregularity of the second distal phalanx with preserved T1 and T2 marrow signal. Th is may be posttraumatic or represent sequela of chronic osteomyelitis. 3. Chronic denervation changes with nonspecific dorsal predominant subcutaneous edema. ACT 112: Negative or not required by law. The above report was generated using voice recognition software. It may contain grammatical, syntax o r spelling errors. Electronically signed by: Luis Miguel Stark M.D. 05/14/2023 6:00 PM
--- NOTE | 2023-05-14 18:06 | Orthopedic Consultation ---
Date of Consultation May 14, 2023 Assessment & Plan (1) Acute osteomyelitis of toe of right foot: Patient seen, evaluated in [facility]03 Reviewed x-ray and x-ray findings Reviewed MRI and MRI findings Reviewed osteomyelitis of first and second toes. Patient chooses for amputation of right first and second toes. All questions answered. Procedure to proceed as indicated. (2) Abscess of great toe, right: (3) Cellulitis of right foot: (4) Osteomyelitis of right foot: (5) Diabetic foot infection: History of Present Illness Attending Physician: Hair Moore MD History of Present Illness Patient is a 39-year-old male who is seen at bedside at [facility] Emergency department for right great toe and second toe. with a past medical history including right foot osteomyelitis, histoplasma Pneumonia, Multiple Pulmonary Nodules, Diabetes Mellitus, Hyperlipidemia, Hypertension and Obesity. He Initially Underwent Evaluation in October for Right Great Toe Infection, and Had Amputation of the Distal Phalanx by Dr. Preston at That Time. Cultures at That Time Grew Pseudomonas That Was Pansensitive. He was recently seen at [place] emergency department, and was placed on clindamycin, and with worsening symptoms, who presented to the ED and identified assessment. X-ray of right foot shows amputation of distal phalanx of the right first toe, osteomyelitis of proximal phalanx right first toe, and suggestion of osteomyelitis of distal phalanx of right second toe. Allergies Allergy/AdvReac Type Severity Reaction Status Date / Time No Known Allergies Allergy Unverified 05/14/23 14:00 Home Medications Medication Instructions Recorded Confirmed Type simvastatin 10 mg tablet 10 mg PO HS 10/19/22 05/14/23 History acetaminophen 500 mg tablet 500 mg PO QID PRN fever #30 tabs 10/23/22 05/14/23 Rx (Tylenol Extra Strength) naproxen sodium 220 mg tablet 220 mg PO BID 11/02/22 05/14/23 History (Aleve) amlodipine 10 mg tablet 10 mg PO DAILY 05/14/23 05/14/23 History aspirin 81 mg tablet 81 mg PO DAILY 05/14/23 05/14/23 History chlorthalidone 25 mg tablet 25 mg PO DAILY 05/14/23 05/14/23 History losartan 100 mg tablet 100 mg PO DAILY 05/14/23 05/14/23 History metformin 500 mg tablet 0 mg PO DAILY 05/14/23 05/14/23 History Patient History Medical History Hyperlipemia HTN (hypertension) DM II (diabetes mellitus, type II), controlled Surgical History H/O toe surgery Social History Smoking Status: Never smoker Tobacco Type: Smokeless Tobacco (Dip or Chew) Do You Dip or Chew Tobacco: Yes; Hx Alcohol Use: Yes Hx Substance Use: No Preferred Language: [place] Communication Ability: Effective Plastic Fabricator Required: No Beliefs That Will Affect Care: None Current Living Situation: Significant Other Current Living Situation Comment: patient living with significant other and patient's mother Feels Safe at Home: Yes Assistive Devices: Glasses Review of Systems Review of Systems: All systems reviewed & are unremarkable except as noted in HPI & below Physical Exam Constitutional: well developed, well nourished, cooperative and comfortable Eyes: normal visual dos santos by confrontation Neck: normal visual inspection and trachea midline Respiratory: normal respiratory effort and + respiratory distress Cardiovascular: Rate/Rhythm: regular rate and regular rhythm Musculoskeletal: Extremities: extremities normal to inspection and + amputation noted (Right first toe amputation) Neurologic: moves all extremities (Epicritic sensation) Psychiatric: Orientation: alert and oriented x 3 Results & Data Vital Signs (Past 12 Hours) Vital Signs Temp Pulse Pulse Resp BP BP Pulse Ox 05/14/23 16:14 92 H 18 145/91 H 99 05/14/23 15:17 93 H 18 149/95 H 99 05/14/23 13:47 96 H 18 144/96 H 98 05/14/23 13:47 98 H 05/14/23 11:33 36.9 C 98 H 18 143/96 H 99 O2 Del Method 05/14/23 16:14 Room Air 05/14/23 15:17 Room Air 05/14/23 13:47 Room Air 05/14/23 13:47 05/14/23 11:33 Room Air Diagnostic Findings [facility], [place] [phone] Magnetic Resonance Report Patient: MARTHA GRAHAM Admit Date: 05/14/23 MR#: [id number] Address1: [address] Acct ID:[id number] Address2: Date: 1975 [facility] Zip: [place] [address] Age: 47 Location: [facility] Sex: M Room/Bed: [facility] 1-4 Att Phy: Hair Moore MD Diagnosis: DIABETIC FOOT INFECTION, OSTEOMYELITIS Kimberli Phy: Vern Driscoll MD Service Date: 05/14/23 Fam Phy: Interpreting Phy: Luis Miguel StarkAdmit Phy: Hair Moore MD Ordering Phy: Hair Moore MD cc: ~ MR foot RT w/o con HISTORY: 47 years-old Male osteomyelitis R 1st and 2nd toes, partial amp hx chronic right foot pain with probable osteomyelitis of the first and second toes. COMPARISON: Right foot radiographs of same day. MRI right foot 10/19/2022 TECHNIQUE: Multiplanar multisequence MRI of the right foot was obtained without use of IV contrast. FINDINGS: Status post amputation of the distal phalanx right first toe. Bony erosions with cortical irregularity at the amputation site again noted with areas of decreased T1 and increased T2 marrow signal. There is additional cortical irregularity of the distal second phalanx with preserved T1 marrow signal. No acute fractures or dislocations. There is diffuse atrophy of the intrinsic musculature with deep tissue, intramuscular subcutaneous edema. Mild to moderate multifocal osteoarthritis. Abnormal thickening of the flexor hallucis tendon compatible with chronic tendinosis/tearing. IMPRESSION: 1. Prior amputation of the distal phalanx right great toe with findings suggestive of subacute osteomyelitis at the amputation stump. 2. Mild cortical irregularity of the second distal phalanx with preserved T1 and T2 marrow signal. This may be posttraumatic or represent sequela of chronic osteomyelitis. 3. Chronic denervation changes with nonspecific dorsal predominant subcutaneous edema. ACT 112: Negative or not required by law. The above report was generated using voice recognition software. It may contain grammatical, syntax or spelling errors. Electronically signed by: Luis Mgiuel Stark M.D. 05/14/2023 6:00 PM Dictated: 05/14/231753 Transcribed: 05/14/231753
[2023-05-14] MEDS ORDERED: ATROPINE SULFATE 0.1 MG/ML 10ML SYR IV PRN (18:23)
[2023-05-14] MEDS ORDERED: fentaNYL citrate PF 100 MCG/2 ML VIAL IV PRN (18:23)
[2023-05-14] MEDS ORDERED: LABETALOL HCL IV 5 MG/ML 20ML IV PRN (18:23)
--- NOTE | 2023-05-14 18:29 | History & Physical Bridge Note ---
Date of Service May 14, 2023 History & Physical Bridge Note I have examined the patient, reviewed the History & Physical and in the interval since the performance of the History & Physical I have noted the following changes of clinical significance: no changes noted
--- NOTE | 2023-05-14 19:18 | Post Operative Brief Note ---
Immediate Post Op Note v1 Date of Surgery May 14, 2023 Pre & Post Diagnosis Operation Date: 05/14/23 18:15 <No data on this case meets the specified criteria> I identified the patient and participated in the time-out.: Yes Procedure Operation Date: 05/14/23 18:15 <No data on this case meets the specified criteria> Surgeon Seth Mcduffie, JOSE [place], MS Roll Grinder Operator None Estimated Blood Loss 5 Findings Consistent with Post-Op Diagnosis consistent with pre operative diagnosis Specimens Right first and second toe - micro / pathology
--- NOTE | 2023-05-14 19:49 | Anesthesiology Progress Note ---
Date of Service May 14, 2023 Anesthesia Post Procedure Vital Signs Vital Signs: Temp Pulse Pulse Resp BP BP Pulse Ox 05/14/23 19:45 36.3 C L 91 H 20 122/89 94 05/14/23 19:35 77 15 122/85 97 05/14/23 19:25 84 16 124/85 92 05/14/23 19:19 36.6 C 86 16 131/86 95 05/14/23 18:02 36.7 C 94 H 18 153/101 H 98 05/14/23 16:14 92 H 18 145/91 H 99 05/14/23 15:17 93 H 18 149/95 H 99 05/14/23 13:47 96 H 18 144/96 H 98 05/14/23 13:47 98 H 05/14/23 11:33 36.9 C 98 H 18 143/96 H 99 O2 Del Method 05/14/23 19:45 Room Air 05/14/23 19:35 Room Air 05/14/23 19:25 Room Air 05/14/23 19:19 Room Air 05/14/23 18:02 Room Air 05/14/23 16:14 Room Air 05/14/23 15:17 Room Air 05/14/23 13:47 Room Air 05/14/23 13:47 05/14/23 11:33 Room Air Pain Intensity Right 2nd Digit Toe: Pain Intensity: 2 Transfer of Care Handoff Completed per policy Notes Mental Status: alert / awake / arousable Patient Amnestic to Procedure: Yes Nausea / Vomiting: adequately controlled Pain: adequately controlled Airway Patency, RR, SpO2: stable & adequate BP & HR: stable & adequate Hydration State: stable & adequate Anesthetic Complications: no major complications apparent
[2023-05-14] MEDS: SIMVASTATIN 10 MG TAB PO SCH (20:27)
[2023-05-14] MEDS: NSS + 20MEQ KCL 20 MEQ/1,000 ML BAG IV SCH (20:27)
--- NOTE | 2023-05-14 20:39 | Operative Report ---
Post Operative Report Pre & Post Diagnosis Operation Date: 05/14/23 18:15 Pre-Op Diagnosis: osteomylitis Post-Op Diagnosis: osteomylitis I identified the patient and participated in the time-out.: Yes Procedure Operation Date: 05/14/23 18:15 Actual Procedures p Right Foot First and Second Toe Amputation(Right) - Seth Mcduffie DPM, MS Surgeon Seth Mcduffie DPM, MS Hat Band Attacher None Estimated Blood Loss 5 Findings Consistent with Post-Op Diagnosis Consistent with pre operative diagnosis Specimens Right great toe, second toe - microbiology / pathology Description of Procedure History of present illness: Patient is a type II diabetic, 47 year old male who is seen for treatment of Right great toe and second toe osteomyelitis. Patient presents to [facility] emergency department from PCP office over concern over worsening edema and erythema. While in [facility] ED both plain film and MRI reveal osteomyelitis in the first and second toes of the right foot. Patient has a prior history of toe amputations secondary to osteomyelitis. All questions answered. Discussed procedure in detail and postoperative recovery. All potential risks, benefits, complications, alternatives, rehab, potential for incomplete relief of symptoms, need for further surgery, DVT, PE, , persistent pain, swelling, scarring, weakness, neurovascular, wound complications, and potential for amputations were discussed with patient. Unwanted outcomes such as, but not limited to were reviewed including under co rrection, overcorrection, return of deformity, infection. All questions were answered. Patient has decided to proceed with procedure as indicated. Preoperative diagnosis: 1.) Osteomyelitis of the right hallux 2.) Osteomyelitis of the right second toe Postoperative diagnosis: same Name of operation: 1.) Amputation right great toe 2.) Amputation right second toe Surgeon Dr. Mcduffie Hat Band Attacher: None Anesthesia: local with monitored anesthesia care Hemostasis: None Estimated blood loss: 5ml Procedure in detail: Under mild sedation the patient was brought in the operating room placed on the operating table in supine position. Following IV sedation local anesthesia was obtained about the right foot utilizing 20 cc of 1% lidocaine plain. The foot was then prepped scrubbed and draped in usual aseptic manner. Attention was then directed to the right great toe. A fishmouth incision was created utilizing a sharp, sterile, #15 blade. The incision which was deepened through subcutaneous tissue using sharp blunt dissection. Care was taken to identify and retract all vital neurovascular structures. All bleeders were ligated and cauterized necessary. At this time the right hallux was removed at the metatarsal phalangeal joint. Copious amounts of sterile normal saline were utilized to flush the incision site. Attention was then directed to the right second toe. A fishmouth incision was created utilizing a sharp, sterile, #15 blade. The incision which was deepened through subcutaneous tissue using sharp blunt dissection. Care was taken to identify and retract all vital neurovascular structures. All bleeders were ligated and cauterized necessary. At this time the right second toe was removed at the metatarsal phalangeal joint. Copious amounts of sterile normal saline were utilized to flush the incision site. Both the right hallux and second toe are sent to microbiology then pathology. The skin was then primarily closed utilizing 3-0 nylon in horizontal suture mattress techniques as well as simple suture closure. Upon completion of the procedure the incisions were dressed with Adaptic followed by sterile compressive dressing consisting of 4 x 4's, Adams, Kerlix, ABD. An keisha wrap was then applied. The Patient tolerated the procedure and anesthesia well. He was transferred to recovery room vital signs stable. Following a period of post o perative monitoring the Patient will be admitted to the floor. I attest to the content of the Intraoperative Record and any orders documented therein. Any exceptions are noted below.
[2023-05-14] MEDS: INSULIN ASPART PER UNIT CHARGE SC SCH ×2 (21:17→21:27)
[2023-05-14] MEDS: CEFEPIME 2,000 MG in SYRINGE 0 ML IV SCH (22:17)
[2023-05-15] MEDS: CEFEPIME 2,000 MG in SYRINGE 0 ML IV SCH ×3 (05:42→21:06)
[2023-05-15] MEDS: NSS + 20MEQ KCL 20 MEQ/1,000 ML BAG IV SCH (06:13)
[2023-05-15 07:22] LABS: Basophils # (auto) 0.05 K/uL (0.00-0.20); Basophils % (auto) 0.8 %; Eosinophils # (auto) 0.06 K/uL (0.00-0.50); Hematocrit (blood only) 43.8 % (42.0-52.0); Hemoglobin 15.6 g/dl (14.0-18.0); Immature Granulocytes # (auto) 0.02 K/uL (0.01-0.20); Immature Granulocytes % (auto) 0.3 %; Lymphocytes # (auto) 0.95 K/uL (1.20-3.40); Lymphocytes % (auto) 15.2 %; Mean Corpuscular Hemoglobin 30.5 pg (25.0-34.0); Mean Corpuscular Hgb Conc 35.6 g/dL (32.0-36.0); Mean Corpuscular Volume 85.7 fL (80.0-100.0); Monocytes # (auto) 0.62 K/uL (0.11-0.59); Monocytes % (auto) 9.9 %; Neutrophils # (auto) 4.55 K/uL (1.40-6.50); Neutrophils % (auto) 72.8 %; Platelet Count 250 K/uL (130-400); RDW Coefficient of Variation 12.3 % (11.5-14.5); RDW Standard Deviation 38.9 fL (36.4-46.3); Red Blood Count 5.11 M/uL (4.70-6.10); White Blood Count 6.25 K/ul (4.8-10.8)
[2023-05-15 07:40] LABS: Albumin Globulin Ratio 1.4 (0.9-2); Albumin Level 3.9 gm/dl (3.4-5.0); BUN Creatinine Ratio 17.4 (10-20); Bilirubin,Total 0.9 mg/dl (0.2-1.0); Calcium 9.3 mg/dl (8.6-10.3); Creatinine Clr Calc Pharmacy 84.1 ml/min; Est GFR (African American) 86.7 ml/min; Est GFR (Non-African American) 74.8 ml/min; Globulin 2.7 gm/dl (2.5-4.0); Magnesium 1.5 mg/dl (1.7-2.4); Potassium 3.8 mmol/L (3.5-5.1); Total Protein 6.6 gm/dl (6.0-8.3)
--- NOTE | 2023-05-15 07:59 | Hospitalist Progress Note ---
Date of Service May 15, 2023 Assessment & Plan (1) Acute osteomyelitis of toe of right foot: Plan: Diabetic foot infection/recurrent osteomyelitis involving right foot- History of amputation of distal phalanx of right first toe in November 07 Previously had cultures growing pansensitive Pseudomonas Arterial Dopplers on 10/20/2022 showed normal indices X-ray today showing osteomyelitis of proximal phalanx of right first toe, and likely involvement of distal phalanx of right second toe Ordered MRI foot for further assessment * 1. Prior amputation of the distal phalanx right great toe with findings suggestive of subacute osteomyelitis at the amputation stump. * 2. Mild cortical irregularity of the second distal phalanx with preserved T1 and T2 marrow signal. This may be posttraumatic or represent sequela of chronic osteomyelitis. 05/15 IV abx: Cefepime 2 g IV every 12 hours and levofloxacin 500 mg IV daily Podiatry consulted p Right Foot First and Second Toe Amputation(Right) - Seth Mcduffie, [place], [place] Pathology from OR pending IVF ordered, now can dc Blood cultures NGTD WBC wnl, afebrile Pain control ID consulted PT/OT consults, ordered NWB RLE until otherwise instructed by podiatry (able to be heel weight bearing, adjusted order). Rx to CM for wheeled walker. Patient hopeful for dc this weekend (possible tomorrow) (2) Abscess of great toe, right: Plan: as above, s/p amputation. cx/pathology per podiatry pending (3) Cellulitis of right foot: Plan: improved w/ abx, continued (4) HTN (hypertension): Plan: BP 155/81 at present Will resume losartan 100mg daily for today IVF discontinued, if keeping up w/ PO intake plan to resume HCTZ in AM (5) Hyperlipemia: Plan: continue simvastatin (6) DM II (diabetes mellitus, type II), controlled: Plan: A1c 5.7 in October, holding home metformin. A1c 6.7 BSG ACHS, sliding scale while inpatient. will tighten parameters for today w/ IV mag/dextrose infusion for tighter control Monitor BSGs Hypomagnesemia Mag 1.5-- IV replacement ordered and will monitor w/ AM labs (7) Osteomyelitis of right foot: (8) Diabetic foot infection: Plan continued inpatient stay f/u pathology, ID consulted, PT/OT pending possible dc tomorrow vs Thursday, likely will need home health (will need dressing change orders by podiatry) Admission and Anticipated Discharge Date Admission Date: May 14, 2023 Supervising Physician Co-Signing Physician Notes The patient was not seen by me. The chart was reviewed. Case discussed with JS Vasquez. Agree with assessment and plan Subjective Eval this afternoon around lunch. Feeling well, hopeful dc tomorrow. Not yet seen by therapy, rx given to CM for wheeled walker. Cultures negative to date. Will arrange for HH for dressing changes per Dr Mcduffie's office. Physical Exam Physical Exam: General: WD/WN male sitting up in bed, SO at bedside, NAD HEENT: head normocephalic, atraumatic, mmm, trachea midline Resp: even/unlabored, no w/c/r, on room air CV: RRR, no significant mrg, no pitting edema/calf tenderness, cap refill wnl GI: +BS, soft/NT ; no mohan MSK/Neuro: dressing to RIGHT foot, c/d/i (not removed as post-op dressing), cap refill wnl, able to wiggle toes Psych: aox3, cooperative with exam Results & Data Results & Data Vital Signs (Past 12 Hours) Vital Signs Temp Pulse Pulse Resp BP BP Pulse Ox 05/15/23 03:43 36.6 C 80 18 136/92 93 05/14/23 23:20 37 C 77 18 122/78 93 05/14/23 23:06 36.8 C 75 18 147/76 H 97 05/14/23 21:44 90 05/14/23 21:05 36.4 C L 86 18 142/103 H 05/14/23 21:05 05/14/23 20:45 85 14 113/83 97 05/14/23 20:30 94 H 14 127/83 97 05/14/23 20:15 86 13 119/88 95 05/14/23 20:00 87 15 119/85 96 Pulse Ox O2 Del Method O2 Del Method 05/15/23 03:43 Room Air 05/14/23 23:20 Room Air 05/14/23 23:06 Room Air 05/14/23 21:44 05/14/23 21:05 05/14/23 21:05 97 Room Air 05/14/23 20:45 Room Air 05/14/23 20:30 Room Air 05/14/23 20:15 Room Air 05/14/23 20:00 Room Air Laboratory Results 05/15/23 05/15/23 05/14/23 Range/Units 07:18 07:02 21:20 WBC 6.25 (4.8-10.8) K/ul RBC 5.11 (4.70-6.10) M/uL Hgb 15.6 (14.0-18.0) g/dl Hct 43.8 (42.0-52.0) % MCV 85.7 (80.0-100.0) fL MCH 30.5 (25.0-34.0) pg MCHC 35.6 (32.0-36.0) g/dL RDW Std Deviation 38.9 (36.4-46.3) fL RDW Coeff of Arcelia 12.3 (11.5-14.5) % Plt Count 250 (130-400) K/uL MPV 10.0 (9.4-12.4) fL Immature Gran % (Auto) 0.3 % Neut % (Auto) 72.8 % Lymph % (Auto) 15.2 % [place] % (Auto) 9.9 % Eos % (Auto) 1.0 % Baso % (Auto) 0.8 % Neut # (Auto) 4.55 (1.40-6.50) K/uL Lymph # (Auto) 0.95 L (1.20-3.40) K/uL [place] # (Auto) 0.62 H (0.11-0.59) K/uL Eos # (Auto) 0.06 (0.00-0.50) K/uL Baso # (Auto) 0.05 (0.00-0.20) K/uL Immature Gran # (Auto) 0.02 (0.01-0.20) K/uL Sodium 137 (136-145) mmol/L Potassium 3.8 (3.5-5.1) mmol/L Chloride 103 (98-107) mmol/L Carbon Dioxide 28 (21-32) mmol/L Anion Gap 6 (3-11) BUN 20 (6-23) mg/dl Creatinine 1.15 (0.6-1.4) mg/dl Est Cr Clr Drug Dosing 84.1 ml/min Est GFR ( Amer) 86.7 ml/min Est GFR (Non-Af Amer) 74.8 ml/min BUN/Creatinine Ratio 17.4 (10-20) Glucose 139 H (70-99(Fasting)) mg/dl POC Glucose 128 H 147 H (70-99) mg/dl Estimat Average Glucose Pending Hemoglobin A1c Pending Lactate (0.4-2.0) mmol/L Calcium 9.3 (8.6-10.3) mg/dl Magnesium 1.5 L (1.7-2.4) mg/dl Total Bilirubin 0.9 (0.2-1.0) mg/dl AST 18 (13-39) U/L ALT 26 (7-52) U/L Alkaline Phosphatase 63 (34-104) U/L Total Protein 6.6 (6.0-8.3) gm/dl Albumin 3.9 (3.4-5.0) gm/dl Globulin 2.7 (2.5-4.0) gm/dl Albumin/Globulin Ratio 1.4 (0.9-2) Procalcitonin (0-0.5) ng/ml 05/14/23 05/14/23 05/14/23 Range/Units 19:23 18:26 14:13 WBC (4.8-10.8) K/ul RBC (4.70-6.10) M/uL Hgb (14.0-18.0) g/dl Hct (42.0-52.0) % MCV (80.0-100.0) fL MCH (25.0-34.0) pg MCHC (32.0-36.0) g/dL RDW Std Deviation (36.4-46.3) fL RDW Coeff of Arcelia (11.5-14.5) % Plt Count (130-400) K/uL MPV (9.4-12.4) fL Immature Gran % (Auto) % Neut % (Auto) % Lymph % (Auto) % [place] % (Auto) % Eos % (Auto) % Baso % (Auto) % Neut # (Auto) (1.40-6.50) K/uL Lymph # (Auto) (1.20-3.40) K/uL [place] # (Auto) (0.11-0.59) K/uL Eos # (Auto) (0.00-0.50) K/uL Baso # (Auto) (0.00-0.20) K/uL Immature Gran # (Auto) (0.01-0.20) K/uL Sodium (136-145) mmol/L Potassium (3.5-5.1) mmol/L Chloride (98-107) mmol/L Carbon Dioxide (21-32) mmol/L Anion Gap (3-11) BUN (6-23) mg/dl Creatinine (0.6-1.4) mg/dl Est Cr Clr Drug Dosing ml/min Est GFR ( Amer) ml/min Est GFR (Non-Af Amer) ml/min BUN/Creatinine Ratio (10-20) Glucose (70-99(Fasting)) mg/dl POC Glucose 91 117 H (70-99) mg/dl Estimat Average Glucose Hemoglobin A1c Lactate 3.0 H* (0.4-2.0) mmol/L Calcium (8.6-10.3) mg/dl Magnesium (1.7-2.4) mg/dl Total Bilirubin (0.2-1.0) mg/dl AST (13-39) U/L ALT (7-52) U/L Alkaline Phosphatase (34-104) U/L Total Protein (6.0-8.3) gm/dl Albumin (3.4-5.0) gm/dl Globulin (2.5-4.0) gm/dl Albumin/Globulin Ratio (0.9-2) Procalcitonin (0-0.5) ng/ml 05/14/23 Range/Units 12:16 WBC 7.16 (4.8-10.8) K/ul RBC 5.80 (4.70-6.10) M/uL Hgb 17.7 (14.0-18.0) g/dl Hct 49.5 (42.0-52.0) % MCV 85.3 (80.0-100.0) fL MCH 30.5 (25.0-34.0) pg MCHC 35.8 (32.0-36.0) g/dL RDW Std Deviation 38.5 (36.4-46.3) fL RDW Coeff of Arcelia 12.4 (11.5-14.5) % Plt Count 319 (130-400) K/uL MPV 10.2 (9.4-12.4) fL Immature Gran % (Auto) 0.1 % Neut % (Auto) 71.7 % Lymph % (Auto) 18.7 % [place] % (Auto) 8.0 % Eos % (Auto) 0.8 % Baso % (Auto) 0.7 % Neut # (Auto) 5.13 (1.40-6.50) K/uL Lymph # (Auto) 1.34 (1.20-3.40) K/uL [place] # (Auto) 0.57 (0.11-0.59) K/uL Eos # (Auto) 0.06 (0.00-0.50) K/uL Baso # (Auto) 0.05 (0.00-0.20) K/uL Immature Gran # (Auto) 0.01 (0.01-0.20) K/uL Sodium 136 (136-145) mmol/L Potassium 3.6 (3.5-5.1) mmol/L Chloride 99 (98-107) mmol/L Carbon Dioxide 27 (21-32) mmol/L Anion Gap 10 (3-11) BUN 20 (6-23) mg/dl Creatinine 1.15 (0.6-1.4) mg/dl Est Cr Clr Drug Dosing 84.1 ml/min Est GFR ( Amer) 86.7 ml/min Est GFR (Non-Af Amer) 74.8 ml/min BUN/Creatinine Ratio 17.4 (10-20) Glucose 140 H (70-99(Fasting)) mg/dl POC Glucose (70-99) mg/dl Estimat Average Glucose Hemoglobin A1c Lactate 2.2 H* (0.4-2.0) mmol/L Calcium 10.3 (8.6-10.3) mg/dl Magnesium (1.7-2.4) mg/dl Total Bilirubin 1.0 (0.2-1.0) mg/dl AST 24 (13-39) U/L ALT 33 (7-52) U/L Alkaline Phosphatase 76 (34-104) U/L Total Protein 7.7 (6.0-8.3) gm/dl Albumin 4.6 (3.4-5.0) gm/dl Globulin 3.1 (2.5-4.0) gm/dl Albumin/Globulin Ratio 1.5 (0.9-2) Procalcitonin < 0.05 (0-0.5) ng/ml Diagnostic Findings Foot X-Ray 05/14/23 11:35 XR foot RT min 3V routine CLINICAL HISTORY: Right foot wounds. COMPARISON: MRI of the right foot October 19, 2022. Right foot radiographs November 02, 2022. FINDINGS: There are postoperative findings consistent with resection of the distal phalanx of the right first toe. Interval erosion of the distal aspect of the right first proximal phalanx is noted which compared to radiographs of November 02, 2022. Interval mild erosion of the distal tuft of the distal phalanx of the right second toe is also noted. No additional erosions are identified within the right foot. There is moderate vascular calcification. No radiopaque foreign bodies are present. There are no fractures. IMPRESSION: 1. Status post amputation of the distal phalanx of the right first toe. 2. Interval bony erosion of the distal aspect of the proximal phalanx of the right first toe. This suggests acute to subacute osteomyelitis. 3. Interval subtle erosion of the distal tuft of the distal phalanx of the right second toe suggestive of age indeterminate osteomyelitis. 4. No fractures within the right foot. ACT 112: Negative or not required by law. Electronically signed by: Rashid Aguilar M.D. 05/14/2023 12:09 PM Foot MRI 05/14/23 13:59 MR foot RT w/o con HISTORY: 47 years-old Male osteomyelitis R 1st and 2nd toes, partial amp hx chronic right foot pain with probable osteomyelitis of the first and second toes. COMPARISON: Right foot radiographs of same day. MRI right foot 10/19/2022 TECHNIQUE: Multiplanar multisequence MRI of the right foot was obtained without use of IV contrast. FINDINGS: Status post amputation of the distal phalanx right first toe. Bony erosions with cortical irregularity at the amputation site again noted with areas of decreased T1 and increased T2 marrow signal. There is additional cortical irregularity of the distal second phalanx with preserved T1 marrow signal. No acute fractures or dislocations. There is diffuse atrophy of the intrinsic musculature with deep tissue, intramuscular subcutaneous edema. Mild to moderate multifocal osteoarthritis. Abnormal thickening of the flexor hallucis tendon compatible with chronic tendinosis/tearing. IMPRESSION: 1. Prior amputation of the distal phalanx right great toe with findings suggestive of subacute osteomyelitis at the amputation stump. 2. Mild cortical irregularity of the second distal phalanx with preserved T1 and T2 marrow signal. This may be posttraumatic or represent sequela of chronic osteomyelitis. 3. Chronic denervation changes with nonspecific dorsal predominant subcutaneous edema. ACT 112: Negative or not required by law. The above report was generated using voice recognition software. It may contain grammatical, syntax or spelling errors. Electronically signed by: Luis Miguel Stark M.D. 05/14/2023 6:00 PM PG Care Time/CCT Total # of Minutes Spent Total Time Spent with Patient: Total time spent is greater than 50% in coordination of care (as documented) at patient's floor/unit and/or counseling patient: Coding Level of Care Code 55887 SUB INP/OBS CARE 3/50MIN Diagnoses Acute osteomyelitis of toe of right foot M86.171 Abscess of great toe, right L02.611 Cellulitis of right foot L03.115 HTN (hypertension) I10 Hyperlipemia E78.5 DM II (diabetes mellitus, type II), controlled E11.9 Osteomyelitis of right foot M86.9 Diabetic foot infection E11.628; L08.9
[2023-05-15] MEDS: INSULIN ASPART PER UNIT CHARGE SC SCH ×4 (08:05→20:54)
[2023-05-15] MEDS: MAGNESIUM SULFATE / D5W 1 GM/100 ML BAG IV SCH ×3 (08:34→12:13)
[2023-05-15] MEDS ORDERED: PNEUMOCOCCAL VACCINE (PCV20) 20-VAL CONJ-DIP CRM/PF 0.5 ML SYR IM ONE (09:00)
[2023-05-15 09:29] LABS: Estimated Average Glucose 146 mg/dl; Hemoglobin A1C 6.7 % (4.5-5.6)
--- NOTE | 2023-05-15 11:06 | Electrocardiogram Report ---
Test Reason : Blood Pressure : / mmHG Vent. Rate : 091 BPM Atrial Rate : 091 BPM P-R Int : 132 ms QRS Dur : 090 ms QT Int : 398 ms P-R-T Axes : 036 024 154 degrees QTc Int : 489 ms Normal sinus rhythm Inferior infarct , age undetermined T wave abnormality, consider lateral ischemia Abnormal ECG When compared with ECG of 19-OCT-2022 13:40, QT has lengthened Confirmed by Jai Marti ([id number]) on 05/15/2023 11:05:36 AM Referred By: REFERRED SELF Confirmed By:Jude Marti
[2023-05-15] MEDS: LOSARTAN POTASSIUM 50 MG TAB PO SCH (13:26)
[2023-05-15] MEDS: levoFLOXacin/D5W 500 MG/100 ML BAG IV SCH (14:16)
--- NOTE | 2023-05-15 15:31 | Infectious Disease Consult ---
Date of Consultation May 15, 2023 Assessment & Plan (1) Acute osteomyelitis of toe of right foot: (2) Cellulitis of right foot: (3) DM II (diabetes mellitus, type II), controlled: Plan Micro: 05/14 BCx x2: NGTD 11/03/22 R great toe distal OR culture: Pseudomonas aeruginosa (alexis-sensitive) Abx: Cefepime 05/14 - present Levofloxacin 05/14 - present Problems: #R 1st toe stump and 2nd toe osteomyelitis s/p amputation 05/14 #DM2 #History of R great toe osteomyelitis s/p amputation (10/21/22) and revision (11/03/22) 39 yo M with history of DM2, HTN, R great toe osteomyelitis s/p amputation (10/21/22) and revision (11/03/22), histoplasma pneumonia who presented on 05/14 with complaint of recurrent R foot infection and erythema, admitted with R 1st toe stump and 2nd toe osteomyelitis, s/p 1st and 2nd toe amputations (05/14) with presumed surgical cure. He had recently presented to an outside ED and was prescribed clindamycin, which he has been on 3 days with worsening symptoms. On presentation, patient was afebrile, VSS. Exam showed erythema involving right second toe and along the dorsum of right foot. Labs showed WBC 7.16, lactate 3. MRI right foot showed prior amputation of the distal phalanx right great toe with findings suggestive of a subacute osteomyelitis at the amputation stump, mild cortical irregularity of the second distal phalanx with preserved T1 and T2 marrow signal, may be posttraumatic or represent sequela of chronic osteomyelitis. Podiatry took the patient to the OR on 05/14 and performed right foot first and second toe amputations. Dr. Mcduffie of podiatry feels that surgical cure was obtained. No cultures were sent from the OR. Pathology is pending. Recommendations: -Given Dr. Mcduffie's report of surgical cure of osteomyelitis with amputation, will be able to give shorter course of PO antibiotics to treat any residual skin/soft tissue infection. Unfortunately, no cultures were sent from the OR, so will have to cover empirically. -Can continue cefepime. Added vancomycin -Discontinued levofloxacin for now, given overlap in coverage with cefepime -When pt ready for discharge, can transition to doxycycline 100 mg PO BID plus levofloxacin 750 mg PO q24h to complete a total 7-10 day course (from day 1 on 07/15) Will sign off. Please page [facility] with further questions. Consultation Information This patient recommendation is based on a telemedicine consult request which was completed asynchronously through chart review and information provided by the primary physician. The patient was not seen or examined today. The evaluation is consultative in nature and all patient care and treatment decisions can either be accepted or rejected by the patient's primary hospital-based treating physician using their own independent medical judgment for their patient. Unable to see patient by video due to lack of telepresenter availability Nozzle And Sleeve Worker contact information: Please call [facility] [phone]. (Phone Number For Physician Use Only) Time Spent Reviewing Chart: 31+ minutes History of Present Illness Reason for Consultation: Foot osteomyelitis s/p amputation Attending Physician: Navdeep Stapleton MD History of Present Illness 39 yo M with history of DM2, HTN, R great toe osteomyelitis s/p amputation (10/21/22) and revision (11/03/22), histoplasma pneumonia who presented on 05/14 with complaint of recurrent R foot infection, with erythema extending along the foot. He had presented to an outside ED and was prescribed clindamycin, which he has been on 3 days with worsening symptoms. On presentation, patient was afebrile, VSS. Exam showed erythema involving right second toe and along the dorsum of right foot and MTP distribution. Labs showed WBC 7.16, lactate 3. MRI right foot showed prior amputation of the distal phalanx right great toe with findings suggestive of a subacute osteomyelitis at the amputation stump, mild cortical irregularity of the second distal phalanx with preserved T1 and T2 marrow signal, may be posttraumatic or represent sequela of chronic osteomyelitis. Podiatry took the patient to the OR on 05/14 and performed right foot first and second toe amputations. Dr. Mcduffie of podiatry feels that surgical cure was obtained. No cultures were sent from the OR. Pathology is pending. Allergies Allergy/AdvReac Type Severity Reaction Status Date / Time No Known Allergies Allergy Unverified 05/14/23 14:00 Home Medications Medication Instructions Recorded Confirmed Type simvastatin 10 mg tablet 10 mg PO HS 10/19/22 05/14/23 History acetaminophen 500 mg tablet 500 mg PO QID PRN fever #30 tabs 06/08/23 12/28/23 Rx (Tylenol Extra Strength) naproxen sodium 220 mg tablet 220 mg PO BID 11/02/22 05/14/23 History (Aleve) amlodipine 10 mg tablet 10 mg PO DAILY 05/14/23 05/14/23 History aspirin 81 mg tablet 81 mg PO DAILY 05/14/23 05/14/23 History chlorthalidone 25 mg tablet 25 mg PO DAILY 05/14/23 05/14/23 History losartan 100 mg tablet 100 mg PO DAILY 05/14/23 05/14/23 History metformin 500 mg tablet 0 mg PO DAILY 05/14/23 05/14/23 History Patient History Medical History Hyperlipemia HTN (hypertension) DM II (diabetes mellitus, type II), controlled Surgical History H/O toe surgery Social History Smoking Status: Never smoker Tobacco Type: Smokeless Tobacco (Dip or Chew) Second Hand Exposure: No; Do You Dip or Chew Tobacco: Yes; Hx Alcohol Use: Yes Alcohol type: beer Hx Substance Use: No Preferred Language: Yi Communication Ability: Effective Taximeter Repairer Required: No Beliefs That Will Affect Care: None Current Living Situation: Significant Other Current Living Situation Comment: patient living with significant other and patient's mother Feels Safe at Home: Yes Assistive Devices: None Review of System Patient not seen Physical Exam Physical Exam: Patient not seen Results & Data Vital Signs (Past 12 Hours) Vital Signs Temp Pulse Pulse Resp BP BP Pulse Ox 05/15/23 14:59 36.8 C 93 H 18 123/97 97 05/15/23 12:05 36.9 C 86 18 155/81 H 96 05/15/23 08:00 92 H 05/15/23 08:00 36.3 C L 93 H 18 146/76 H 96 05/15/23 03:43 36.6 C 80 18 136/92 93 O2 Del Method 05/15/23 14:59 Room Air 05/15/23 12:05 Room Air 05/15/23 08:00 05/15/23 08:00 Room Air 05/15/23 03:43 Room Air Laboratory Results Short CBC 05/15/23 Range/Units 07:02 WBC 6.25 (4.8-10.8) K/ul Hgb 15.6 (14.0-18.0) g/dl Hct 43.8 (42.0-52.0) % Plt Count 250 (130-400) K/uL BMP 05/15/23 07:02 Sodium 137 Potassium 3.8 Chloride 103 Carbon Dioxide 28 BUN 20 Creatinine 1.15 Glucose 139 H Calcium 9.3 Liver Function 05/15/23 Range/Units 07:02 Total Bilirubin 0.9 (0.2-1.0) mg/dl AST 18 (13-39) U/L ALT 26 (7-52) U/L Alkaline Phosphatase 63 (34-104) U/L Albumin 3.9 (3.4-5.0) gm/dl Diagnostic Findings Foot X-Ray 05/14/23 11:35 XR foot RT min 3V routine CLINICAL HISTORY: Right foot wounds. COMPARISON: MRI of the right foot October 19, 2022. Right foot radiographs November 02, 2022. FINDINGS: There are postoperative findings consistent with resection of the distal phalanx of the right first toe. Interval erosion of the distal aspect of the right first proximal phalanx is noted which compared to radiographs of November 02, 2022. Interval mild erosion of the distal tuft of the distal phalanx of the right second toe is also noted. No additional erosions are identified within the right foot. There is moderate vascular calcification. No radiopaque foreign bodies are present. There are no fractures. IMPRESSION: 1. Status post amputation of the distal phalanx of the right first toe. 2. Interval bony erosion of the distal aspect of the proximal phalanx of the right first toe. This suggests acute to subacute osteomyelitis. 3. Interval subtle erosion of the distal tuft of the distal phalanx of the right second toe suggestive of age indeterminate osteomyelitis. 4. No fractures within the right foot. ACT 112: Negative or not required by law. Electronically signed by: Rashid Aguilar M.D. 05/14/2023 12:09 PM Foot MRI 05/14/23 13:59 MR foot RT w/o con HISTORY: 47 years-old Male osteomyelitis R 1st and 2nd toes, partial amp hx chronic right foot pain with probable osteomyelitis of the first and second toes. COMPARISON: Right foot radiographs of same day. MRI right foot 10/19/2022 TECHNIQUE: Multiplanar multisequence MRI of the right foot was obtained without use of IV contrast. FINDINGS: Status post amputation of the distal phalanx right first toe. Bony erosions with cortical irregularity at the amputation site again noted with areas of decreased T1 and increased T2 marrow signal. There is additional cortical irregularity of the distal second phalanx with preserved T1 marrow signal. No acute fractures or dislocations. There is diffuse atrophy of the intrinsic musculature with deep tissue, intramuscular subcutaneous edema. Mild to moderate multifocal osteoarthritis. Abnormal thickening of the flexor hallucis tendon compatible with chronic tendinosis/tearing. IMPRESSION: 1. Prior amputation of the distal phalanx right great toe with findings suggestive of subacute osteomyelitis at the amputation stump. 2. Mild cortical irregularity of the second distal phalanx with preserved T1 and T2 marrow signal. This may be posttraumatic or represent sequela of chronic osteomyelitis. 3. Chronic denervation changes with nonspecific dorsal predominant subcutaneous edema. ACT 112: Negative or not required by law. The above report was generated using voice recognition software. It may contain grammatical, syntax or spelling errors. Electronically signed by: Luis Miguel Stark M.D. 05/14/2023 6:00 PM Medications Administered Current Inpatient Medications Acetaminophen (Acetaminophen 325 Mg Tab) 650 mg PO Q4H PRN PRN Reason: Pain or Fever Stop: 06/13/23 17:10 Dextrose (Dextrose 50% 50 Ml Syringe) 25 - 50 ml IV UD PRN; Protocol PRN Reason: Hypoglycemia Protocol Stop: 06/13/23 17:10 Glucagon (Glucagon For Inj 1 Mg Vial) 1 mg SQ UD PRN; Protocol PRN Reason: Hypoglycemia Protocol Stop: 06/13/23 17:10 Glucose (Glucose 10 Tab/Tube) 4 - 8 tab PO UD PRN; Protocol PRN Reason: Hypoglycemia Treatment Stop: 06/13/23 17:10 Glucose (Glucose 40% Gel 15 Gm Tube) 15 - 30 gm PO UD PRN; Protocol PRN Reason: Hypoglycemia Protocol Stop: 06/13/23 17:10 Levofloxacin/Dextrose (Levaquin/D5w) 500 mg in 100 mls @ 100 mls/hr IV Q24H [facility] Stop: 06/25/23 13:59 Last Admin: 05/15/23 14:16 Dose: 100 mls/hr Cefepime HCl 2,000 mg/ Syringe 20 mls @ 5 mls/min IV Q8H [facility]; Protocol Stop: 06/25/23 21:59 Last Admin: 05/15/23 14:16 Dose: 5 mls/min Insulin Aspart (Insulin Aspart Per Unit Charge) 0 units SC ACHS [facility] Stop: 06/13/23 17:10 Last Admin: 05/15/23 11:57 Dose: 6 units Losartan Potassium (Losartan Potassium 50 Mg Tab) 100 mg PO QAM [facility] Stop: 06/14/23 12:44 Last Admin: 05/15/23 13:26 Dose: 100 mg Miscellaneous (Carbohydrates For Hypoglycemia ) 15 - 30 gm PO UD PRN PRN Reason: Hypoglycemia Protocol Stop: 06/13/23 17:10 Ondansetron HCl (Ondansetron Inj 2 Mg/Ml 2 Ml Vial) 4 mg IV Q6H PRN PRN Reason: Nausea Stop: 06/13/23 17:10 Simvastatin (Simvastatin 10 Mg Tab) 10 mg PO HS [facility] Stop: 06/13/23 20:59 Last Admin: 05/14/23 20:27 Dose: 10 mg
[2023-05-15] MEDS ORDERED: VANCOMYCIN CONSULT ACTIVE PRN (15:58)
[2023-05-15] MEDS ORDERED: VANCOMYCIN HCL 1,250 MG in SODIUM CHLORIDE 0.9% 500 ML IV SCH (16:00)
[2023-05-15] MEDS ORDERED: VANCOMYCIN HCL 2,000 MG in SODIUM CHLORIDE 0.9% 500 ML IV ONE (16:15)
--- NOTE | 2023-05-15 19:04 | Pharmacy Report ---
Pharmacy PK ABX Note - Date of Service May 15, 2023 - Assessment and Plan Assessment 47 year old M receiving VANCOMYCIN/CEFEPIME for treatment of SSTI/DIABETIC FOOT INFECTION/OSTEOMYELITIS. Pertinent microbiologic data includes: BLOOD cultures no growth x24 hours. S/p right 1st and 2nd toe amputation 05/14/23. History of alexis-sensitive pseudomonas in foot culture (11/07). ID consulted, recommends 7-10 more days of antibiotics (day #1 05/14) Day # 2 of antimicrobial therapy. Plan Vancomycin * Loading dose: 2000 mg IV x 1 * Maintenance dose: 750 mg IV every 8 hours * Regimen is predicted to achieve target AUC/SANDIE of 400-600 mg/L.hr * Trough level ordered for: 05/17/23 @ 0530 Pharmacy will continue to follow and will adjust dose/frequency as necessary. Thank you. Pharmacy has transitioned to AUC monitoring for vancomycin. AUC/SANDIE is the preferred PK/PD target and is associated with decreased risk of nephrotoxicity compared to traditional trough targets.
--- NOTE | 2023-05-15 21:02 | Orthopedic Progress Note ---
Date of Service May 15, 2023 Assessment & Plan (1) Acute osteomyelitis of toe of right foot: Plan: Patient seen at bedside resting comfortably in . Patient is status post day #1 right first and second toe amputation (DOS 05/14/23). Source control obtained. Awaiting micro and path reports. Patient is weight bearing as tolerated in surgical heel. Patient ok for discharge per podiatry. He will return to office in one week for suture removal. Will continue to follow while in house. Admission and Anticipated Discharge Date Admission Date: May 14, 2023 Subjective Patient seen at bedside resting comfortably in . Patient is status post day #1 right first and second toe amputation (DOS 05/14/23). Patient resting comfortably with no complaints. Dressing clean, dry, and intact. Physical Exam Constitutional: well developed, well nourished, cooperative and comfortable Eyes: normal visual dos santos by confrontation Neck: normal visual inspection and trachea midline Respiratory: normal respiratory effort and + respiratory distress Cardiovascular: Rate/Rhythm: regular rate and regular rhythm Musculoskeletal: Extremities: extremities normal to inspection and + amputation noted (Right first and second toe amputation) Neurologic: moves all extremities (Epicritic sensation) Psychiatric: Orientation: alert and oriented x 3 Results & Data Vital Signs (Past 12 Hours) Vital Signs Temp Pulse Pulse Resp BP BP Pulse Ox 05/15/23 19:47 36.6 C 86 17 153/96 H 98 05/15/23 16:00 94 H 05/15/23 14:59 36.8 C 93 H 18 123/97 97 05/15/23 12:05 36.9 C 86 18 155/81 H 96 O2 Del Method 05/15/23 19:47 Room Air 05/15/23 16:00 05/15/23 14:59 Room Air 05/15/23 12:05 Room Air
[2023-05-15] MEDS: SIMVASTATIN 10 MG TAB PO SCH (21:04)
[2023-05-16] MEDS ORDERED: VANCOMYCIN HCL 750 MG in SODIUM CHLORIDE 0.9% 250 ML IV SCH (06:00)
[2023-05-16] MEDS: CEFEPIME 2,000 MG in SYRINGE 0 ML IV SCH (06:01)
[2023-05-16 07:10] LABS: Basophils # (auto) 0.06 K/uL (0.00-0.20); Basophils % (auto) 0.9 %; Eosinophils # (auto) 0.11 K/uL (0.00-0.50); Eosinophils % (auto) 1.7 %; Hematocrit (blood only) 42.4 % (42.0-52.0); Hemoglobin 15.7 g/dl (14.0-18.0); Immature Granulocytes # (auto) 0.02 K/uL (0.01-0.20); Immature Granulocytes % (auto) 0.3 %; Lymphocytes # (auto) 0.96 K/uL (1.20-3.40); Lymphocytes % (auto) 14.8 %; Mean Corpuscular Hemoglobin 30.9 pg (25.0-34.0); Mean Corpuscular Volume 83.5 fL (80.0-100.0); Mean Platelet Volume 10.6 fL (9.4-12.4); Monocytes # (auto) 0.74 K/uL (0.11-0.59); Monocytes % (auto) 11.4 %; Neutrophils # (auto) 4.58 K/uL (1.40-6.50); Neutrophils % (auto) 70.9 %; Platelet Count 248 K/uL (130-400); RDW Coefficient of Variation 12.1 % (11.5-14.5); Red Blood Count 5.08 M/uL (4.70-6.10); White Blood Count 6.47 K/ul (4.8-10.8)
[2023-05-16 07:15] LABS: Albumin Globulin Ratio 1.5 (0.9-2); Albumin Level 3.9 gm/dl (3.4-5.0); BUN Creatinine Ratio 16.5 (10-20); Bilirubin,Total 0.5 mg/dl (0.2-1.0); Calcium 8.9 mg/dl (8.6-10.3); Creatinine Clr Calc Pharmacy 75.9 ml/min; Est GFR (African American) 76.9 ml/min; Est GFR (Non-African American) 66.4 ml/min; Globulin 2.6 gm/dl (2.5-4.0); Magnesium 1.8 mg/dl (1.7-2.4); Potassium 3.3 mmol/L (3.5-5.1); Total Protein 6.5 gm/dl (6.0-8.3)
[2023-05-16] MEDS ORDERED: POTASSIUM CHLORIDE CRTAB 20 MEQ TABCR PO STA (08:00)
--- NOTE | 2023-05-16 08:04 | Hospitalist Progress Note ---
Date of Service May 16, 2023 Assessment & Plan (1) Acute osteomyelitis of toe of right foot: Plan: Diabetic foot infection/recurrent osteomyelitis involving right foot- History of amputation of distal phalanx of right first toe in November 07 Previously had cultures growing pansensitive Pseudomonas Arterial Dopplers on 10/20/2022 showed normal indices X-ray today showing osteomyelitis of proximal phalanx of right first toe, and likely involvement of distal phalanx of right second toe Ordered MRI foot for further assessment * 1. Prior amputation of the distal phalanx right great toe with findings suggestive of subacute osteomyelitis at the amputation stump. * 2. Mild cortical irregularity of the second distal phalanx with preserved T1 and T2 marrow signal. This may be posttraumatic or represent sequela of chronic osteomyelitis. 05/15 IV abx: Cefepime 2 g IV every 12 hours and levofloxacin 500 mg IV daily Podiatry consulted p Right Foot First and Second Toe Amputation(Right) - Seth Mcduffie, DPM, MS Pathology from OR pending IVF ordered, now can dc Blood cultures NGTD WBC wnl, afebrile Pain control ID consulted PT/OT consults, ordered NWB RLE until otherwise instructed by podiatry (able to be heel weight bearing, adjusted order). Rx to CM for wheeled walker. Patient hopeful for dc this weekend (possible tomorrow) 05/16 - confirmed w/ micro no specimen, must have been sent to path w/o excision, no prior cx order placed. Surgical pathology pending. Discussed w/ Dr Mcduffie and believes good margins, was able to obtain source control. Per discussion w/ ID, continued Cefepime but added Vanco for now, if blood cultures remain NGTD planning for 7-10 days Doxy/Levaquin PO from 05/14 (2) Abscess of great toe, right: Plan: as above, s/p amputation. cx/pathology per podiatry pending (3) Cellulitis of right foot: Plan: improved w/ abx, continued (4) HTN (hypertension): Plan: BP 155/81 at present Will resume losartan 100mg daily for today IVF discontinued, if keeping up w/ PO intake plan to resume HCTZ in AM (5) Hyperlipemia: Plan: continue simvastatin (6) DM II (diabetes mellitus, type II), controlled: Plan: A1c 5.7 in October, holding home metformin. A1c 6.7 BSG ACHS, sliding scale while inpatient. will tighten parameters for today w/ IV mag/dextrose infusion for tighter control Monitor BSGs Hypomagnesemia Mag 1.5-- IV replacement ordered and will monitor w/ AM labs (7) Osteomyelitis of right foot: (8) Diabetic foot infection: Plan continued inpatient stay f/u pathology, ID consulted, PT/OT pending possible dc tomorrow vs Thursday, likely will need home health (will need dressing change orders by podiatry) Admission and Anticipated Discharge Date Admission Date: May 14, 2023 Results & Data Results & Data Vital Signs (Past 12 Hours) Vital Signs Temp Pulse Pulse Resp BP Pulse Ox O2 Del Method 05/16/23 07:23 62 05/16/23 03:24 36.9 C 80 17 130/86 95 Room Air 05/15/23 23:38 37.0 C 72 18 129/89 95 Room Air 05/15/23 20:58 77 PG Care Time/CCT Total # of Minutes Spent Total Time Spent with Patient: Total time spent is greater than 50% in coordination of care (as documented) at patient's floor/unit and/or counseling patient: Coding Diagnoses Acute osteomyelitis of toe of right foot M86.171 Abscess of great toe, right L02.611 Cellulitis of right foot L03.115 HTN (hypertension) I10 Hyperlipemia E78.5 DM II (diabetes mellitus, type II), controlled E11.9 Osteomyelitis of right foot M86.9 Diabetic foot infection E11.628; L08.9
[2023-05-16] MEDS: INSULIN ASPART PER UNIT CHARGE SC SCH (08:43)
[2023-05-16] MEDS: LOSARTAN POTASSIUM 50 MG TAB PO SCH (08:44)
--- NOTE | 2023-05-16 10:15 | Discharge Summary ---
Date of Service May 16, 2023 Admission HPI Per Admitting Provider The patient is a 39-year-old male with a past medical history including right foot osteomyelitis, histoplasma Pneumonia, Multiple Pulmonary Nodules, Diabetes Mellitus, Hyperlipidemia, Hypertension and Obesity. He Initially Underwent Evaluation in October for Right Great Toe Infection, and Had Amputation of the Distal Phalanx by Dr. Preston at That Time. Cultures at That Time Grew Pseudomonas That Was Pansensitive. He was recently seen at [place] emergency department, and was placed on clindamycin, and with worsening symptoms, who presented to the ED and identified assessment. X-ray of right foot shows amputation of distal phalanx of the right first toe, osteomyelitis of proximal phalanx right first toe, and suggestion of osteomyelitis of distal phalanx of right second toe. Admission Exam Per Admitting Provider The patient is awake, alert and oriented 3, well developed and well nourished, normocephalic and atraumatic, lying in bed and in no acute distress. HEENT--PERRL, EOMI, mucous membranes and oropharynx normal. Neck--supple. No JVD. No bruits. Thyroid normal, trachea midline, no adenopathy. Heart--normal S1 and S2. No murmurs, rubs or gallops. Lungs--clear bilaterally, no respiratory distress, no accessory muscle use. Abdomen--normal bowel sounds and soft. Nontender. Nondistended, no hernias or masses, no organomegaly. Extremities--right foot: Status post amputation distal phalanx of first toe. Erythema involving right second toe, and along the dorsum of right foot in MTP distribution Dermatologic--normal skin turgor, normal color, no abnormal lymph nodes, no rash. Neurologic--cranial nerves II through XII grossly intact. Rheumatologic--normal range of motion. Psychiatric--normal affect. Principal Diagnosis Osteomyelitis L foot Discharge Exam General: WD/WN male sitting up in bed, significant other at bedside, NAD, dressed and ready for discharge if possible HEENT: head normocephalic, atraumatic, mmm, trachea midline Resp: even/unlabored, no w/c/r, on room air CV: RRR, no significant mrg, no pitting edema/calf tenderness, cap refill wnl GI: +BS, soft/NT ; no mohan MSK/Neuro: dressing to RIGHT foot, c/d/i, cap refill wnl, able to wiggle toes Psych: aox3, cooperative with exam Discharge Data Allergies Allergy/AdvReac Type Severity Reaction Status Date / Time No Known Allergies Allergy Unverified 05/14/23 14:00 Consultations 05/14/23 13:24 ED Decision to Admit Stat 05/14/23 14:08 Consult Podiatry Routine 05/15/23 12:38 Consult Infectious Diseases Routine Procedures Performed Operation Date: 05/14/23 18:15 Actual Procedures p Right Foot First and Second Toe Amputation(Right) - Seth Mcduffie DPM, MS Ordered Studies Foot X-Ray 05/14/23 11:35 XR foot RT min 3V routine CLINICAL HISTORY: Right foot wounds. COMPARISON: MRI of the right foot October 19, 2022. Right foot radiographs November 02, 2022. FINDINGS: There are postoperative findings consistent with resection of the distal phalanx of the right first toe. Interval erosion of the distal aspect of the right first proximal phalanx is noted which compared to radiographs of November 02, 2022. Interval mild erosion of the distal tuft of the distal phalanx of the right second toe is also noted. No additional erosions are identified within the right foot. There is moderate vascular calcification. No radiopaque foreign bodies are present. There are no fractures. IMPRESSION: 1. Status post amputation of the distal phalanx of the right first toe. 2. Interval bony erosion of the distal aspect of the proximal phalanx of the right first toe. This suggests acute to subacute osteomyelitis. 3. Interval subtle erosion of the distal tuft of the distal phalanx of the right second toe suggestive of age indeterminate osteomyelitis. 4. No fractures within the right foot. ACT 112: Negative or not required by law. Electronically signed by: Rashid Aguilar M.D. 05/14/2023 12:09 PM Foot MRI 05/14/23 13:59 MR foot RT w/o con HISTORY: 47 years-old Male osteomyelitis R 1st and 2nd toes, partial amp hx chronic right foot pain with probable osteomyelitis of the first and second toes. COMPARISON: Right foot radiographs of same day. MRI right foot 10/19/2022 TECHNIQUE: Multiplanar multisequence MRI of the right foot was obtained without use of IV contrast. FINDINGS: Status post amputation of the distal phalanx right first toe. Bony erosions with cortical irregularity at the amputation site again noted with areas of decreased T1 and increased T2 marrow signal. There is additional cortical irregularity of the distal second phalanx with preserved T1 marrow signal. No acute fractures or dislocations. There is diffuse atrophy of the intrinsic musculature with deep tissue, intramuscular subcutaneous edema. Mild to moderate multifocal osteoarthritis. Abnormal thickening of the flexor hallucis tendon compatible with chronic tendinosis/tearing. IMPRESSION: 1. Prior amputation of the distal phalanx right great toe with findings suggestive of subacute osteomyelitis at the amputation stump. 2. Mild cortical irregularity of the second distal phalanx with preserved T1 and T2 marrow signal. This may be posttraumatic or represent sequela of chronic osteomyelitis. 3. Chronic denervation changes with nonspecific dorsal predominant subcutaneous edema. ACT 112: Negative or not required by law. The above report was generated using voice recognition software. It may contain grammatical, syntax or spelling errors. Electronically signed by: Luis Miguel Stark M.D. 05/14/2023 6:00 PM Hospital Course (1) Acute osteomyelitis of toe of right foot: Diabetic foot infection/recurrent osteomyelitis involving right foot in patient w/ hx amputation distal phalanx of right first toe in November [address] Preston. Prior cx w/ pseudomonas. Arterial dopplers in October with normal indicies (chews tobacco, cessation encouraged) Xray on admit w/ osteomyelitics proximal phalanx of right first toe, and likely involvement of distal phalanx of right second toe Ordered MRI foot for further assessment which showed * 1. Prior amputation of the distal phalanx right great toe with findings suggestive of subacute osteomyelitis at the amputation stump. * 2. Mild cortical irregularity of the second distal phalanx with preserved T1 and T2 marrow signal. This may be posttraumatic or represent sequela of chronic osteomyelitis. Podiatry consulted IV abx w/ Cefepime/Levaquin ordered s/p Right Foot First and Second Toe Amputation(Right) - Seth Mcduffie DPM, MS on 05/14 Pathology from OR pending. Discussed w/ microbiology and samples sent from OR in formalin, not able to culture ID consulted, switched to Vanco in place of Levaquin while inpatient but at discharge planned 10 day total course w/ Doxycycline 100mg BID and Levaquin 750mg daily. Confirmed with Dr Mcduffie clear margins/source control obtained WBC wnl, afebrile Per Dr Mcduffie, heel weight bearing on the RIGHT. Provided post-op surgical shoe. Per podiatry, not to change dressing until seen in office 1 week. Following will have home health visiting for continued dressing changes. Stable for dc from orthopedic standpoint Discussed if any redness/saturation of dressing to call office sooner, or for any fevers/chills or other issues. PT cleared for home prior to discharge (2) Abscess of great toe, right: as above, s/p amputation. pathology per podiatry pending at dc. No OR cx obtained - see above (3) Cellulitis of right foot: improved w/ abx, continued to complete 10 day course for residual SSTI per ID as above (4) HTN (hypertension): Stable/elevations at times but asymptomatic Losartan resumed (initially held post-op) Continued home meds at discharge (5) Hyperlipemia: continued simvastatin (6) DM II (diabetes mellitus, type II), controlled: A1c 5.7 in October, held metformin while inpatient Repeat A1c 6.7 and utilized SSI while inpatient Home metformin resumed at dischage but can discuss increasing to 1000mg daily vs BID in follow up with PCP Hypomagnesemia Mag 1.5-- IV replacement ordered wnl on repeat. K 3.3 and PO replacement ordered prior to dc (7) Osteomyelitis of right foot: (8) Diabetic foot infection: Total Time Total Time Spent Total Time Spent (In Minutes): 50 Discharge Plan Discharge Items Patient Disposition: Home - Home Health Services Reason For Visit: DIABETIC FOOT INFECTION, OSTEOMYELITIS Discharge Diagnosis: Osteomyelitis of RIGHT FOOT Condition on Discharge: Good Activity: As commented below Activity Comment: heel weight bearing on the right Non-emergency contact: Primary Care Provider and Surgeon Call non-emergency contact if: you have any medication questions, your symptoms worsen, your pain is not controlled and you have a fever Follow-up/Referrals: Seth Mcduffie DPM, MS [Physician] - Vern Driscoll MD [Primary Care Provider] - Diet: Carb Consistent or DM2 and Heart Healthy Addtl Attending Provider Instructions: You have been hospitalized for infection to your foot. Podiatry was consulted, Dr Mcduffie, and you underwent surgery for amputation. Per podiatry, there was good margins of tissue and source control was obtained. Blood cultures have remained negative. White count is normal and you have been afebrile. Infectious disease was consulted and as discussed, we are sending you home on a course of oral antibiotics for another 8 days to complete 10 day course. These are Levaquin 750mg once daily and Doxycycline 100mg TWICE daily. Please follow up with Dr Mcduffie next week for dressing change. We are arranging home health for dressing changes following. This should not be changed until seen by Dr Mcduffie unless having increased drainage/dressing becomes saturated. Please call their office if you have any increased drainage/redness or issues or fever/chills. You should continue using walker to prevent putting as much pressure on your foot and be HEEL weight bearing. We have also provided post-op surgical shoe for comfort. Smoking/chewing tobacco cessation is encouraged as discussed. Please follow up with primary care in the next 7-10 days. Please return to the ER with any fevers, chills, redness/swelling, or for any other symptoms concerning for you. It has been a pleasure being a part of the medical team providing for you while you have been in the hospital. Pending Studies at Discharge: Yes Studies:: Pathology Stand-Alone Forms: My [facility], Smoking Cessation Medications and DC Order Prescriptions: New levofloxacin 750 mg tablet 750 mg PO DAILY 8 Days Qty: 8 0RF doxycycline hyclate 100 mg tablet 100 mg PO BID 8 Days Qty: 16 0RF Continued naproxen sodium [Aleve] 220 mg Tablet 220 mg PO BID simvastatin 10 mg tablet 10 mg PO HS Hold Instructions: While on Itraconazole acetaminophen [Tylenol Extra Strength] 500 mg tablet 500 mg PO QID PRN (Reason: fever) Qty: 30 0RF metformin 500 mg tablet 0 mg PO DAILY Rx Instructions: Patient taking 1000mg by mouth once in the morning. Original directions: 1000mg by mouth twice daily chlorthalidone 25 mg tablet 25 mg PO DAILY amlodipine 10 mg tablet 10 mg PO DAILY losartan 100 mg tablet 100 mg PO DAILY aspirin 81 mg Tablet 81 mg PO DAILY Discharge Orders: Discharge Order (Routine); Ordered 05/16/23 Ordered By: Shivani Llamas/Other Patient Handouts: Osteomyelitis Dc Admission Data Admit Date/Time: 05/14/23 14:08 Attending Provider: Navdeep Stapleton Admit Provider: Hair Moore Primary Care Provider: Vern Driscoll Other Providers: Hair Moore; Seth Mcduffie; Tameka Antoine; Elda Tapia; Jud Rico; Tsering Arboleda; Norma Waters; Manish Shaffer; Sarah Hernandez; Gladys Marino Other Interventions: Discharge Summary Assessment (RN) Last Done: 05/16/23 10:11 Supervising Physician Co-Signing Physician Notes The patient was not seen by me. The chart was reviewed. Case discussed with JS Vasquez. Agree with assessment and plan Coding Level of Care Code 10808 INP/OBS DISCH >30 MIN Diagnoses Acute osteomyelitis of toe of right foot M86.171 Abscess of great toe, right L02.611 Cellulitis of right foot L03.115 HTN (hypertension) I10 Hyperlipemia E78.5 DM II (diabetes mellitus, type II), controlled E11.9 Osteomyelitis of right foot M86.9 Diabetic foot infection E11.628; L08.9
--- NOTE | 2023-05-16 11:00 | Orthopedic Progress Note ---
Date of Service May 16, 2023 Assessment & Plan (1) Acute osteomyelitis of toe of right foot: Plan: Patient seen at bedside resting comfortably in . Patient is status post day #2 right first and second toe amputation (DOS 05/14/23). Patient is weight bearing as tolerated in surgical heel. Patient ok for discharge per podiatry. He will return to office in one week for suture removal. Admission and Anticipated Discharge Date Admission Date: May 14, 2023 Subjective Patient seen at bedside resting comfortably in . Patient is status post day #2 right first and second toe amputation (DOS 05/14/23). Patient and present at bedside. Patient resting comfortably with no complaints. Dressing clean, dry, and intact. Physical Exam Constitutional: well developed, well nourished, cooperative and comfortable Eyes: normal visual dos santos by confrontation Neck: normal visual inspection and trachea midline Respiratory: normal respiratory effort and + respiratory distress Cardiovascular: Rate/Rhythm: regular rate and regular rhythm Musculoskeletal: Extremities: extremities normal to inspection and + amputation noted (Right first and second toe amputation) Skin: + incision (Sutures intact. Skin well co -apted) Neurologic: moves all extremities (Epicritic sensation) Psychiatric: Orientation: alert and oriented x 3 Results & Data Vital Signs (Past 12 Hours) Vital Signs Temp Pulse Pulse Resp BP BP Pulse Ox 05/16/23 10:11 36.7 C 89 18 162/95 H 130/86 98 05/16/23 08:11 36.7 C 89 18 162/95 H 98 05/16/23 07:23 62 05/16/23 03:24 36.9 C 80 17 130/86 95 05/15/23 23:38 37.0 C 72 18 129/89 95 O2 Del Method 05/16/23 10:11 05/16/23 08:11 Room Air 05/16/23 07:23 05/16/23 03:24 Room Air 05/15/23 23:38 Room Air
[2023-05-17] MEDS ORDERED: VANCOMYCIN LEVEL ONE (05:00)
== END 2023-05-16 11:53 | disposition home health service (06) | DRG 617 ==
LOC: ED 11:10 → EDINP 14:08 → SUATTDRO 14:08 → EDINP 18:02 → 2E 21:02